=== PATIENT | female | born 1950 | race Caucasian/White ===

== ENCOUNTER 2016-09-17 07:42 | Outpatient (CLI) ==
[2016-02-28 11:35] VITALS: BMI 28.3
--- NOTE | 2016-09-17 08:07 | DI ---
EXAM: PA and lateral views of the chest HISTORY: Cough and weight loss COMPARISON: CT chest 02/13/2016 and Chest x-ray 02/11/2016 FINDINGS: The cardiomediastinal silhouette is normal. There is no pneumothorax or pleural effusion . There is no consolidation, nodule or mass. The osseous structures demonstrate mild scattered deg enerative disease of the spine. There are surgical changes in the cervical spine and the right upper quadrant. IMPRESSION: No acute cardiopulmonary process or consolidation.
--- NOTE | 2016-09-17 08:49 | CT ---
EXAM: CT ABDOMEN AND PELVIS HISTORY: Weight loss, cough TECHNIQUE: CT abdomen and pelvis with intravenous contrast. Images were reconstructed using 5 mm se ction thickness. Reformations were prepared. 100 ml of Visipaque 320 FINDINGS: Comparison may be made to 06/17/2016. No focal hepatic lesions are identified. Spleen appears normal. Gallbladder is absent. There is d ilatation of the common bile duct estimated at least 1.1 cm. There is pancreatic ductal dilatation. No well-defined portahepatis, pancreatic or ductal mass is seen. No evidence of pancreatic inflam mation. Adrenal glands appear normal. Kidneys are within normal limits. Moderately severe atheros clerotic disease with no aneurysmal caliber of the aorta. No obvious retroperitoneal or mesenteric lymphadenopathy. Gastric wall is mildly thickened, nonspecific. The appendix has been removed. No well-defined mass of the colon within limits of this exam. Bowel gas pattern is within normal limits. Uterus is abs ent. Urinary bladder is grossly unremarkable. There is no ascites. No ventral abdominal wall defe ct is identified. Degenerative changes of the spine. Lung bases are grossly clear. IMPRESSION: 1. Post cholecystectomy state. Common bile duct dilatation similar to that previously seen. Mild dilatation of the main pancreatic duct also probably similar to that previously seen (prior study wa s unenhanced). No well-defined ductal or pancreatic mass identified. No intrahepatic biliary dilat ation No pancreatic inflammation or lymphadenopathy. Correlate clinically. Consider further workup if indicated. 2. Moderately severe atherosclerotic disease with no aneurysmal caliber of the aorta. 3. Diffuse, relatively mild gastric wall thickening may be secondary to gastritis. Correlate clini fawad. Upper gastrointestinal series or endoscopy can be considered if indicated.
== END 2016-09-17 07:43 | disposition home or self-care (01) ==
LOC: RAD 07:42
PROVIDERS: ATTEND Internal Medicine
DX: R63.4 Abnormal weight loss (principal); R05 Cough

== ENCOUNTER 2016-09-24 06:27 | Outpatient (CLI) ==
[2016-02-28 11:35] VITALS: BMI 28.3
--- NOTE | 2016-09-27 07:32 | ECHO2D ---
Date of Exam: 09/24/2016 Ordering Physician: DR. WOODS Reason for Echo: CHEST PAIN M-Mode Normal Adult Results LV Dimensions Normal Adult Results AoV Opening excursions >1.6 >1.6 LVEDD-base- 3.5-5.8 4.8 Ao root dimensions 2.0-3.7 2.7 LVESD-base- 3.1-4.6 L. Atrium dimensions 1.9-3.8 3.7 Post. Wall thickness 0.8-1.1 1.0 IV septum (thickness) 0.7-1.2 1.1 Post. Wall excursion 0.72-1.3 NORMAL Septal motion NORMAL Systolic motion R. Ventricular cavity 1.5-2.0 NORMAL LVEF 60% 62% Paradoxical septal wall motion NORMAL 2-D :2-D M Mode Echocardiogram was performed using apical four chamber and left parasternal long and short axis views. Mitral, tricuspid and aortic valves appear to be normal. Contractility of the left ventricle seems to be normal, so is the cavity size. Left atrial cavity size and aortic root appear to be normal. There is no pericardial effusion. There is no thrombus noted in the left ventricular or left aortic cavity. No mitral valve prolapse noted. M-MODE: MV: NORMAL AV: NORMAL TV: NORMAL PV: CHAMBER SIZE: NORMAL WALL MOTION: NORMAL PERICARDIUM: NORMAL INTERPRETATION: 1. NORMAL 2'D' ' M' MODE ECHOCARDIOGRAM [facility]
== END 2016-09-24 06:28 | disposition home or self-care (01) ==
LOC: CAR 06:27
PROVIDERS: ATTEND Internal Medicine
DX: R07.9 Chest pain, unspecified (principal)

== ENCOUNTER 2016-09-27 06:28 | Outpatient (CLI) ==
[2016-02-28 11:35] VITALS: BMI 28.3
--- NOTE | 2016-09-27 11:56 | NM ---
Cardiac Stress Test HISTORY: Chest pain. COMPARISON: None of this type. TECHNIQUE: Resting: The patient was injected with 32.1 mCi of 99m technetium Sestamibi (Cardiolite) intravenou sly after which a "resting" SPECT study of the heart was performed. Stress: The patient was stressed using a Jaime protocol and at the appropriate time injected with 1 3.2 mCi of 99m technetium Sestamibi (Cardiolite) after which a "stress" SPECT study of the heart was performed. Gated images of the heart were also obtained to assess wall motion and calculate ejectio n fraction. For details of the stress protocol employed, reference is made to the separate report o f the performing physician. FINDINGS: The stress perfusion images demonstrate modest decreased activity in the mid to basal inf erolateral wall segment, which appears to improve at rest. The computer recesses this decrease in ac tivity is equivocal. The resting perfusion images demonstrate no evidence of significant redistribut ion/ischemia elsewhere. The left ventricular ejection fraction (LVEF) is 62 %. The left ventricular wall motion was not directly assessed. IMPRESSION: 1. Left ventricular myocardial perfusion demonstrates evidence of modest decreased activity in the mid to basal inferolateral wall segment which improves at rest as discussed in the report. Computer assessment consider this equivocal for ischemia. The examination shows no evidence of ischemia els ewhere. 2. The left ventricular ejection fraction (LVEF) is 62 %. 3. The left ventricular wall motion was not directly assessed.
--- NOTE | 2016-09-29 09:57 | STRESSECHO ---
Date of Test: 09/27/16 Reason for Exam: CHEST PAIN Ordering Physician : KAYCEE WOODS Current Medications: LEXAPRO, ULTRAM, NEURONTIN, LISINOPRIL, ZOLOFT, BUSPAR Physical Findings: S1, S2, NO S3 Resting EKG: SINUS RHYTHM/ NO ACUTE CHANGES Target Heart Rate: 130/154 STAGE MPH/GRADE HEART RATE BPM BLOOD PRESSURE mmhg RHYTHM S-T SEGMENT +/- UP DOWN SYMPTOMS,COMMENTS At Rest 70 150/100 SR X NONE 1 1.7/10% 112 206/86 SR X NONE 2 2.5/12% 3 3.4/14% 4 4.2/16% 5 5.0/18% Immediately after 132 210/96 SR X SHORT OF BREATH Durations of Exercise: 5:08 Maximum Heart Rate Reached: 132 Reason for Termination: SHORT OF BREATH 3 MIN POST EXERCISE: HR 81 BPM, BP 182/84 MMHG, SINUS RHYTHM, S-T SEGMENT+/- , SHORT OF BREATH INTERPRETATION: 94% OXYGEN SATURATION WITH EXERCISE ON ROOM AIR METS 7.0 1. TEST NEGATIVE FOR ISCHEMIA ST-T WAVE CHANGES 2. NO CHEST PAIN OR CHEST DISCOMFORT 3. NO ARRHYTHMIAS 4. BLOOD PRESSURE RESPONSE: HYPERTENSION AT REST AND WITH EXERCISE NORMAL LEFT VENTRICULAR CONTRACTILITY--RESTING AND POST EXERCISE MTDD
--- NOTE | 2016-09-29 10:02 | ECHOSTRESS ---
Date of Exam: 09/27/16 Ordering Physician: KAYCEE WOODS Reason for Echo: CHEST PAIN, STRESS TEST--NO ISCHEMIA M-Mode Normal Adult Results LV Dimensions Normal Adult Results AoV Opening excursions >1.6 LVEDD-base- 3.5-5.8 Ao root dimensions 2.0-3.7 LVESD-base- 3.1-4.6 L. Atrium dimensions 1.9-3.8 Post. Wall thickness 0.8-1.1 IV septum (thickness) 0.7-1.2 Post. Wall excursion 0.72-1.3 Septal motion Systolic motion R. Ventricular cavity 1.5-2.0 LVEF 60% Paradoxical septal wall motion 2-D: NORMAL LEFT VENTRICULAR CONTRACTILITY--RESTING AND POST EXERCISE M-MODE: MV: AV: TV: PV: CHAMBER SIZE: WALL MOTION: NORMAL LEFT VENTRICULAR CONTRACTILITY--RESTING AND POST EXERCISE PERICARDIUM: INTERPRETATION: 1. NORMAL LEFT VENTRICULAR CONTRACTILITY--RESTING AND POST EXERCISE MTDD
== END 2016-09-27 06:29 | disposition home or self-care (01) ==
LOC: CAR 06:28
PROVIDERS: ATTEND Internal Medicine
DX: R07.9 Chest pain, unspecified (principal)

== ENCOUNTER 2016-11-29 12:53 | Outpatient (CLI) | payer OTHER ==
[2016-02-28 11:35] VITALS: BMI 28.3
--- NOTE | 2016-11-29 13:53 | DI ---
EXAM: Three x-rays of the right shoulder. Comparison: X-ray of the chest performed 02/11/2016. Reason for exam: Right shoulder pain. FINDINGS: There are degenerative changes seen within the right shoulder. The humeral head articula barbara with the bony glenoid. The acromioclavicular joint space and glenohumeral joint spaces are well maintained. No acute fracture or dislocation. Operative changes are seen after anterior cervical d iscectomy and fusion. Impression: 1. No acute fracture or dislocation in the right shoulder. 2. Mild to moderate arthrosis. Image interpretation faxed to [facility] at [phone] hours on the day of examination 11/29
== END 2016-11-29 12:54 | disposition home or self-care (01) ==
LOC: RAD 12:53
PROVIDERS: ATTEND Internal Medicine
DX: M25.511 Pain in right shoulder (principal)

== ENCOUNTER 2017-03-16 17:20 | Emergency (ER) ==
[2017-03-16 17:21] VITALS: BMI 28.3
[2017-03-16 17:25] VITALS: BP 167/81; TEMP 98.2
--- NOTE | 2017-03-16 17:36 | ED.PDOC ---
General ED Provider: Dr. ARELI MORALES Chief Complaint: Extremity Pain/Injury Stated Complaint: right shoulder pain Time Seen by Physician: 17:30 Mode of Arrival: Walk-In Information Source: Patient Exam Limitations: No limitations Primary Care Provider: KAYCEE WOODS Nursing and Triage Documentation Reviewed and Agree: Yes Musculoskeletal Complaint Exam - Shoulder Pain Complaint/Exam Mechanism of Injury: Reports: No known trauma Onset/Duration: chronic Symptoms Are: Still present Timing: Constant Episodes Lasting: chronic Initial Severity: Moderate Current Severity: Moderate Location: Reports: Discrete Character: Reports: Aching Alleviating: Reports: Rest Aggravating: Reports: Movement, Lifting, Flexion, Extension, Internal rotation Associated Signs and Symptoms: Denies: Swelling, Redness, Bruising, Fever, Weakness, Numbness, Tingling Related History: Reports: Similar episode Non-Orthopedic Risk Factors: Reports: None DVT Risk Factors: Reports: None Related Surgical History: Reports: None Differential Diagnoses: Closed Fracture Review of Systems - Review Of Systems Constitutional: Reports: No symptoms Eyes: Reports: No symptoms Ears, Nose, Mouth, Throat: Reports: No symptoms Respiratory: Reports: No symptoms Cardiac: Reports: No symptoms GI: Reports: No symptoms : Reports: No symptoms Musculoskeletal: Reports: Other (shoulder pain) Skin: Reports: No symptoms Neurological: Reports: No symptoms Endocrine: Reports: No symptoms Hematologic/Lymphatic: Reports: No symptoms All Other Systems: Reviewed and Negative Past Medical History - Past Medical History Endocrine: Reports: None Cardiovascular: Reports: Hypertension Respiratory: Reports: COPD Hematological: Reports: None Gastrointestinal: Reports: GERD Genitourinary: Reports: None Neuro/Psych: Reports: Anxiety, Depression Musculoskeletal: Reports: None Cancer: Reports: None Last Menstrual Period: hysterectomy - Surgical History General Surgical History: Reports: Hysterectomy, Appendectomy - Family History Family History: Reports: Unknown - Social History Smoking Status: Current every day smoker, Heavy tobacco smoker Hx Substance Use: No Alcohol Screening: None Physical Exam - Physical Exam Appearance: Well-appearing, No pain distress, Well-nourished Eyes: JUSTINO, EOMI, Conjunctiva clear ENT: Ears normal, Nose normal, Oropharynx normal Respiratory: Airway patent, Breath sounds clear, Breath sounds equal, Respirations nonlabored Cardiovascular: RRR, Pulses normal, No rub, No murmur GI/: Soft, Nontender, No masses, Bowel sounds normal, No Organomegaly Musculoskeletal: Normal strength, No edema, No calf tenderness, Limited ROM ( right shoulder ) Skin: Warm, Dry, Normal color Neurological: Sensation intact, Motor intact, Reflexes intact, Cranial nerves intact, Alert, Oriented Psychiatric: Affect appropriate, Mood appropriate Critical Care Note - Critical Care Note Total Time (mins): 0 Course - Course Vital Signs: Temp Pulse Resp BP Pulse Ox 03/16/17 17:21 98.2 F 79 20 167/81 H 97 Departure - Departure Time of Disposition: 17:36 (may at bedside discussed mri) Disposition: HOME SELF-CARE Discharge Problem: Shoulder pain Qualifiers: Chronicity: chronic Laterality: right Qualifier Code: (M25.511) Pain in right shoulder Instructions: Rotator Cuff Injury (ED), Rotator Cuff Tendinitis (ED), Tendinitis (ED) Condition: Good Pt referred to PMD for follow-up: Yes Additional Instructions: Please call your Family Physician as soon as possible to schedule a follow-up appointment. Allergies/Adverse Reactions: Allergies Sulfa (Sulfonamide Antibiotics) Adverse Reaction (Verified 03/16/17 17:27) Home Medications: Ambulatory Orders Diazepam [Valium] 5 mg PO BEDTIME 01/07/14 Gabapentin [Neurontin] 300 mg PO BID 01/07/14 Hydrocodone Bit/Acetaminophen [[place] 7.5-325] 1 tab PO QID 01/07/14 Omeprazole [Prilosec] 20 mg PO BIDAC 01/19/14 Buspirone HCl 30 mg PO BID 10/20/14 Fluticasone/Salmeterol 250/50 [Advair 250-50 Diskus] 1 puff IH BID #1 puff 10/20 Sertraline HCl [Zoloft] 100 mg PO BEDTIME 10/20/14 Tramadol HCl [Ultram] 50 mg PO TID 10/20/14 Lisinopril [Zestril] 40 mg PO BID #60 tablet 10/23/14 Aspirin [Aspir 81] 81 mg PO DAILY 11/05/16 Colestipol HCl 1 gm PO TID 11/05/16 Zofran Odt 4 mg PO Q6HR PRN 11/05/16 Disposition Discussed With: Patient
== END 2017-03-16 17:43 | disposition home or self-care (01) ==
LOC: ED 17:20
DX: M25.511 Pain in right shoulder (principal); G89.29 Other chronic pain; F17.210 Nicotine dependence, cigarettes, uncomplicated
CPT/HCPCS: 99282

== ENCOUNTER 2017-03-21 11:07 | Outpatient (CLI) ==
--- NOTE | 2017-03-21 12:13 | CT ---
EXAM: CT right shoulder without contrast HISTORY: Right shoulder pain COMPARISON: Radiograph 11/29/2016 TECHNIQUE: Multiple axial images of the right shoulder were obtained without intravenous contrast. Images were reformatted in the sagittal and coronal planes. FINDINGS: Bone mineralization is decreased. No fracture or dislocation identified. Moderate acrom ioclavicular joint space narrowing and spurring noted. Mild joint space narrowing and moderate norm inal osteophyte formation of the glenohumeral joint present. Spurring cystic change seen in the hum eral head. No fracture or dislocation identified. No localized soft tissue abnormality identified. Emphysematous changes seen in the visualized right lung. There has been previous ACDF. IMPRESSION: 1. Moderate osteoarthritis. 2. Cystic change of the humeral head suggests rotator cuff pathology.
== END 2017-03-21 11:08 | disposition home or self-care (01) ==
LOC: RAD 11:07
PROVIDERS: ATTEND Internal Medicine
DX: M25.511 Pain in right shoulder (principal)

== ENCOUNTER 2017-07-18 15:43 | Outpatient (RCR) ==
[2017-04-06 21:05] VITALS: BMI 25.8
--- NOTE | 2017-07-19 14:49 | RS.OPPTEV2 ---
Date of Note: 07/18/17 Visit #: 1 Date of Evaluation: 07/18/17 Payer Source: MEDICARE Treatment Diagnosis: Right shoulder pain History of Condition/Mechanism of Injury:: Patient reports progressive right UE pain. States her shoulder pain started ~ seven months ago and was not due to an injury. She also has had neck issues. She had a cervical fusion with metal plating over 15 years ago. Prior Level of Function.....Patient was independent with: ADL's, Self Care, Ambulation/Mobility, Community Integration/Access Functional Limitations: Sleep, Self Care, ADL's, Reaching, Pushing, Pulling, Lifting, Carrying, Community Access/Integration Current Subjective/complaints:: Patient reports right shoulder pain at rest and with use. States she wakes up at night often, due to pain. States she has difficulty performing household activities such as folding laundry or ironing because of increased pain. Reports limited motion in the right shoulder due to tightness and pain. States she went to the Orthopaedic clinic today and received an injection (not in the shoulder) and a prescription for a steroid dose pack. Reports having pain in the bicep region of the right UE as well as the shoulder joint. Treatment Side (optional): Right Medical History Medical History: Hypertension, COPD Medical History Comments:: Mitral valve prolapse, anxiety/depression Surgical History: Cholecystectomy Surgical History Comments:: Appendectomy, Cervical fusion with metal plating 15 + years ago Smoking Status: Current every day smoker Hx Home Medications: Lortab,valium,ultram,neurontin, prilosec,lisinopril,zoloft, buspar Patient's Goals: Her goal is to get relief of right UE pain and regain functional use of the right arm. Pain Assessment - Pain Description Pain Location: right UE, shoulder specifically Current Pain Intensity: 10/10 Worst Pain Intensity: not rated Functional Outcome Measure UE Functional Index: 23 (23/80=71.25% impairment) - G Codes & Severity Modifier G Codes & Modifier: Carry current CL. Carry goal CJ Source of G Code score: UE functional scale Observation - Observation Posture: Forward Head, Rounded Shoulders, Scapula Asymmetry (right elevated), Increased Thoracic Kyphosis Handedness: Right - ROM Comments: Cervical extension is 25% of normal AROM, flexion 75%, left rotation 50% , right rotation 30%. Shoulder ROM: Left WFL's - Right Shoulder ROM Right Shoulder Flexion: 72 (degrees AROM) Right Shoulder Extension: 50 (degrees AROM) Right Shoulder Abduction: 55 (degrees AROM) Right Shoulder External Rotation: 30 (degrees AROM) Comments: Right active shoulder scaption 60 degrees. PROM into flexion 110 degrees, abduction 80-85 degrees, ER 40 degrees. Patient reports less pain with PROM, compared to AROM. - Left Shoulder Strength Left Shoulder Flexion: 4 Good Left Shoulder Extension: 4 Good Left Shoulder Abduction: 4 Good Left Shoulder Adduction: 4 Good Left Shoulder External Rotation: 4 Good Left Shoulder Internal Rotation: 4 Good - Right Shoulder Strength Right Shoulder Flexion: 3+ Fair+ Right Shoulder Extension: 4 Good Right Shoulder Abduction: 3+ Fair+ Right Shoulder Adduction: 4 Good Right Shoulder External Rotation: 4- Good- Right Shoulder Internal Rotation: 4- Good- - Special Tests Shoulder Empty Can (Supraspinatus) Test: Positive Right Shoulder Yergason's Test: Positive Right Shoulder Speed's Sign Test: Positive Right Shoulder Apley's Scratch Test: Positive Right Shoulder Lal-Connor Impingement Test: Positive Right Category Director Strength Left Hand Category Director Strength: 42 lbs. Right Hand Category Director Strength: 35 lbs. Dynamometer Testing Position: 2nd Position Palpation Comments:: Patient reports tenderness in the middle to superior aspect of the right bicep muscle belly. Reports tenderness over the long head of the bicep tendon. Also reports tenderness over the insertion site of the supraspinatus and infraspinatus. Demonstrates marked muscle guarding throughout the right upper and middle traps. Sensation - Sensation Right Upper Extremity: Intact/Normal Left Upper Extremity: Intact/Normal Interventions - Exercise/Activities/Manual Therapy Exercises/Activities: Patient instructed in pendulum, scapular retraction, and wand for AAROM into right shoulder flexion and abduction. Advised to perform these in a range that does not increase her pain. Also discussed use of cold and heat. Manual Therapy: NA HOME EXERCISE PROGRAM: pendulum, scapular retraction, and wand for AAROM into right shoulder flexion and abduction. - Charges Timed Code Treatment Minutes: 50 mins Total Treatment Time: 50 mins Procedures billed for this date of service:: PITER [facility] Assessment Assessment: Patient presents to therapy with a diagnosis of right shoulder pain , primary osteoarthritis, and tendinopathy of right rotator cuff. She reports right UE pain, more at the right shoulder. Describes pain at rest and with use. She reports limited ROM and use of the right UE due to pain. She demonstrates limited right Active and Passive ROM and general weakness. She exhibits several positive signs of rotator cuff involvement. Right upper traps demonstrates marked increase in muscle tone possibly due to mechanical dysfunction of the right shoulder and/or cervical spine involvement. She will benefit from manual therapy, modalities, stretching and strengthening exercises to regain functional use of the right UE. Patient Education: Education of diagnosis, Body/Joint mechanics, Home Exercise Program, Education of Plan of Care Rehab Potential: Good Short Term Goals Goal #1: Active shoulder flexion to 90 degrees. Goal to be met by: 08/02/17 Goal #2: PROM right shoulder WFL's. Goal to be met by: 08/02/17 Goal #3: Pt independent with HEP. Goal to be met by: 08/02/17 Goal #4: Right shoulder pain at rest <5/10. Goal to be met by: 08/02/17 Medical Scribe Goals Goal #1: Pt knows HEP and to continue ex's to maintain functional level at D/c. Goal to be met by: 08/28/17 Goal #2: Score on UE functional scale improved to less than 39% impairment. Goal to be met by: 08/28/17 Goal #3: Right UE AROM WFL's to perform self care and light ADL's w/ min. pain. Goal to be met by: 08/28/17 Goal #4: Pt able to sleep through the night w/o interruption from right shoulder. Goal to be met by: 08/28/17 Plan - Treatment to be Provided Procedures: Therapeutic Exercises, Therapeutic Activity, Manual Therapy, Patient Education Modalities: Electrical Stimulation, Ultrasound/Phonophoresis, Cryotherapy, Hot Packs - Treatment Plan Frequency: 3 X week Duration: 3 weeks ORDER # VISITS AND/OR THROUGH DATE: 08/28/17 - Treatment Code (1) Shoulder pain Code(s): M25.519 - PAIN IN UNSPECIFIED SHOULDER Qualifiers: Chronicity: chronic Laterality: right Qualified Code(s): M25.511 - Pain in right shoulder; G89.29 - Other chronic pain; G89.29 - Other chronic pain (2) Disorder of tendon of right shoulder region Code(s): M67.911 - UNSPECIFIED DISORDER OF SYNOVIUM AND TENDON, RIGHT SHOULDER Comments: M67.911 (3) Osteoarthritis Code(s): M19.90 - UNSPECIFIED OSTEOARTHRITIS, UNSPECIFIED SITE Qualifiers: Osteoarthritis location: shoulder Osteoarthritis type: primary Laterality : right Qualified Code(s): M19.011 - Primary osteoarthritis, right shoulder
--- NOTE | 2017-08-04 09:28 | RS.QUICKDC ---
Discharge from PT Date of Discharge: 08/04/17 Number of Visits: 1 Reason for Discharge: Patient attended only the initial evaluation on 07/18/17. She did not show for scheduled appointments on 07/22/17 and 07/25/17. No further contact has been made by the patient to continue her therapy. No goals met due to lack of attendance. Patient discharged at this time.
== END 2017-08-14 ==
PROVIDERS: ATTEND Orthopaedic Surgery
DX: M67.911 Unspecified disorder of synovium and tendon, right shoulder (principal); M19.011 Primary osteoarthritis, right shoulder; M25.511 Pain in right shoulder; G89.29 Other chronic pain

== ENCOUNTER 2017-08-04 20:11 | Emergency (ER) ==
[2017-08-04 20:18] VITALS: BP 129/80; TEMP 98; BMI 25.5
--- NOTE | 2017-08-04 21:11 | ED.PDOC ---
General ED Provider: Dr. VIK CORTÉS-ER Chief Complaint: Chest Wall Injury/Pain Stated Complaint: i bent over and felt pain in my left ribs Time Seen by Physician: 21:09 Mode of Arrival: Walk-In Information Source: Patient Exam Limitations: No limitations Primary Care Provider: KAYCEE TREVINO Nursing and Triage Documentation Reviewed and Agree: Yes Reviewed sepsis parameters & appropriate labs ordered?: Yes System Inflammatory Response Syndrome: Not Applicable Sepsis Protocol: For patient's 13 years and over: Temp is 96.8 and below OR 101 and greater Pulse >90 BPM Resp >20/minute Acutely Altered Mental Status Are patient's symptoms suggestive of a new infection, such as: -Pneumonia -Skin, Soft Tissue -Endocarditis -UTI -Bone, Joint Infection -Implantable Device -Acute Abdominal Infection -Wound Infection -Meningitis -Blood Stream Catheter Infection -Unknown Trauma/Injury Complaint Exam - Truncal Trauma Complaint/Exam Location of Pain: Reports: Left, Chest Onset: today Symptoms Are: Still present Onset of Pain: Reports: Immediate Initial Severity: Mild Current Severity: Mild Mechanism: Reports: Other Aggravating: Reports: Movement, Deep breathing, Cough Associated Signs and Symptoms: Denies: Short of air, Chest pain, Cough, Hematuria, Abdominal pain, Fever, Nausea, Vomiting Related History: Reports: Prior rib fracture Immobilization Removed Post Exam: No Vertebral Tenderness Present: No Vertebral Deformity Present: No Trachial Deviation Present: No JVD Present: No Crepitus Present: No Diminished Breath Sounds: Yes Reproducible Pain at: left chest wall Muffled Heart Sounds Present: No Paradoxical Chest Wall Movement Present: No Abdominal Guarding Present: No Abdominal Rigidity Present: No Referred Shoulder Pain (Kehr's Sign) Present: No Skin Findings: Present: Normal findings Differential Diagnoses: Rib Fracture Review of Systems - Review Of Systems Constitutional: Reports: No symptoms Eyes: Reports: No symptoms Ears, Nose, Mouth, Throat: Reports: No symptoms Respiratory: Reports: No symptoms Cardiac: Reports: Chest pain (left chest wall) GI: Reports: No symptoms : Reports: No symptoms Musculoskeletal: Reports: No symptoms Skin: Reports: No symptoms Neurological: Reports: No symptoms Endocrine: Reports: No symptoms Hematologic/Lymphatic: Reports: No symptoms All Other Systems: Reviewed and Negative Past Medical History - Past Medical History Previously Healthy: No Endocrine: Reports: None Cardiovascular: Reports: Hypertension Respiratory: Reports: COPD Hematological: Reports: None Gastrointestinal: Reports: GERD Genitourinary: Reports: None Neuro/Psych: Reports: Anxiety, Depression Musculoskeletal: Reports: None Cancer: Reports: None Last Menstrual Period: na - Surgical History General Surgical History: Reports: Hysterectomy, Appendectomy - Family History Family History: Reports: Unknown - Social History Smoking Status: Current every day smoker, Heavy tobacco smoker Hx Substance Use: No Alcohol Screening: None - Immunizations Tetanus Shot up to Date: Yes Physical Exam - Physical Exam Appearance: Well-appearing, No pain distress, Well-nourished Pain Distress: Moderate Eyes: JUSTINO, EOMI, Conjunctiva clear ENT: Ears normal, Nose normal, Oropharynx normal Neck: Supple Respiratory: Airway patent, Breath sounds clear, Breath sounds equal, Respirations nonlabored Cardiovascular: RRR, Pulses normal, No rub, No murmur GI/: Soft, Nontender, No masses, Bowel sounds normal, No Organomegaly Musculoskeletal: Normal strength, ROM intact, No edema, No calf tenderness Skin: Warm, Dry, Normal color Neurological: Sensation intact Psychiatric: Affect appropriate, Mood appropriate Interpretation - Radiology Interpretation Radiology Interpretation By: Radiologist Radiology Results: Positive Exam Interpreted: CT Scan Critical Care Note - Critical Care Note Total Time (mins): 0 Course - Course Orders, Labs, Meds: Orders Category Date Time Status Hydromorphone HCl/Pf [Dilaudid 2 mg/ml Syringe] MEDS 08/04/17 21:20 Discontinued 2 mg IM ONCE STA Promethazine HCl [Phenergan 25 mg/ml Vial] MEDS 08/04/17 21:20 Discontinued 25 mg IM ONCE STA CT CHEST W/O CONTRAST Stat RADS 08/04/17 20:17 Completed Medications Discontinued Medications Generic Name Dose Route Start Last Admin Trade Name Joãoq PRN Reason Stop Dose Admin Hydromorphone HCl 2 mg 08/04/17 21:20 08/04/17 21:32 Dilaudid 2 Mg/Ml Syringe IM 08/04/17 21:21 2 mg ONCE STA Administration Promethazine HCl 25 mg 08/04/17 21:20 08/04/17 21:33 Phenergan 25 Mg/Ml Vial IM 08/04/17 21:21 25 mg ONCE STA Administration Vital Signs: Temp Pulse Resp BP Pulse Ox 08/04/17 20:13 98 F 73 20 129/80 96 Departure - Departure Time of Disposition: 21:18 Disposition: HOME SELF-CARE Discharge Problem: Closed rib fracture Qualifiers: Encounter type: initial encounter Rib fracture type: single rib Laterality: left Qualified Code(s): S22.32XA - Fracture of one rib, left side, initial encounter for closed fracture Instructions: Rib Fracture (ED) Condition: Good Pt referred to PMD for follow-up: Yes Additional Instructions: percocet 10mg q 6hrs prn pain #15-you must talk to dr trevino about the aneurysm seen on ct scan Allergies/Adverse Reactions: Allergies Sulfa (Sulfonamide Antibiotics) Adverse Reaction (Verified 04/06/17 18:17) Home Medications: Ambulatory Orders Diazepam [Valium] 5 mg PO BEDTIME 01/07/14 Gabapentin [Neurontin] 300 mg PO BID 01/07/14 Hydrocodone Bit/Acetaminophen [[place] 7.5-325] 7.5 mg PO QID 01/07/14 Omeprazole [Prilosec] 20 mg PO BIDAC 01/19/14 Buspirone HCl 30 mg PO BID 10/20/14 Fluticasone/Salmeterol 250/50 [Advair 250-50 Diskus] 1 puff IH BID #1 puff 10/20 Sertraline HCl [Zoloft] 100 mg PO BEDTIME 10/20/14 Tramadol HCl [Ultram] 50 mg PO TID 10/20/14 Lisinopril [Zestril] 40 mg PO BID #60 tablet 10/23/14 Aspirin [Aspir 81] 81 mg PO DAILY 11/05/16 Colestipol HCl 1 gm PO TID 11/05/16 Zofran Odt 4 mg PO Q6HR PRN 11/05/16 Cephalexin [Keflex] 500 mg PO Q8HR #21 capsule 04/11/17 Prednisone 20 mg PO TID #11 tablet 04/11/17 Disposition Discussed With: Patient
--- NOTE | 2017-08-04 21:14 | CT ---
EXAM: CT chest without contrast HISTORY: Left chest wall trauma COMPARISON: 04/06/2017 TECHNIQUE: CT chest performed without intravenous contrast. Coronal and sagittal reformatted images obtained. 3-D reformatted images created. FINDINGS: Thoracic inlet unremarkable. Heart normal in size. No pericardial effusion. Moderate at herosclerosis. A 1.2 x 0.6 cm outpouching from the inferior aortic arch may represent small saccular aneurysm or ductus diverticulum, unchanged. Moderate atherosclerosis. Esophagus unremarkable. No ly mphadenopathy identified, noting limitations without contrast. Visualized portion upper abdomen demo nstrates no acute abnormality. Patient status post cholecystectomy. Mild dilation of the common marisol e duct appears unchanged and is likely postsurgical. Central airway patent. Mild centrilobular emph ysema. Mild scattered subsegmental atelectasis and/or scarring. No airspace consolidation. No pleu ral effusion. No pneumothorax. Granulomatous calcification. No acute abnormalities of the bones. Cervical spinal fusion hardware. Degenerative change in the spine. Mild to moderate rightward curva ture thoracolumbar thoracic spine. Probable nondisplaced fracture left lateral 11th rib, only seen o n sagittal imaging, image 11 IMPRESSION: 1. Probable nondisplaced fracture left lateral 11th rib as described. Recommend clinical correlatio n for point tenderness. 2. No acute cardiopulmonary process. 3. A 1.2 x 0.6 cm outpouching from the inferior aortic arch may represent small saccular aneurysm or ductus diverticulum, unchanged. 4. Mild emphysema. Scattered subsegmental atelectasis and/or scarring. 5. Atherosclerosis.
[2017-08-04] MEDS ORDERED: DILAUDID 2 MG/ML SYRINGE IM STA (21:20)
[2017-08-04] MEDS ORDERED: PHENERGAN 25 MG/ML VIAL IM STA (21:20)
== END 2017-08-04 21:41 | disposition home or self-care (01) ==
LOC: ED 20:11
DX: S22.32XA Fracture of one rib, left side, initial encounter for closed fracture (principal); F17.210 Nicotine dependence, cigarettes, uncomplicated
CPT/HCPCS: 96372; 99282

== ENCOUNTER 2017-08-10 14:48 | Inpatient (IN) | payer OTHER ==
[2017-08-10] MEDS ORDERED: MORPHINE 4 MG/ML VIAL IVP PRN (15:14)
[2017-08-10] MEDS ORDERED: ATROPINE SULFATE PFS IVP PRN (15:14)
[2017-08-10] MEDS ORDERED: VISTARIL INJ IM PRN (15:14)
[2017-08-10] MEDS ORDERED: NITROSTAT SL PRN (15:14)
[2017-08-10] MEDS ORDERED: TYLENOL PO PRN (15:14)
[2017-08-10] MEDS ORDERED: DECADRON 4 MG/ML SDV IM STA (15:18)
[2017-08-10] MEDS ORDERED: TORADOL IVP PRN (15:18)
--- NOTE | 2017-08-10 15:48 | DI ---
EXAM: CHEST FRONTAL AND LATERAL VIEWS HISTORY: Bronchitis. COMPARISON: 09/17/2016 FINDINGS: Heart size remains within normal limits. There is aortic atherosclerosis. Chronic-appear ing interstitial changes diffusely. No acute infiltrates are seen. No vascular congestion. There is no consolidation, visible pleural fluid or pneumothorax. There is scoliosis convex to the right. St abilization hardware over the lower cervical spine. IMPRESSION: No acute cardiopulmonary process.
[2017-08-10] MEDS ORDERED: NON-FORMULARY MEDICATION (Zofran Odt 4 MG) PO PRN (17:26)
[2017-08-10] MEDS: DEXTROSE 5%-1/2NS IV SOLUTION 1,000 ML IV SCH (17:42)
[2017-08-10] MEDS: LEVAQUIN 500 MG in PREMIX 100 ML D5W 1 BAG IV SCH (17:44)
[2017-08-10] MEDS: XOPENEX 1.25 MG NEB SCH ×2 (18:06→23:38)
[2017-08-10] MEDS: PERCOCET 10-325 PO PRN (18:25)
[2017-08-10] MEDS ORDERED: BUSPAR ONE (20:36)
[2017-08-10] MEDS ORDERED: ZOLOFT ONE (20:37)
[2017-08-10] MEDS: NEURONTIN PO SCH (20:58)
[2017-08-10] MEDS: COLESTID PO SCH (20:58)
[2017-08-10] MEDS: ZESTRIL PO SCH (20:59)
[2017-08-10] MEDS: VALIUM PO SCH (20:59)
[2017-08-10] MEDS ORDERED: BUSPIRONE HCL 30 MG PO SCH (21:00)
[2017-08-10] MEDS ORDERED: NON-FORMULARY MEDICATION (Sertraline Hcl [Zoloft] 100 MG) PO SCH (21:00)
[2017-08-11] MEDS: XOPENEX 1.25 MG NEB SCH ×4 (04:20→23:16)
[2017-08-11] MEDS: PERCOCET 10-325 PO PRN ×3 (04:49→19:16)
[2017-08-11] MEDS: PRILOSEC PO SCH ×2 (05:45→17:56)
[2017-08-11] MEDS: DEXTROSE 5%-1/2NS IV SOLUTION 1,000 ML IV SCH ×2 (07:27→20:23)
[2017-08-11] MEDS ORDERED: ZOFRAN TAB PO PRN (07:38)
[2017-08-11] MEDS ORDERED: ASPIRIN EC PO SCH (09:00)
[2017-08-11] MEDS ORDERED: DECADRON 4 MG/ML SDV IM ONE (09:00)
[2017-08-11] MEDS: ASPIRIN EC PO SCH (10:40)
[2017-08-11] MEDS: NEURONTIN PO SCH ×2 (10:41→20:16)
[2017-08-11] MEDS: BUSPAR PO SCH ×2 (10:41→20:17)
[2017-08-11] MEDS: ZESTRIL PO SCH ×2 (10:42→20:17)
[2017-08-11] MEDS: COLESTID PO SCH ×3 (10:43→20:17)
[2017-08-11] MEDS: LEVAQUIN 500 MG in PREMIX 100 ML D5W 1 BAG IV SCH (10:43)
[2017-08-11] MEDS: VALIUM PO SCH (20:17)
[2017-08-11] MEDS: ZOLOFT PO SCH (20:18)
[2017-08-12] MEDS: XOPENEX 1.25 MG NEB SCH ×4 (05:44→23:12)
[2017-08-12] MEDS: PRILOSEC PO SCH ×2 (05:46→16:56)
[2017-08-12] MEDS: PERCOCET 10-325 PO PRN ×4 (05:49→20:21)
[2017-08-12] MEDS: BUSPAR PO SCH ×2 (08:53→20:21)
[2017-08-12] MEDS: LEVAQUIN 500 MG in PREMIX 100 ML D5W 1 BAG IV SCH (08:54)
[2017-08-12] MEDS: ZESTRIL PO SCH ×2 (08:54→20:22)
[2017-08-12] MEDS: NEURONTIN PO SCH ×2 (08:54→20:21)
[2017-08-12] MEDS: ASPIRIN EC PO SCH (08:54)
[2017-08-12] MEDS: COLESTID PO SCH ×3 (08:54→20:22)
[2017-08-12] MEDS: DEXTROSE 5%-1/2NS IV SOLUTION 1,000 ML IV SCH ×2 (09:00→20:24)
--- NOTE | 2017-08-12 11:25 | HP ---
DATE OF SERVICE: 08/10/17 REASON FOR HOSPITALIZATION/HISTORY OF PRESENT ILLNESS: Went to [facility] 08/04 after falling fractured 11th rib on left. Lortab not helping, can't take deep breath. Percocet helped. Coughing more /yellowish sputum. PAST MEDICAL HISTORY: Hypertension COPD GERD Anxiety Depression Mitral valve prolapse PAST SURGICAL HISTORY: Hysterectomy Appendectomy Gallbladder Neck surgery Rectal fistula REVIEW OF SYSTEMS: CONSTITUTIONAL: No fever, Fatigue. HEENT: Sinus drainage, no sore throat. RESPIRATORY: Cough, no congestion. CARDIOVASCULAR: Atypical chest pain for coronary artery disease Pleuritic type , mild left sided. No angina, CHF symptoms, palpitations. Shortness of breath. GASTROINTESTINAL: No melena or abdominal pain. No GERD. GENITOURINARY: No hematuria, no prostatism, no polyuria. HOSPICE SUPERINTENDENT: No blackout, no dizziness, no headache, no double vision. MUSCULOSKELETAL: Osteoarthritis pain, no joint swelling. ENDOCRINE: No weight loss, no weight gain. SKIN: Not dry, no rash. PSYCHIATRIC: Not anxious, no depression, no suicidal thoughts, no homicidal thoughts. SOCIAL HISTORY: Marital Status: . Alcohol Usage:Yes. Tobacco Usage: Yes. FAMILY HISTORY: Heart problems MEDICATIONS: Zofran 4mg PO 8 hours PRN Colestid 1 gram three times day Norvasc 5mg PO adelina Omeprazole 30mg two capules PO before meals two times per day Zestril 40mg one tablet PO two times per day Valium 5mg one tablet PO one time per day at night Hydrocodone/Acetaminophen 7.5-325mg one tablet PO four times per day as needed for pain Buspirone 15mg two tablet by PO two times per day Ultram 50mg one tablet PO three times per day Zoloft 100mg take one and one half tablet daily by oral route one time per day Neurontin 300mg one tablet by oral route two times per day Ipratropium-Albuterol 0.5mg -3mg /3ml solution for nebulization inhale 3 milliliters by nebulization route four times per day. ALLERGIES: Augmentin Chantix Nubain Sulfa Vytorin PHYSICAL EXAMINATION: V/S: Pulse 106, blood pressure 90/48, temperature 98.6, pulse ox 100, weight 149, BMI 25.6 and height 5'4. GENERAL APPEARANCE: Oriented times three. HEENT: Normal. NECK: No JVP, no bruits. RESPIRATORY: Lungs decreased breath sounds. CARDIOVASCULAR: S1, S2, no S3, no murmurs. No cyanosis, clubbing. No ascites. GI/ABDOMEN: No tenderness. Bowel sounds are active. EXTREMITIES: Edema, pulses +1, equal. HOSPICE SUPERINTENDENT: Deep tendon reflexes, sensory, motor and gait all normal. RECTAL: 03/30 Dr. Rivera. PELVIC: Hysterectomy, Papsmear-Ridott, Refused Mammogram. LABS: ABG on room air pH 7.3, pCO2 40, pO2 69, base excess negative 6, Bicarb 20, TCO2 21, O2 92, WBC 5.98, hgb 13.1, hct 39.3, plt count 175, sodium 138, potassium 4.6, BUN 25, creatinine 1.33, GFR 40, AST 22, ALT 27, total protein 6.6, TSH 1.248, Alkaline phosphatase 91, Rapid Flu A&B both negative. Chest x- ray shows no acute cardiopulmonary processes. ASSESSMENT: 1. Acute bronchitis 2. 11th rib fracture 3. Pleuritic left lower sided pain. 4. Outpouching inferior aortic arch saccular aneurysm per CT 07/31 1.2. X 0.6. 5. COPD 6. Chronic bronchitis 7. BETO 8. Hypertension 9. Dyslipidemia 10.Depression 11.Chronic kidney disease stage 2 12.Muscle spasm 13.ASHD 14.Neuropathy 15.Radiculopathy PLAN: 1. Admit 2. Routine telemetry orders 3. 2cc Decadron IM today 4. 1cc Decadron IM tomorrow 5. 1,000cc 55 1/2 normal 12 hourly 6. ABG today 7. Rapid Flu A&B 8. Sputum for culture and sensitivity 9. Levaquin 500mg IV daily AM 10.Xopenex Q 6 hours 11.Toradol 30mg IV Q 8 hourly for pain 12.TSH 13.Continue all home medications. TIME SPENT: More than 70 minutes. MTDD
[2017-08-12] MEDS: VALIUM PO SCH (20:21)
[2017-08-12] MEDS: ZOLOFT PO SCH (20:21)
[2017-08-13] MEDS: XOPENEX 1.25 MG NEB SCH ×2 (04:00→11:42)
[2017-08-13] MEDS: PERCOCET 10-325 PO PRN ×2 (05:30→10:49)
[2017-08-13] MEDS: PRILOSEC PO SCH (05:30)
[2017-08-13] MEDS: ASPIRIN EC PO SCH (08:40)
[2017-08-13] MEDS: DEXTROSE 5%-1/2NS IV SOLUTION 1,000 ML IV SCH (08:40)
[2017-08-13] MEDS: COLESTID PO SCH (08:40)
[2017-08-13] MEDS: BUSPAR PO SCH (08:40)
[2017-08-13] MEDS: LEVAQUIN 500 MG in PREMIX 100 ML D5W 1 BAG IV SCH (08:40)
[2017-08-13] MEDS: ZESTRIL PO SCH (08:40)
[2017-08-13] MEDS: NEURONTIN PO SCH (08:40)
[2017-08-13 11:22] VITALS: BP 107/61; TEMP 97.6
--- NOTE | 2017-09-05 10:33 | PN ---
DATE OF SERVICE: 08/11/17 SUBJECTIVE: This 66-year-old white female is hospitalized with acute bronchitis/pneumonitis , left-sided rib fracture. The patient's condition has improved. She is feeling a lot better. Her hydration status seems to have improved with good skin turgor. REVIEW OF SYSTEMS: CONSTITUTIONAL: No night sweats. No fatigue, malaise, lethargy. No fever or chills. HEENT: Eyes: No visual changes. No eye pain. No eye discharge. ENT: No runny nose. No epistaxis. No sinus pain. No sore throat. No odynophagia. No congestion. RESPIRATORY: Cough with yellowish sputum production. No hemoptysis. No shortness of breath. No PND. CARDIOVASCULAR: No angina symptoms. No CHF symptoms. No atypical chest pain for CAD. No palpitations. No orthopnea. Pleuritic pain is a lot better. GASTROINTESTINAL: No abdominal pain. No nausea or vomiting. No diarrhea or constipation. No hematemesis. No hematochezia. GENITOURINARY: No urgency. No frequency. No dysuria. No hematuria. No obstructive symptoms. No discharge. No pain. No significant abnormal bleeding. MUSCULOSKELETAL: No musculoskeletal pain; no joint swelling. NEUROLOGICAL: No headache. No neck pain. No syncope. No seizures. No dizziness. PSYCHIATRIC: Not anxious. No depression. No suicidal thoughts. No homicidal thoughts. SKIN: No rash. No lesions. No wounds. ENDOCRINE: No unexplained weight loss. No weight gain. HEMATOLOGIC/LYMPHATIC: No anemia. No purpura. No petechiae. No prolonged or excessive bleeding. No palpable lymph nodes. PHYSICAL EXAMINATION: HEENT: Head normocephalic, atraumatic. Eyes: Extraocular muscles are intact. Pupils are equal, round and reactive to light and accommodation. Ears: No lesions. Nose appeared normal. Throat: No exudate or erythema. NECK: Supple. No JVD, no carotid bruit. No lymphadenopathy or thyromegaly. LUNGS: Decreased breath sounds with good air entry. Still mild expiratory wheeze. Percussion note normal. Chest symmetrical. No PND. No orthopnea. HEART: S1, S2, no S3. No murmurs. No cyanosis or clubbing. No ascites. Pulses: Dorsalis pedis and posterior tibial pulses +1 to +2 both sides. ABDOMEN: Soft. Nontender. Bowel sounds active. No CVA tenderness. No mass felt. EXTREMITIES: No edema. Full range of motion of all extremities, equal. NEUROLOGIC: No focal deficit. Cranial nerves II through XII are grossly intact. No headache, no double vision or headache. SKIN: Not dry. Intact. Turgor - normal. LYMPHATIC: No palpable lymph nodes/no lymphedema. MUSCULOSKELETAL: Normal joints with no swelling. Muscle tone is normal. LABS: WBC 5,900, hemoglobin 13, hematocrit 39. Creatinine 1.3, BUN 25, potassium 4.6. ASSESSMENT: 1. ACUTE BRONCHITIS/PNEUMONITIS IMPROVING 2. SEVERE CHRONIC LUNG DISEASE 3. FALL WITH LEFT-SIDED RIB FRACTURE PLAN: 1. Continue IV antibiotics, IV steroids 2. IV fluids 3. Nebs treatment 4. Counseling for smoking done The patient was seen and examined with the nurse practitioner. TIME SPENT: More than 30 minutes. Plan and coordination of the patient's care discussed in the presence of nurse. TIMMY
--- NOTE | 2017-09-05 13:50 | PN ---
DATE OF SERVICE: 08/13/17 SUBJECTIVE: 66-year-old white female hospitalized with acute pneumonitis, bronchitis with flu type of symptoms. The patient had bilateral wheezing. Her problems started when she fell and fractured the left side of T11 rib. Since then she has had symptoms of bronchitis and almost pneumonitis. REVIEW OF SYSTEMS: CONSTITUTIONAL: No night sweats. No fatigue, malaise, lethargy. No fever or chills. HEENT: Eyes: No visual changes. No eye pain. No eye discharge. ENT: No runny nose. No epistaxis. No sinus pain. No sore throat. No odynophagia. No congestion. RESPIRATORY: Mild cough and still has mild pain, left-sided posteriorly. No hemoptysis. No shortness of breath. CARDIOVASCULAR: No angina symptoms. No CHF symptoms. No atypical chest pain for CAD. No palpitations. No orthopnea. GASTROINTESTINAL: No abdominal pain. No nausea or vomiting. No diarrhea or constipation. No hematemesis. No hematochezia. GENITOURINARY: No urgency. No frequency. No dysuria. No hematuria. No obstructive symptoms. No discharge. No pain. No significant abnormal bleeding. MUSCULOSKELETAL: No musculoskeletal pain; no joint swelling. NEUROLOGICAL: No headache. No neck pain. No syncope. No seizures. No dizziness. PSYCHIATRIC: Not anxious. No depression. No suicidal thoughts. No homicidal thoughts. SKIN: No rash. No lesions. No wounds. ENDOCRINE: No unexplained weight loss. No weight gain. HEMATOLOGIC/LYMPHATIC: No anemia. No purpura. No petechiae. No prolonged or excessive bleeding. No palpable lymph nodes. PHYSICAL EXAMINATION: GENERAL: The patient is oriented to time, place and person. VITAL SIGNS: Temperature 99.4, pulse 87, respiratory rate 20, BP 108/58, pulse ox 96%. HEENT: Head normocephalic, atraumatic. Eyes: Extraocular muscles are intact. Pupils are equal, round and reactive to light and accommodation. Ears: No lesions. Nose appeared normal. Throat: No exudate or erythema. NECK: Supple. No JVD, no carotid bruit. No lymphadenopathy or thyromegaly. LUNGS: Decreased breath sounds but good air entry. Percussion note normal. Chest symmetrical. HEART: S1, S2, no S3. No murmurs. No cyanosis or clubbing. No ascites. Pulses: Dorsalis pedis and posterior tibial pulses +1 to +2 both sides. ABDOMEN: Soft. Nontender. Bowel sounds active. No CVA tenderness. No mass felt. EXTREMITIES: No edema. Full range of motion of all extremities, equal. NEUROLOGIC: No focal deficit. Cranial nerves II through XII are grossly intact. No headache, no double vision or headache. SKIN: Not dry. Intact. Turgor - a lot better. LYMPHATIC: No palpable lymph nodes/no lymphedema. MUSCULOSKELETAL: Normal joints with no swelling. Muscle tone is normal. LABS: Hemoglobin 11.3, hematocrit 34, WBC 6,100, normal differential. Creatinine 1, BUN 19, potassium 4.1. ASSESSMENT: 1. PNEUMONITIS/BRONCHITIS SEEMS TO BE RESOLVING 2. SEVERE CHRONIC LUNG DISEASE 3. CHRONIC BRONCHITIS 4. HYPERTENSION 5. DYSLIPIDEMIA PLAN: 1. Counseling for smoking done. 2. 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 3. Continue steroids, p.o. 4. The patient will be discharged home. She is stable enough to be discharged. 5. The patient will be discharged on Levofloxacin 250 mg p.o. daily for five days and Prednisone 10 mg daily for five days. TIME SPENT: More than 30 minutes. Plan and coordination of the patient's care discussed in the presence of nurse. TIMMY
--- NOTE | 2017-09-05 14:27 | PN ---
DATE OF SERVICE: 08/12/17 SUBJECTIVE: 66-year-old white female hospitalized with acute bronchitis/pneumonitis. The patient's condition seems to be improving. She is still coughing and wheezing but much less than before. Her appetite has improved. REVIEW OF SYSTEMS: CONSTITUTIONAL: Mild fatigue and weakness. No night sweats. No malaise, lethargy. No fever or chills. HEENT: Eyes: No visual changes. No eye pain. No eye discharge. ENT: No runny nose. No epistaxis. No sinus pain. No sore throat. No odynophagia. No congestion. RESPIRATORY: Cough and congestion but much less than before. No hemoptysis. No shortness of breath. No PND. CARDIOVASCULAR: No angina symptoms. No CHF symptoms. No atypical chest pain for CAD. No palpitations. No orthopnea. GASTROINTESTINAL: Improved appetite. No abdominal pain. No nausea or vomiting. No diarrhea or constipation. No hematemesis. No hematochezia. GENITOURINARY: No urgency. No frequency. No dysuria. No hematuria. No obstructive symptoms. No discharge. No pain. No significant abnormal bleeding. MUSCULOSKELETAL: No musculoskeletal pain; no joint swelling. NEUROLOGICAL: No headache. No neck pain. No syncope. No seizures. No dizziness. PSYCHIATRIC: Not anxious. No depression. No suicidal thoughts. No homicidal thoughts. SKIN: No rash. No lesions. No wounds. ENDOCRINE: No unexplained weight loss. No weight gain. HEMATOLOGIC/LYMPHATIC: No anemia. No purpura. No petechiae. No prolonged or excessive bleeding. No palpable lymph nodes. PHYSICAL EXAMINATION: GENERAL: The patient is oriented to time, place and person. HEENT: Head normocephalic, atraumatic. Eyes: Extraocular muscles are intact. Pupils are equal, round and reactive to light and accommodation. Ears: No lesions. Nose appeared normal. Throat: No exudate or erythema. NECK: Supple. No JVD, no carotid bruit. No lymphadenopathy or thyromegaly. LUNGS: Decreased breath sounds with mild wheeze. Percussion note normal. Chest symmetrical. HEART: S1, S2, no S3. No murmurs. No cyanosis or clubbing. No ascites. Pulses: Dorsalis pedis and posterior tibial pulses +1 to +2 both sides. ABDOMEN: Soft. Nontender. Bowel sounds active. No CVA tenderness. No mass felt. EXTREMITIES: No edema. Full range of motion of all extremities, equal. NEUROLOGIC: No focal deficit. Cranial nerves II through XII are grossly intact. No headache, no double vision or headache. SKIN: Not dry. Intact. Turgor - normal. LYMPHATIC: No palpable lymph nodes/no lymphedema. MUSCULOSKELETAL: Normal joints with no swelling. Muscle tone is normal. ASSESSMENT: 1. The patient has improved alot. Pneumonitis seems to be resolving. Cardiovascular status stable with no evidence of CHF or coronary insufficiency. PLAN: 1. Continue Levafloxacin, steroids. 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 2. Advised to walk. 3. Pulmonary rehab - advised to join. 4. Pulmonary rehab discussed in detail, she declined. Counseling for smoking done. TIME SPENT: More than 30 minutes. Plan and coordination of the patient's care discussed in the presence of nurse. TIMMY
--- NOTE | 2017-09-05 14:51 | DS ---
DATE OF SERVICE: 08/13/17 FINAL DIAGNOSIS: 1. ACUTE BRONCHITIS 2. ACUTE PNEUMONITIS 3. CHRONIC LUNG DISEASE 4. SMOKING 5. GENERALIZED OSTEOARTHRITIS, SEVERE ESPECIALLY DJD SPINE 6. HYPERTENSION 7. DYSLIPIDEMIA 8. FALL WITH 10TH RIB FRACTURE DISCHARGE INSTRUCTIONS: Followup appointment - instructed to come back on Tuesday in the morning for followup. Advised to take it easy. MEDICATIONS AT DISCHARGE: Valium 5 mg p.o. bedtime [place] 7.5 mg p.o. q.i.d. Neurontn 300 mg p.o. b.i.d. Prilosec 20 mg p.o. b.i.d. a.c. Buspirone 30 mg p.o. b.i.d. Ultram 50 mg p.o. t.i.d. Zoloft 100 mg p.o. bedtime Zestril 40 mg p.o. b.i.d. Aspirin 81 mg p.o. daily Colestipol 1 gm p.o. t.i.d. Zofran 4 mg p.o. q.8h p.r.n. Percocet one tab p.o. q.4hr p.r.n. NEW PRESCRIPTIONS: Levofloxacin 250 mg p.o. daily 5 days Prednisone 10 mg p.o. daily for 5 days DIET INSTRUCTIONS: As tolerated ACTIVITY: As tolerated SMOKING: Advised to quit DISEASE SPECIFIC EDUCATION: Rest Counseling for smoking done HOSPITAL COURSE: 66-year-old white female hospitalized with acute bronchitis/pneumonitis. The patient had T12 fracture which probably was the culprit for her bronchitis/ pneumonitis type of symptoms. The patient was treated with Levofloxacin and steroids. Her condition has improved remarkably. She is up and about. Appetite has become normal. She has no chills or vomiting. Her pain for the rib fracture is much less than before. Condition at time of discharge stable. TIME SPENT: More than 60 minutes. [facility]
--- NOTE | 2017-09-05 14:54 | PN ---
CODING FOR BILLING 08/10/17 LEVEL 5 08/11/17 INTERMEDIATE 08/12/17 INTERMEDIATE 08/13/17 DISCHARGE MTDD
== END 2017-08-13 12:30 | disposition home or self-care (01) | DRG 190 ==
LOC: MEDSURG A 14:48
PROVIDERS: ADMIT Internal Medicine; ATTEND Internal Medicine
DX: J44.0 Chronic obstructive pulmonary disease with (acute) lower respiratory infection (principal); J18.9 Pneumonia, unspecified organism; J20.9 Acute bronchitis, unspecified; F17.210 Nicotine dependence, cigarettes, uncomplicated; M19.90 Unspecified osteoarthritis, unspecified site; M47.9 Spondylosis, unspecified; I10 Essential (primary) hypertension; E78.5 Hyperlipidemia, unspecified; S22.32XD Fracture of one rib, left side, subsequent encounter for fracture with routine healing; W19.XXXD Unspecified fall, subsequent encounter; Z79.899 Other long term (current) drug therapy
CPT/HCPCS: 36415; 80053; 81001; 82550; 82803; 84443; 84484; 85025; 87070; 87502; 93005; 93010; 94640; 99223; 99232; 99239

== ENCOUNTER 2017-09-20 13:19 | Inpatient (IN) ==
--- NOTE | 2017-09-20 15:03 | ED.PDOC ---
General ED Provider: Dr. VIK JEROME Chief Complaint: Respiratory Complaint Stated Complaint: Chest congestion -onset cough/congestion with shortness of breath. Had been sick for 2days. Has has had chills at times and her sister discovered she was ill today.Has hx of COPD and has oygent to use at home but does not use consistently. Has bilateral wheezes and a loose cough which is non- productive--fever at times. Sister concerned that she at times becomes confused sees individuals that are not truly present. Time Seen by Physician: 14:50 Mode of Arrival: Walk-In Information Source: Patient Exam Limitations: Clinical condition Primary Care Provider: KAYCEE WOODS Nursing and Triage Documentation Reviewed and Agree: Yes Reviewed sepsis parameters & appropriate labs ordered?: Yes System Inflammatory Response Syndrome: Not Applicable Sepsis Protocol: For patient's 13 years and over: Temp is 96.8 and below OR 101 and greater Pulse >90 BPM Resp >20/minute Acutely Altered Mental Status Are patient's symptoms suggestive of a new infection, such as: -Pneumonia -Skin, Soft Tissue -Endocarditis -UTI -Bone, Joint Infection -Implantable Device -Acute Abdominal Infection -Wound Infection -Meningitis -Blood Stream Catheter Infection -Unknown System Inflammatory Response Syndrome: Not Applicable Respiratory Complaint Exam - Respiratory Complaint/Exam Symptoms Are: Still present Timing: Intermittent Initial Severity: Moderate Current Severity: Moderate Location: Chest Character: Reports: Productive cough Aggravating: Reports: Exertion Alleviating: Reports: Bronchodilators Associated Signs and Symptoms: Reports: Dyspnea, Fever, Chills, Chest pain, Pleuritic chest pain, Wheezing, Dizziness, Nasal congestion, Hoarseness Related History: Reports: Similar episode Related Surgical History: Reports: None Pulmonary Embolism Risk Factors: None Cardiac Risk Factors: Reports: None Pseudomonas Risk Factors: Reports: None Tuberculosis Risk Factors: Reports: None Status Asthmaticus Risk Factors: Reports: None Home Oxygen Use: Yes Recent Stress Test: No Recent Echo/LV Function: No Current Antibiotic Use: No Current Asthma Medication Use: Yes Respiratory Distress: None Review of Systems - Review Of Systems Constitutional: Reports: Chills, Fever, Malaise, Weakness, Loss of appetite Eyes: Reports: No symptoms Ears, Nose, Mouth, Throat: Reports: Nose discharge Respiratory: Reports: Cough, Short of air, Wheezing Cardiac: Reports: No symptoms GI: Reports: No symptoms : Reports: No symptoms Musculoskeletal: Reports: No symptoms Skin: Reports: No symptoms Neurological: Reports: No symptoms, Anxiety, Cognitive dysfunction Endocrine: Reports: No symptoms Hematologic/Lymphatic: Reports: No symptoms All Other Systems: Reviewed and Negative Past Medical History - Past Medical History Previously Healthy: No Endocrine: Reports: None Cardiovascular: Reports: Hypertension Respiratory: Reports: COPD Hematological: Reports: None Gastrointestinal: Reports: GERD Genitourinary: Reports: None Neuro/Psych: Reports: Anxiety, Depression Musculoskeletal: Reports: None Cancer: Reports: None Last Menstrual Period: hysterectomy - Surgical History General Surgical History: Reports: Hysterectomy, Appendectomy - Family History Family History: Reports: Unknown - Social History Smoking Status: Current every day smoker, Heavy tobacco smoker Hx Substance Use: No Alcohol Screening: None Physical Exam - Physical Exam Appearance: Ill-appearing Ill-appearing: Moderate Pain Distress: None Eyes: JUSTINO, EOMI, Conjunctiva clear ENT: Ears normal, Nose normal, Oropharynx normal Neck: Nonsupple Respiratory: Airway patent, Breath sounds equal (Throughout ), Breath sounds diminished, Respirations nonlabored, Wheezes Cardiovascular: RRR, Pulses normal, No rub GI/: No masses Musculoskeletal: Normal strength, ROM intact, No edema, No calf tenderness Skin: Warm, Dry, Pale Neurological: Sensation intact, Motor intact Psychiatric: Affect appropriate, Mood appropriate Critical Care Note - Critical Care Note Total Time (mins): 0 Course - Course Hematology/Chemistry: 09/20/17 15:05 09/20/17 15:05 Orders, Labs, Meds: Lab Review 09/20/17 09/20/17 09/20/17 15:03 15:05 15:05 WBC 9.76 RBC 4.05 L Hgb 12.4 Hct 36.1 L MCV 89.1 MCH 30.6 MCHC 34.3 RDW Coeff of Tanner 12.8 Plt Count 191 Immature Gran % (Auto) 0.3 Neut % (Auto) 72.0 Lymph % (Auto) 19.7 [place] % (Auto) 7.1 Eos % (Auto) 0.4 Baso % (Auto) 0.5 Immature Gran # (Auto) 0.0 Neut # 7.0 H Lymph # 1.9 [place] # 0.7 Eos # 0.0 Baso # 0.1 Puncture Site O2 Saturation ABG pH ABG pCO2 ABG pO2 ABG HCO3 ABG Total CO2 ABG Base Excess Jeovanny Test FiO2 % Sodium 139 Potassium 3.7 Chloride 105 Carbon Dioxide 26 Anion Gap 11.7 BUN 12 Creatinine 0.83 Estimated GFR (MDRD) 69.00 BUN/Creatinine Ratio 14.45 Glucose 107 Lactic Acid Calcium 9.7 Total Bilirubin 0.9 AST 55 H ALT 109 H Alkaline Phosphatase 133 Total Protein 6.8 Albumin 3.1 L Globulin 3.7 Albumin/Globulin Ratio 0.84 Procalcitonin Influenza A (Rapid) Negative by naat Influenza B (Rapid) Negative by naat 09/20/17 09/20/17 09/20/17 16:56 17:25 17:25 WBC RBC Hgb Hct MCV MCH MCHC RDW Coeff of Tanner Plt Count Immature Gran % (Auto) Neut % (Auto) Lymph % (Auto) [place] % (Auto) Eos % (Auto) Baso % (Auto) Immature Gran # (Auto) Neut # Lymph # [place] # Eos # Baso # Puncture Site Rr O2 Saturation 92.0 L ABG pH 7.483 H ABG pCO2 31.7 L ABG pO2 59.0 L* ABG HCO3 23.8 ABG Total CO2 25 ABG Base Excess 0 Jeovanny Test + FiO2 % 21.0 Sodium Potassium Chloride Carbon Dioxide Anion Gap BUN Creatinine Estimated GFR (MDRD) BUN/Creatinine Ratio Glucose Lactic Acid 8.9 Calcium Total Bilirubin AST ALT Alkaline Phosphatase Total Protein Albumin Globulin Albumin/Globulin Ratio Procalcitonin < 0.05 Influenza A (Rapid) Influenza B (Rapid) Orders Category Date Time Status ADMIT PATIENT INPATIENT .TO [facility] (MONITORED BED) ADMISSION 09/20/17 18: 26 Active ABG DRAW REQUEST Stat CARDIO 09/20/17 16:56 Completed EKG-(ED ONLY) Stat CARDIO 09/20/17 14:55 Completed NEBULIZER TREATMENT Stat CARDIO 09/20/17 15:21 Completed TELEMETRY MONITORING TELE CARE 09/20/17 18:27 Active ED APPLY O2 .ONCE EMERGENCY 09/20/17 18:23 Ordered ABG Stat LAB 09/20/17 16:56 Completed BLOOD CULTURE (ED ONLY) Stat LAB 09/20/17 17:25 Received CBC W/ AUTO DIFF Stat LAB 09/20/17 15:05 Completed CMP [COMPREHENSIVE METABOLIC PANEL] Stat LAB 09/20/17 15:05 Completed FLU A/B MOLECULAR Stat LAB 09/20/17 15:03 Completed LACTIC ACID Stat LAB 09/20/17 17:25 Completed MOLECULAR GROUP A STREP Stat LAB 09/20/17 15:03 Completed PROCALCITONIN Stat LAB 09/20/17 17:25 Completed SPUTUM CULTURE Stat LAB 09/20/17 15:58 Received Azithromycin Inj [Zithromax] 500 mg MEDS 09/20/17 18:28 Ordered 0.9 % Sodium Chloride [Sodium Chloride] 250 ml IV ONCE Ceftriaxone Sodium [Rocephin] MEDS 09/20/17 17:49 Discontinued 1 gm .ROUTE .STK-MED ONE Ceftriaxone Sodium [Rocephin] 1 gm MEDS 09/20/17 17:15 Discontinued 0.9 % Sodium Chloride [Sodium Chloride] 50 ml IV ONCE Ceftriaxone Sodium [Rocephin] 1 gm MEDS 09/20/17 17:50 Active 0.9 % Sodium Chloride [Sodium Chloride] 50 ml IV ONCE Hydrocortisone Sod Succ/Pf [Solu-Cortef 100 mg] MEDS 09/20/17 18:27 Stat 125 mg IVP ONCE STA Levalbuterol HCl [Xopenex 1.25 mg] MEDS 09/20/17 15:21 Discontinued 1 vial NEB ONCE STA CHEST, 2 VIEWS PA & LAT Stat RADS 09/20/17 14:55 Completed Medications Generic Name Dose Route Start Last Admin Trade Name Freq PRN Reason Stop Dose Admin Azithromycin 500 mg/ Sodium 250 mls @ 125 mls/hr 09/20/17 18:28 Chloride IV 09/20/17 20:27 ONCE STA Discontinued Medications Generic Name Dose Route Start Last Admin Trade Name Freq PRN Reason Stop Dose Admin Hydrocortisone Sodium Succinate 125 mg 09/20/17 18:27 Solu-Cortef 100 Mg IVP 09/20/17 18:28 ONCE STA Ceftriaxone Sodium 1 gm/ 50 mls @ 75 mls/hr 09/20/17 17:15 09/20/17 17:55 Sodium Chloride IV 09/20/17 17:54 75 mls/hr ONCE STA Administration Ceftriaxone Sodium 1 gm/ 50 mls @ 75 mls/hr 09/20/17 17:50 Sodium Chloride IV 09/20/17 18:29 ONCE STA Levalbuterol HCl 1 vial 09/20/17 15:21 09/20/17 15:43 Xopenex 1.25 Mg NEB 09/20/17 15:22 1 vial ONCE STA Administration Vital Signs: Temp Pulse Resp BP Pulse Ox 09/20/17 13:19 100.3 F H 99 H 20 183/84 H 93 L Departure - Departure Time of Disposition: 18:30 Disposition: ADMITTED INPATIENT Discharge Problem: Left lower lobe pneumonia Qualifiers: Pneumonia type: due to unspecified organism Qualified Code(s): J18.1 - Lobar pneumonia, unspecified organism Condition: Good Pt referred to PMD for follow-up: Yes (Dr Woods) IPMP verified?: No Allergies/Adverse Reactions: Allergies Sulfa (Sulfonamide Antibiotics) Adverse Reaction (Verified 09/20/17 13:28) Home Medications: Ambulatory Orders Diazepam [Valium] 5 mg PO BEDTIME 01/07/14 Gabapentin [Neurontin] 300 mg PO BID 01/07/14 Hydrocodone Bit/Acetaminophen [[place] 7.5-325] 7.5 mg PO QID 01/07/14 Omeprazole [Prilosec] 20 mg PO BIDAC 01/19/14 Buspirone HCl 30 mg PO BID 10/20/14 Sertraline HCl [Zoloft] 100 mg PO BEDTIME 10/20/14 Tramadol HCl [Ultram] 50 mg PO TID 10/20/14 Lisinopril [Zestril] 40 mg PO BID #60 tablet 10/23/14 Aspirin [Aspir 81] 81 mg PO DAILY 11/05/16 Colestipol HCl 1 gm PO TID 11/05/16 Zofran Odt 4 mg PO Q8H PRN 11/05/16 Albuterol Sulfate [Proair Hfa] 2 puff IH Q6H 09/20/17 Amlodipine Besylate [Norvasc] 5 mg PO DAILY 09/20/17 Carvedilol 3.125 mg PO DAILY 09/20/17 Furosemide 20 mg PO DAILY 09/20/17 Levalbuterol HCl [Xopenex] 1.25 mg IH Q6HR PRN 09/20/17 Potassium Chloride [Micro-K Cap] 10 meq PO DAILY 09/20/17 Sucralfate [Carafate] 1 gm PO QID 09/20/17 Transfer Form Completed: Yes Disposition Discussed With: Patient, Family
[2017-09-20] MEDS ORDERED: XOPENEX 1.25 MG NEB STA (15:21)
--- NOTE | 2017-09-20 16:33 | DI ---
EXAM: CHEST FRONTAL AND LATERAL VIEWS HISTORY: Chest congestion. COMPARISON: 08/10/2017 FINDINGS: Heart size remains within normal limits. There is at least mild aortic atherosclerosis. Chronic-appearing interstitial changes. There are scattered calcifications suggesting old granulomato us disease. Questionable subtle density in the left base. No clearly defined left hemidiaphragm. L ungs are otherwise unremarkable. No vascular congestion or pleural fluid. No pneumothorax. Scoliosi s is noted. Stabilization hardware over the lower cervical spine. IMPRESSION: Mild left base density could represent early pneumonia or atelectasis. Correlate clinically.
[2017-09-20] MEDS ORDERED: ROCEPHIN 1 GM in SODIUM CHLORIDE 50 ML IV STA ×2 (17:15→17:50)
[2017-09-20] MEDS ORDERED: ROCEPHIN ONE (17:49)
[2017-09-20] MEDS ORDERED: SOLU-CORTEF 100 MG IVP STA (18:27)
[2017-09-20] MEDS ORDERED: ZITHROMAX 500 MG in SODIUM CHLORIDE 250 ML IV STA (18:28)
[2017-09-20] MEDS ORDERED: SOLU-MEDROL 125 MG ONE (18:44)
[2017-09-20] MEDS ORDERED: SOLU-MEDROL 125 MG IVP STA (18:46)
[2017-09-20] MEDS ORDERED: ZITHROMAX PO STA (19:30)
[2017-09-20] MEDS ORDERED: ZITHROMAX ONE (19:32)
[2017-09-20] MEDS ORDERED: MICRO-K CAP PO PRN (20:14)
[2017-09-20] MEDS ORDERED: LASIX TAB PO PRN (20:14)
[2017-09-20] MEDS: SODIUM CHLORIDE 1,000 ML IV SCH (20:15)
[2017-09-20] MEDS ORDERED: ZITHROMAX 500 MG in SODIUM CHLORIDE 250 ML IV SCH (21:00)
[2017-09-20] MEDS ORDERED: NORCO 7.5-325 PO SCH ×3 (21:00→21:45)
[2017-09-20] MEDS ORDERED: NON-FORMULARY MEDICATION (Buspirone Hcl [Buspirone Hcl] 15 MG) PO SCH (21:00)
[2017-09-20] MEDS ORDERED: BUSPAR ONE (21:17)
[2017-09-20] MEDS: ZESTRIL PO SCH (21:22)
[2017-09-20] MEDS: CARAFATE PO SCH (21:22)
[2017-09-20] MEDS: NORVASC PO SCH (21:23)
[2017-09-20] MEDS: COLESTID PO SCH (21:23)
[2017-09-20] MEDS: VALIUM PO SCH (21:23)
[2017-09-20] MEDS: NEURONTIN PO SCH (21:23)
[2017-09-20] MEDS ORDERED: NORCO 7.5-325 ONE (21:48)
[2017-09-20 22:20] VITALS: BMI 25.9
[2017-09-20] MEDS: SOLU-CORTEF 250 MG IVP SCH (23:26)
[2017-09-20] MEDS: XOPENEX 1.25 MG NEB SCH (23:28)
[2017-09-21] MEDS: SODIUM CHLORIDE 1,000 ML IV SCH ×4 (03:17→19:25)
[2017-09-21] MEDS: XOPENEX 1.25 MG NEB SCH ×4 (05:14→23:50)
[2017-09-21] MEDS: SOLU-CORTEF 250 MG IVP SCH ×3 (05:34→17:11)
[2017-09-21] MEDS: PRILOSEC PO SCH ×2 (05:35→16:35)
[2017-09-21] MEDS: CARAFATE PO SCH ×4 (05:35→20:27)
[2017-09-21] MEDS: ASPIRIN EC PO SCH (08:53)
[2017-09-21] MEDS: BUSPAR PO SCH ×2 (08:53→20:28)
[2017-09-21] MEDS: COLESTID PO SCH ×3 (08:54→20:28)
[2017-09-21] MEDS: NEURONTIN PO SCH ×2 (08:55→20:28)
[2017-09-21] MEDS: NORCO 7.5-325 PO SCH ×3 (08:55→20:28)
[2017-09-21] MEDS: COREG PO SCH ×2 (08:55→16:34)
[2017-09-21] MEDS: NORVASC PO SCH ×2 (08:56→20:27)
[2017-09-21] MEDS: ZESTRIL PO SCH ×2 (08:57→20:28)
[2017-09-21] MEDS: ZOLOFT PO SCH (08:57)
[2017-09-21] MEDS: ROCEPHIN 1 GM in SODIUM CHLORIDE 50 ML IV SCH (08:58)
[2017-09-21] MEDS ORDERED: NON-FORMULARY MEDICATION (Sertraline Hcl [Zoloft] 150 MG) PO SCH (09:00)
[2017-09-21] MEDS ORDERED: ZITHROMAX PO SCH (09:00)
[2017-09-21] MEDS ORDERED: ZITHROMAX 500 MG in SODIUM CHLORIDE 250 ML IV SCH ×2 (09:00→21:00)
[2017-09-21] MEDS ORDERED: NORVASC PO SCH (09:00)
--- NOTE | 2017-09-21 09:05 | PCM.PROG ---
Attending Provider: ATTENDING PROVIDER: Dr. KAYCEE WOODS DATE OF SERVICE: 09/21/17 SUBJECTIVE: This 66 year old WHITE/ F was hospitalized 09/20/17 with acute bronchitis, pneumonitis. Influenza A and B negative at this time. REVIEW OF SYSTEMS: CONSTITUTIONAL: No night sweats. No fatigue, malaise, lethargy. No fever or chills. HEENT: Eyes: No visual changes. No eye pain. No eye discharge. ENT: No runny nose. No epistaxis. No sinus pain. No odynophagia. No congestion. RESPIRATORY: Cough and congestion. No hemoptysis. No shortness of breath. No PND. CARDIOVASCULAR: No angina symptoms. No CHF symptoms. No atypical chest pain for CAD. No palpitations. No orthopnea.. GASTROINTESTINAL: No abdominal pain. No nausea or vomiting. No diarrhea or constipation. No hematemesis. No hematochezia. GENITOURINARY: No urgency. No frequency. No dysuria. No hematuria. No obstructive symptoms. No discharge. No pain. No significant abnormal bleeding. MUSCULOSKELETAL: No musculoskeletal pain; no joint swelling. NEUROLOGICAL: Awake, alert, oriented to time, place and person. No headache. No neck pain. No syncope. No seizures. No dizziness. PSYCHIATRIC: Not anxious. No depression. No suicidal thoughts. No homicidal thoughts. SKIN: No rash. No lesions. No wounds. ENDOCRINE: No unexplained weight loss. No weight gain. HEMATOLOGIC/LYMPHATIC: No anemia. No purpura. No petechiae. No prolonged or excessive bleeding. No palpable lymph nodes. PHYSICAL EXAMINATION: GENERAL: The patient is awake, alert and oriented, lying in bed in no distress. VITAL SIGNS: Temperature 97.6 F, Pulse 85, Respiratory Rate 16, BP 159/93, Pulse Ox 99% HEENT: Head normocephalic, atraumatic. Eyes: Extraocular muscles are intact. Pupils are equal, round and reactive to light and accommodation. Ears: No lesions. Nose appeared normal. Throat: No exudate or erythema. NECK: Supple. No JVD, no carotid bruit. No lymphadenopathy or thyromegaly. LUNGS: Mild expiratory wheeze. Percussion note normal. Chest symmetrical. HEART: S1, S2, no S3. No murmurs. No cyanosis or clubbing. No ascites. Pulses: Dorsalis pedis and posterior tibial pulses +2 both sides. ABDOMEN: Soft. Non-tender. Bowel sounds active. No CVA tenderness. No mass felt. EXTREMITIES: No edema. Full range of motion of all extremities, equal. NEUROLOGIC: No focal deficit. Cranial nerves II through XII are grossly intact. No headache, no double vision or headache. SKIN: Warm and dry. Intact. Turgor-normal. LYMPHATIC: No palpable lymph nodes/no lymphedema. MUSCULOSKELETAL: Normal joints with no swelling. Muscle tone is normal. LAB REVIEW: 09/21/17 04:00 09/21/17 04:00 09/21/17 04:00: Sodium 140, Potassium 3.6, Chloride 109 H, Carbon Dioxide 22 L, Anion Gap 12.6, BUN 15, Creatinine 0.82, Estimated GFR (MDRD) 70.00, BUN/ Creatinine Ratio 18.29, Glucose 169 H D, Calcium 9.5 09/21/17 04:00: WBC 6.97, RBC 3.93 L, Hgb 12.0, Hct 34.9 L, MCV 88.8, MCH 30.5, MCHC 34.4, RDW Coeff of Tanner 12.7, Plt Count 183, Immature Gran % (Auto) 0.4, Neut % (Auto) 86.5, Lymph % (Auto) 11.3, [place] % (Auto) 1.7, Eos % (Auto) 0.0, Baso % (Auto) 0.1, Immature Gran # (Auto) 0.0, Neut # 6.0, Lymph # 0.8, [place] # 0.1 L, Eos # 0.0, Baso # 0.0 ASSESSMENT: 1. Acute pneumonitis, bronchitis 2. Chronic lung disease 3. Smoker 4. DJD spine PLAN: 1. Continue steroids, antibiotics and nebs 2. Counseling for smoking done 3. Regular diet 4. D/C neuro checks Plan and coordination of the patient's care discussed in the presence of Coping Machine Assembler and nurse. CONDITION: Stable SCRIBED BY: GUTIERREZ BRANTLEY Gas Desulfurizer scribed while in presence of service performed by Dr. KAYCEE WOODS on 09/21/17 ([id number])
[2017-09-21] MEDS: TORADOL IVP PRN (17:12)
[2017-09-21] MEDS: ZITHROMAX PO SCH (20:28)
[2017-09-21] MEDS: VALIUM PO SCH (20:29)
[2017-09-22] MEDS: SOLU-CORTEF 250 MG IVP SCH ×5 (00:08→23:04)
[2017-09-22] MEDS: SODIUM CHLORIDE 1,000 ML IV SCH ×2 (03:27→18:44)
[2017-09-22] MEDS: PRILOSEC PO SCH ×2 (05:43→16:41)
[2017-09-22] MEDS: CARAFATE PO SCH ×4 (05:43→20:26)
[2017-09-22] MEDS: XOPENEX 1.25 MG NEB SCH ×4 (05:50→21:14)
[2017-09-22] MEDS: BUSPAR PO SCH ×2 (08:36→20:25)
[2017-09-22] MEDS: ASPIRIN EC PO SCH (08:36)
[2017-09-22] MEDS: COLESTID PO SCH ×3 (08:37→20:25)
[2017-09-22] MEDS: COREG PO SCH ×2 (08:37→16:41)
[2017-09-22] MEDS: NEURONTIN PO SCH ×2 (08:38→20:25)
[2017-09-22] MEDS: NORCO 7.5-325 PO SCH ×3 (08:38→20:25)
[2017-09-22] MEDS: NORVASC PO SCH ×2 (08:38→20:25)
[2017-09-22] MEDS: ZESTRIL PO SCH ×2 (08:39→20:27)
[2017-09-22] MEDS: ZOLOFT PO SCH (08:39)
--- NOTE | 2017-09-22 09:18 | PCM.PROG ---
Attending Provider: ATTENDING PROVIDER: Dr. KAYCEE WOODS This patient is seen with Di Jaffe, Nurse Practitioner. DATE OF SERVICE: 09/22/17 SUBJECTIVE: This 67 year old WHITE/ F was hospitalized 09/20/17. The patient is lying in bed, alert. She is still coughing and is still wheezing. REVIEW OF SYSTEMS: CONSTITUTIONAL: No night sweats. No fatigue, malaise, lethargy. No fever or chills. HEENT: Eyes: No visual changes. No eye pain. No eye discharge. ENT: No runny nose. No epistaxis. No sinus pain. No odynophagia. No congestion. RESPIRATORY: Cough, wheeze and shortness of breath. no congestion. No hemoptysis. CARDIOVASCULAR: No angina symptoms. No CHF symptoms. No atypical chest pain for CAD. No palpitations. No orthopnea.. GASTROINTESTINAL: No abdominal pain. No nausea or vomiting. No diarrhea or constipation. No hematemesis. No hematochezia. GENITOURINARY: No urgency. No frequency. No dysuria. No hematuria. No obstructive symptoms. No discharge. No pain. No significant abnormal bleeding. MUSCULOSKELETAL: No musculoskeletal pain; no joint swelling. NEUROLOGICAL: Awake, alert, oriented to time, place and person. No headache. No neck pain. No syncope. No seizures. No dizziness. PSYCHIATRIC: Not anxious. No depression. No suicidal thoughts. No homicidal thoughts. SKIN: No rash. No lesions. No wounds. ENDOCRINE: No unexplained weight loss. No weight gain. HEMATOLOGIC/LYMPHATIC: No anemia. No purpura. No petechiae. No prolonged or excessive bleeding. No palpable lymph nodes. PHYSICAL EXAMINATION: GENERAL: The patient is awake, alert and oriented, lying in bed in no distress. VITAL SIGNS: Temperature 98.1 F, Pulse 84, Respiratory Rate 20, BP 138/70, Pulse Ox 92% HEENT: Head normocephalic, atraumatic. Eyes: Extraocular muscles are intact. Pupils are equal, round and reactive to light and accommodation. Ears: No lesions. Nose appeared normal. Throat: No exudate or erythema. NECK: Supple. No JVD, no carotid bruit. No lymphadenopathy or thyromegaly. LUNGS: Diminished breath sounds bilaterally with bilateral wheeze. Percussion note normal. Chest symmetrical. HEART: S1, S2, no S3. No murmurs. No cyanosis or clubbing. No ascites. Pulses: Dorsalis pedis and posterior tibial pulses +1 to +2 both sides. ABDOMEN: Soft. Non-tender. Bowel sounds active. No CVA tenderness. No mass felt. EXTREMITIES: No edema. Full range of motion of all extremities, equal. NEUROLOGIC: No focal deficit. Cranial nerves II through XII are grossly intact. No headache, no double vision or headache. SKIN: Not dry. Intact. Turgor-normal. LYMPHATIC: No palpable lymph nodes/no lymphedema. MUSCULOSKELETAL: Normal joints with no swelling. Muscle tone is normal. LAB REVIEW: 09/22/17 04:30 09/22/17 04:30 09/22/17 04:30: Sodium 141, Potassium 3.6, Chloride 114 H, Carbon Dioxide 21 L, Anion Gap 9.6, BUN 20 H, Creatinine 0.80, Estimated GFR (MDRD) 72.00, BUN/ Creatinine Ratio 25.00, Glucose 129 H, Calcium 9.1 09/22/17 04:30: WBC 13.68 H D, RBC 3.43 L, Hgb 10.4 L, Hct 30.9 L, MCV 90.1, MCH 30.3, MCHC 33.7, RDW Coeff of Tanner 13.1, Plt Count 192, Immature Gran % (Auto ) 0.5, Neut % (Auto) 89.9, Lymph % (Auto) 7.2 L, [place] % (Auto) 2.3, Eos % (Auto ) 0.0, Baso % (Auto) 0.1, Immature Gran # (Auto) 0.1, Neut # 12.3 H, Lymph # 1.0 , [place] # 0.3 L, Eos # 0.0, Baso # 0.0 ASSESSMENT: 1. Acute pneumonitis, bronchitis 2. Chronic lung disease 3. Smoker 4. DJD spine PLAN: 1. D/C IV fluids 2. Add Pulmicort neb b.i.d. Plan and coordination of the patient's care discussed in the presence of Underwriting Support Manager and nurse. CONDITION: Stable SCRIBED BY: GUTIERREZ BRANTLEY Astrochemist scribed while in presence of service performed by Dr. Woods/Di Jaffe APRN on 09/22/17 ([id number])
[2017-09-22] MEDS: ROCEPHIN 1 GM in SODIUM CHLORIDE 50 ML IV SCH (10:22)
[2017-09-22] MEDS: TORADOL IVP PRN (11:39)
[2017-09-22] MEDS: PULMICORT 0.5 MG/2 ML NEB SCH (16:35)
[2017-09-22] MEDS: VALIUM PO SCH (20:25)
[2017-09-22] MEDS: ZITHROMAX PO SCH (20:25)
[2017-09-23] MEDS: XOPENEX 1.25 MG NEB SCH ×4 (04:50→23:40)
[2017-09-23] MEDS: PULMICORT 0.5 MG/2 ML NEB SCH ×2 (04:50→16:50)
[2017-09-23] MEDS: CARAFATE PO SCH ×4 (05:34→20:40)
[2017-09-23] MEDS: PRILOSEC PO SCH ×2 (05:34→17:25)
[2017-09-23] MEDS: SOLU-CORTEF 250 MG IVP SCH ×3 (05:34→20:39)
[2017-09-23] MEDS: ROCEPHIN 1 GM in SODIUM CHLORIDE 50 ML IV SCH (08:45)
[2017-09-23] MEDS: ZOLOFT PO SCH (08:47)
[2017-09-23] MEDS: COREG PO SCH ×2 (08:48→17:26)
[2017-09-23] MEDS: NEURONTIN PO SCH ×2 (08:48→20:41)
[2017-09-23] MEDS: ZESTRIL PO SCH ×2 (08:48→20:41)
[2017-09-23] MEDS: ASPIRIN EC PO SCH (08:48)
[2017-09-23] MEDS: NORCO 7.5-325 PO SCH ×3 (08:48→20:41)
[2017-09-23] MEDS: NORVASC PO SCH ×2 (08:48→20:40)
[2017-09-23] MEDS: BUSPAR PO SCH ×2 (08:48→20:40)
[2017-09-23] MEDS: COLESTID PO SCH ×3 (08:49→20:41)
[2017-09-23] MEDS: NICODERM 21 MG TD SCH (08:51)
--- NOTE | 2017-09-23 10:59 | PCM.PROG ---
Attending Provider: ATTENDING PROVIDER: Dr. KAYCEE WOODS This patient is seen with Di Jaffe, Nurse Practitioner. DATE OF SERVICE: 09/23/17 SUBJECTIVE: This 67 year old WHITE/ F was hospitalized 09/20/17. The patient is sitting in bed, alert, still coughing. Shortness of breath somewhat improved. The patient is still wheezing. REVIEW OF SYSTEMS: CONSTITUTIONAL: No night sweats. No fatigue, malaise, lethargy. No fever or chills. HEENT: Eyes: No visual changes. No eye pain. No eye discharge. ENT: No runny nose. No epistaxis. No sinus pain. No odynophagia. No congestion. RESPIRATORY: Cough and wheeze. No hemoptysis. No shortness of breath. CARDIOVASCULAR: No angina symptoms. No CHF symptoms. No atypical chest pain for CAD. No palpitations. No orthopnea.. GASTROINTESTINAL: No abdominal pain. No nausea or vomiting. No diarrhea or constipation. No hematemesis. No hematochezia. GENITOURINARY: No urgency. No frequency. No dysuria. No hematuria. No obstructive symptoms. No discharge. No pain. No significant abnormal bleeding. MUSCULOSKELETAL: No musculoskeletal pain; no joint swelling. NEUROLOGICAL: Awake, alert, oriented to time, place and person. No headache. No neck pain. No syncope. No seizures. No dizziness. PSYCHIATRIC: Not anxious. No depression. No suicidal thoughts. No homicidal thoughts. SKIN: No rash. No lesions. No wounds. ENDOCRINE: No unexplained weight loss. No weight gain. HEMATOLOGIC/LYMPHATIC: No anemia. No purpura. No petechiae. No prolonged or excessive bleeding. No palpable lymph nodes. PHYSICAL EXAMINATION: GENERAL: The patient is awake, alert and oriented, lying in bed in no distress. VITAL SIGNS: Temperature 97.5 F, Pulse 80, Respiratory Rate 16, BP 127/75, Pulse Ox 97% HEENT: Head normocephalic, atraumatic. Eyes: Extraocular muscles are intact. Pupils are equal, round and reactive to light and accommodation. Ears: No lesions. Nose appeared normal. Throat: No exudate or erythema. NECK: Supple. No JVD, no carotid bruit. No lymphadenopathy or thyromegaly. LUNGS: Diminished breath sounds bilaterally with bilateral inspiratory and expiratory wheeze. Percussion note normal. Chest symmetrical. HEART: S1, S2, no S3. No murmurs. No cyanosis or clubbing. No ascites. Pulses: Dorsalis pedis and posterior tibial pulses +1 to +2 both sides. ABDOMEN: Soft. Non-tender. Bowel sounds active. No CVA tenderness. No mass felt. EXTREMITIES: No edema. Full range of motion of all extremities, equal. NEUROLOGIC: No focal deficit. Cranial nerves II through XII are grossly intact. No headache, no double vision or headache. SKIN: Not dry. Intact. Turgor-normal. LYMPHATIC: No palpable lymph nodes/no lymphedema. MUSCULOSKELETAL: Normal joints with no swelling. Muscle tone is normal. LAB REVIEW: 09/23/17 04:45 09/23/17 04:45 09/23/17 04:45: Sodium 143, Potassium 3.7, Chloride 113 H, Carbon Dioxide 21 L, Anion Gap 12.7, BUN 24 H, Creatinine 0.85, Estimated GFR (MDRD) 67.00, BUN/ Creatinine Ratio 28.23, Glucose 109, Calcium 9.1 09/23/17 04:45: WBC 9.97, RBC 3.45 L, Hgb 10.4 L, Hct 31.1 L, MCV 90.1, MCH 30.1 , MCHC 33.4, RDW Coeff of Tanner 12.9, Plt Count 212, Immature Gran % (Auto) 0.6, Neut % (Auto) 85.2, Lymph % (Auto) 11.9, [place] % (Auto) 2.2, Eos % (Auto) 0.0, Baso % (Auto) 0.1, Immature Gran # (Auto) 0.1, Neut # 8.5 H, Lymph # 1.2, [place] # 0.2 L, Eos # 0.0, Baso # 0.0 ASSESSMENT: 1. Acute pneumonitis, bronchitis 2. Chronic lung disease 3. Smoker 4. DJD spine PLAN: 1. Decrease steroids q.8hr 2. Nicoderm patch Plan and coordination of the patient's care discussed in the presence of Ski Patrol Officer and nurse. CONDITION: Stable SCRIBED BY: GUTIERREZ BRANTLEY Nuclear Physicist scribed while in presence of service performed by Dr. Woods/Di Jaffe APRN on 09/23/17 ([id number])
[2017-09-23] MEDS: VALIUM PO SCH (20:41)
[2017-09-24] MEDS: XOPENEX 1.25 MG NEB SCH ×4 (05:10→23:10)
[2017-09-24] MEDS: PULMICORT 0.5 MG/2 ML NEB SCH ×2 (05:10→18:01)
[2017-09-24] MEDS: CARAFATE PO SCH ×4 (05:38→21:27)
[2017-09-24] MEDS: SOLU-CORTEF 250 MG IVP SCH ×3 (05:38→19:59)
[2017-09-24] MEDS: PRILOSEC PO SCH ×2 (05:38→16:43)
[2017-09-24] MEDS: TORADOL IVP PRN (07:07)
[2017-09-24] MEDS: ROCEPHIN 1 GM in SODIUM CHLORIDE 50 ML IV SCH (08:53)
[2017-09-24] MEDS: ASPIRIN EC PO SCH (08:57)
[2017-09-24] MEDS: BUSPAR PO SCH ×2 (08:57→21:27)
[2017-09-24] MEDS: COLESTID PO SCH ×3 (08:58→21:28)
[2017-09-24] MEDS: COREG PO SCH ×2 (08:59→16:43)
[2017-09-24] MEDS: NEURONTIN PO SCH ×2 (08:59→21:27)
[2017-09-24] MEDS: NICODERM 21 MG TD SCH (09:00)
[2017-09-24] MEDS: NORCO 7.5-325 PO SCH ×3 (09:01→21:28)
[2017-09-24] MEDS: ZESTRIL PO SCH ×2 (09:02→21:28)
[2017-09-24] MEDS: NORVASC PO SCH ×2 (09:02→21:27)
[2017-09-24] MEDS: ZOLOFT PO SCH (09:02)
[2017-09-24] MEDS: VALIUM PO SCH (21:27)
[2017-09-25] MEDS: XOPENEX 1.25 MG NEB SCH ×4 (05:06→23:02)
[2017-09-25] MEDS: PULMICORT 0.5 MG/2 ML NEB SCH ×2 (05:06→16:52)
[2017-09-25] MEDS: SOLU-CORTEF 250 MG IVP SCH (05:47)
[2017-09-25] MEDS: PRILOSEC PO SCH ×2 (05:48→17:20)
[2017-09-25] MEDS: CARAFATE PO SCH ×4 (05:48→21:10)
[2017-09-25] MEDS: ROCEPHIN 1 GM in SODIUM CHLORIDE 50 ML IV SCH (08:33)
[2017-09-25] MEDS: NICODERM 21 MG TD SCH (08:34)
[2017-09-25] MEDS: ZESTRIL PO SCH ×2 (08:34→21:10)
[2017-09-25] MEDS: ZOLOFT PO SCH (08:34)
[2017-09-25] MEDS: BUSPAR PO SCH ×2 (08:34→21:11)
[2017-09-25] MEDS: COREG PO SCH ×2 (08:35→17:20)
[2017-09-25] MEDS: ASPIRIN EC PO SCH (08:35)
[2017-09-25] MEDS: NEURONTIN PO SCH ×2 (08:35→21:10)
[2017-09-25] MEDS: COLESTID PO SCH ×3 (08:35→21:10)
[2017-09-25] MEDS: NORVASC PO SCH ×2 (08:35→21:10)
[2017-09-25] MEDS: NORCO 7.5-325 PO SCH ×3 (08:36→21:10)
[2017-09-25] MEDS ORDERED: K-DUR PO SCH (11:00)
[2017-09-25] MEDS: K-DUR PO SCH (17:20)
[2017-09-25] MEDS: VALIUM PO SCH (21:11)
[2017-09-26] MEDS: PULMICORT 0.5 MG/2 ML NEB SCH (05:15)
[2017-09-26] MEDS: XOPENEX 1.25 MG NEB SCH (05:15)
[2017-09-26] MEDS: CARAFATE PO SCH ×2 (05:31→10:34)
[2017-09-26] MEDS: PRILOSEC PO SCH (05:31)
[2017-09-26 05:50] VITALS: BP 136/80; TEMP 98
[2017-09-26] MEDS: NICODERM 21 MG TD SCH (08:02)
[2017-09-26] MEDS: ASPIRIN EC PO SCH (08:05)
[2017-09-26] MEDS: COLESTID PO SCH (08:06)
[2017-09-26] MEDS: BUSPAR PO SCH (08:06)
[2017-09-26] MEDS: K-DUR PO SCH (08:07)
[2017-09-26] MEDS: COREG PO SCH (08:07)
[2017-09-26] MEDS: NORVASC PO SCH (08:08)
[2017-09-26] MEDS: ZESTRIL PO SCH (08:08)
[2017-09-26] MEDS: NORCO 7.5-325 PO SCH (08:08)
[2017-09-26] MEDS: NEURONTIN PO SCH (08:08)
[2017-09-26] MEDS: ZOLOFT PO SCH (08:09)
--- NOTE | 2017-09-26 10:19 | PCM.PROG ---
Attending Provider: ATTENDING PROVIDER: Dr. KAYCEE WOODS This patient is seen with Di Jaffe, Nurse Practitioner. DATE OF SERVICE: 09/26/17 SUBJECTIVE: This 67 year old WHITE/ F was hospitalized 09/20/17. The patient is sitting in bed, alert. Breathing better and wheezing improved. The patient is ready to go home today. REVIEW OF SYSTEMS: CONSTITUTIONAL: No night sweats. No fatigue, malaise, lethargy. No fever or chills. HEENT: Eyes: No visual changes. No eye pain. No eye discharge. ENT: No runny nose. No epistaxis. No sinus pain. No odynophagia. No congestion. RESPIRATORY: Cough. No congestion. No hemoptysis. No shortness of breath. CARDIOVASCULAR: No angina symptoms. No CHF symptoms. No atypical chest pain for CAD. No palpitations. No orthopnea.. GASTROINTESTINAL: No abdominal pain. No nausea or vomiting. No diarrhea or constipation. No hematemesis. No hematochezia. GENITOURINARY: No urgency. No frequency. No dysuria. No hematuria. No obstructive symptoms. No discharge. No pain. No significant abnormal bleeding. MUSCULOSKELETAL: No musculoskeletal pain; no joint swelling. NEUROLOGICAL: Awake, alert, oriented to time, place and person. No headache. No neck pain. No syncope. No seizures. No dizziness. PSYCHIATRIC: Not anxious. No depression. No suicidal thoughts. No homicidal thoughts. SKIN: No rash. No lesions. No wounds. ENDOCRINE: No unexplained weight loss. No weight gain. HEMATOLOGIC/LYMPHATIC: No anemia. No purpura. No petechiae. No prolonged or excessive bleeding. No palpable lymph nodes. PHYSICAL EXAMINATION: GENERAL: The patient is awake, alert and oriented, sitting in bed in no distress. VITAL SIGNS: Temperature 98.0 F, Pulse 64, Respiratory Rate 16, BP 136/80, Pulse Ox 97% HEENT: Head normocephalic, atraumatic. Eyes: Extraocular muscles are intact. Pupils are equal, round and reactive to light and accommodation. Ears: No lesions. Nose appeared normal. Throat: No exudate or erythema. NECK: Supple. No JVD, no carotid bruit. No lymphadenopathy or thyromegaly. LUNGS: Mild rhonchi bilaterally. Clear to auscultation. Percussion note normal. Chest symmetrical. HEART: S1, S2, no S3. No murmurs. No cyanosis or clubbing. No ascites. Pulses: Dorsalis pedis and posterior tibial pulses +1 to +2 both sides. ABDOMEN: Soft. Non-tender. Bowel sounds active. No CVA tenderness. No mass felt. EXTREMITIES: No edema. Full range of motion of all extremities, equal. NEUROLOGIC: No focal deficit. Cranial nerves II through XII are grossly intact. No headache, no double vision or headache. SKIN: Not dry. Intact. Turgor-normal. LYMPHATIC: No palpable lymph nodes/no lymphedema. MUSCULOSKELETAL: Normal joints with no swelling. Muscle tone is normal. LAB REVIEW: 09/26/17 05:00 09/26/17 05:00 09/26/17 05:00: Sodium 143, Potassium 3.2 L, Chloride 106, Carbon Dioxide 29, Anion Gap 11.2, BUN 18, Creatinine 0.78, Estimated GFR (MDRD) 74.00, BUN/ Creatinine Ratio 23.07, Glucose 79 L, Calcium 8.8, Total Bilirubin 0.3, AST 9 L , ALT 19, Alkaline Phosphatase 80, Total Protein 5.6 L, Albumin 2.7 L, Globulin 2.9, Albumin/Globulin Ratio 0.93 09/26/17 05:00: WBC 7.75, RBC 3.93 L, Hgb 12.1, Hct 34.4 L, MCV 87.5, MCH 30.8, MCHC 35.2, RDW Coeff of [place]anner 12.8, Plt Count 264, Immature Gran % (Auto) 1.2, Neut % (Auto) 52.9, Lymph % (Auto) 37.5, [place] % (Auto) 6.8, Eos % (Auto) 1.3, Baso % (Auto) 0.3, Immature Gran # (Auto) 0.1, Neut # 4.1, Lymph # 2.9, [place] # 0.5, Eos # 0.1, Baso # 0.0 09/25/17 08:54: Puncture Site Rr, O2 Saturation 96.0, ABG pH 7.462 H, ABG pCO2 34.9 L, ABG pO2 79.0 L, ABG HCO3 24.9, ABG Total CO2 26, ABG Base Excess 1, Jeovanny Test +, FiO2 % 21.0 ASSESSMENT: 1. Acute pneumonitis, bronchitis 2. Chronic lung disease 3. Smoker 4. DJD spine PLAN: 1. Xopenex p.r.n. 2. Potassium 40 mg p.o. b.i.d. times 5 days 3. Omnicef 300 mg b.i.d. times 5 days 4. Prednisone 10 b.i.d. times 5 da6s 5. Followup next week Plan and coordination of the patient's care discussed in the presence of Cattle Broker and nurse. CONDITION: Stable EDUCATION: Educated carried out on smoking cessation. Discussed with the patient the use of Nicoderm patches. SCRIBED BY: GUTIERREZ BRANTLEY Gear Tooth Lapping Machine Operator scribed while in presence of service performed by Dr. Woods/Di Jaffe APRN on 09/26/17 ([id number])
--- NOTE | 2017-09-26 10:36 | CM.DICTOOL ---
ADMISSION: 09/20/17 18:34 DISCHARGE: 2017 DATE OF SERVICE: 09/26/17 FINAL DIAGNOSIS PNEUMONIA, LEFT LOWER LOBE COPD HYPERTENSION CHRONIC KIDNEY DISEASE ASHD NEUROPATHY GERD ANXIETY/DEPRESSION HEPATITIS B HYSTERECTOMY APPENDECTOMY CHOLECYSTECTOMY RECTAL FISTULA CERVICAL SPINE SURGERY HEART CATH, 2016 LAST VITALS Temp Pulse Resp BP Pulse Ox 98.0 F 64 16 136/80 97 09/26/17 05:49 09/26/17 05:49 09/26/17 05:49 09/26/17 05:49 09/26/17 05:49 ACTIVE HOME MEDICATIONS Acetaminophen/Hydrocodone Bitart ([place] 7.5-325) 1 tab PO TID [facility] Last Admin: 09/26/17 08:08 Dose: 1 tab Amlodipine Besylate (Norvasc) 5 mg PO BID [facility] Last Admin: 09/26/17 08:08 Dose: 5 mg (Medication increased to BID) Aspirin (Aspirin Ec) 81 mg PO DAILYWM [facility] Last Admin: 09/26/17 08:05 Dose: 81 mg Buspirone HCl (Buspar) 30 mg PO BID [facility] Last Admin: 09/26/17 08:06 Dose: 15 mg Carvedilol (Coreg) 3.125 mg PO BIDWM [facility] Last Admin: 09/26/17 08:07 Dose: 3.125 mg Colestipol HCl (Colestid) 1 gm PO TID [facility] Last Admin: 09/26/17 08:06 Dose: 1 gm Diazepam (Valium) 5 mg PO BEDTIME [facility] Last Admin: 09/25/17 21:11 Dose: 5 mg Gabapentin (Neurontin) 300 mg PO BID [facility] Last Admin: 09/26/17 08:08 Dose: 300 mg Levalbuterol HCl (Xopenex 1.25 Mg) 1 vial NEB RTQ6H [facility] Last Admin: 09/26/17 05:15 Dose: 1 vial Lisinopril (Zestril) 40 mg PO BID [facility] Last Admin: 09/26/17 08:08 Dose: 40 mg Furosemide (Lasix) 20 mg PO PRN 2 times a week for leg swelling Last Admin: Potassium Chloride (Micro K) 10 meq PO 2 times a week with lasix Last Admin: Omeprazole (Prilosec) 40 mg PO BIDAC [facility] Last Admin: 09/26/17 05:31 Dose: 40 mg Sertraline HCl (Zoloft) 100 mg PO DAILY [facility] Last Admin: 09/26/17 08:09 Dose: 150 mg Sucralfate (Carafate) 1 gm PO ACHS [facility] Last Admin: 09/26/17 05:31 Dose: 1 gm ALLERGIES Sulfa (Sulfonamide Antibiotics) Adverse Reaction (Verified 09/20/17 13:28) NEW PRESCRIPTIONS: OMNICEF 300 MG BID FOR 5 DAYS PREDNISONE 10 MG BID FOR 5 DAYS K-DUR 40 MEQ BID FOR 5 DAYS SMOKING: STOP SMOKING DISEASE SPECIFIC EDUCATION: SMOKING CESSATION STEROID ADMINISTRATION AND RISK OF GI IRRITATION, BONE DEMINERALIZATION TEMPORARY POTASSIUM INCREASED DOSE NEBULIZER TREATMENTS APPOINTMENT LAB REVIEW: 09/26/17 05:00 09/26/17 05:00 09/26/17 05:00: Sodium 143, Potassium 3.2 L, Chloride 106, Carbon Dioxide 29, Anion Gap 11.2, BUN 18, Creatinine 0.78, Estimated GFR (MDRD) 74.00, BUN/ Creatinine Ratio 23.07, Glucose 79 L, Calcium 8.8, Total Bilirubin 0.3, AST 9 L , ALT 19, Alkaline Phosphatase 80, Total Protein 5.6 L, Albumin 2.7 L, Globulin 2.9, Albumin/Globulin Ratio 0.93 09/26/17 05:00: WBC 7.75, RBC 3.93 L, Hgb 12.1, Hct 34.4 L, MCV 87.5, MCH 30.8, MCHC 35.2, RDW Coeff of Tanner 12.8, Plt Count 264, Immature Gran % (Auto) 1.2, Neut % (Auto) 52.9, Lymph % (Auto) 37.5, [place] % (Auto) 6.8, Eos % (Auto) 1.3, Baso % (Auto) 0.3, Immature Gran # (Auto) 0.1, Neut # 4.1, Lymph # 2.9, [place] # 0.5, Eos # 0.1, Baso # 0.0 PLAN: DISCHARGE HOME DIET: HEART HEALTHY DIET ACTIVITY: GRADUALLY RESUME TOLERATED MEDICATION CHANGE: INCREASE AMLODIPINE (NORVASC) TO 5 MG BID TEMPORARY INCREASE IN POTASSIUM DOSE TO 40 MEQ BID FOR 5 DAYS, THEN RESUME POTASSIUM 10 MEQ TWO TIMES WEEKLY PRN WITH LASIX DOSE FOR LEG SWELLING CONTINUE MEDICATIONS LISTED ON NURSING DISCHARGE INFORMATION SHEET CONTINUE TO USE OXYGEN AT 2 LITERS BY NASAL CANNULA AT BEDTIME CONTINUE USE OF XOPENEX NEBULIZER TREATMENTS AT LEAST 3 TIMES DAILY AN APPOINTMENT IS SCHEDULED WITH DR. WOODS/MADDIE FERREIRA APRN ON AT 10:15 AM PLEASE BRING ALL MEDICATIONS WITH YOU TO YOUR APPOINTMENT MS. ELENA IS ALERT AND ORIENTED X 3. SHE IS INDEPENDENT WITH ACTIVITIES OF DAILY LIVING. SHE IS AMBULATORY WITHOUT USE OF OXYGEN OR ASSISTIVE DEVICE. SHE IS ENCOURAGED TO STOP SMOKING AND HAS REFRAINED FROM SMOKING DURING HER HOSPITALIZATION. MS ELENA REPORTS SHE HAS ORDERED NICOTINE PATCHES TO BE DELIVERED TO HER HOME AND WILL START USING THEM TO AID IN NOT SMOKING. HOME DME AVAILABLE CONSISTS OF OXYGEN FOR NIGHTTIME USE AND A NEBULIZER. NO NAUSEA OR ABDOMINAL PAIN REPORTED BY THE PATIENT. MEAL INTAKES ARE 100%. SHE DENIES SHORTNESS OF AIR AT REST OR WITH EXERTION. OXYGEN SATURATION WAS 97% ON ROOM AIR. SKIN IS INTACT AND FREE OF DECUBITUS ULCERS, RASHES OR IRRITATION. AN AREA OF ECCHYMOSIS IS NOTED TO THE RIGHT ANTECUBITAL. KAYCEE WOODS MD MADDIE FERREIRA APRN
--- NOTE | 2017-09-27 07:00 | HP ---
DATE OF SERVICE: 09/20/17 HISTORY OF PRESENT ILLNESS: Coughing times two days at home with low grade fever. She became more short of breath and was brought to the ER by family. PAST MEDICAL HISTORY: COPD Hypertension GERD Anxiety Depression Mitral valve prolapse PAST SURGICAL HISTORY: Hysterectomy Appendectomy Gallbladder Neck surgery Rectal fistula REVIEW OF SYSTEMS: CONSTITUTIONAL: No night sweats. No fatigue, malaise, lethargy. No chills. HEENT: Eyes: No visual changes. No eye pain. No eye discharge. ENT: No runny nose. No epistaxis. No sinus pain. No sore throat. No odynophagia. No ear pain. No congestion. RESPIRATORY: Cough and congestion. No hemoptysis. No shortness of breath. CARDIOVASCULAR: No angina symptoms. No CHF symptoms. No atypical chest pain for CAD. No palpitations. No orthopnea. GASTROINTESTINAL: No abdominal pain. No nausea or vomiting. No diarrhea or constipation. No hematemesis. No hematochezia. GENITOURINARY: No urgency. No frequency. No dysuria. No hematuria. No obstructive symptoms. No discharge. No pain. No significant abnormal bleeding. MUSCULOSKELETAL: No musculoskeletal pain. No joint swelling. No arthritis. NEUROLOGICAL: No headache. No neck pain. No syncope. No seizures. No dizziness. PSYCHIATRIC: Not anxious. No depression. No suicidal thoughts. No homicidal thoughts. SKIN: No rash. No lesions. No wounds. ENDOCRINE: No unexplained weight loss. No weight gain. HEMATOLOGIC/LYMPHATIC: No anemia. No purpura. No petechiae. No prolonged or excessive bleeding. No palpable lymph nodes. PERSONAL/FAMILY/SOCIAL HISTORY: . Alcohol use - yes. Tobacco use: yes. Family History: Heart problems. MEDICATIONS: (HOME) Valium 5 mg p.o. bedtime [place] 7.5 mg p.o. q.i.d. Neurontin 300 mg p.o. b.i.d. Prilosec 20 mg p.o. b.i.d. a.c. Buspirone 30 mg p.o. b.i.d. Zoloft 100 mg p.o. bedtime Zestril 40 mg p.o. b.i.d. Aspirin 81 mg p.o. daily Colestipol 1 gm p.o. t.i.d. Carafate 1 gm p.o. q.i.d. ProAir HFA two puff IH q.6hr Carvedilol 3.125 mg p.o. daily Norvasc 5 mg p.o. daily Xopenex 1.25 mg IH q.6hr p.r.n. Micro-K 10 mEq p.o. daily p.r.n. Lasix 20 mg p.o. daily p.r.n. ALLERGIES: SULFA PHYSICAL EXAMINATION: GENERAL: The patient is lying in bed in no distress. VITAL SIGNS: Temperature 100.3, pulse 99, respiratory rate 20, 02 saturation 93 %/2L 02. Height 5'4". Weight 165 lbs. HEENT: Head normocephalic, atraumatic. Eyes: Extraocular muscles are intact. Pupils are equal, round and reactive to light and accommodation. Ears: No lesions. Nose appeared normal. Throat: No exudate or erythema. NECK: Supple. No JVD, no carotid bruit. No lymphadenopathy or thyromegaly. LUNGS: Diminished breath sounds. Clear to auscultation. Percussion note normal. Chest symmetrical. HEART: S1, S2, no S3. No murmurs. No cyanosis or clubbing. No ascites. Pulses: Dorsalis pedis and posterior tibial pulses +1 to +2 both sides. ABDOMEN: Soft. Nontender. Bowel sounds active. No CVA tenderness. No mass felt. EXTREMITIES: No edema. Full range of motion of all extremities, equal. NEUROLOGIC: No focal deficit. Cranial nerves II through XII are grossly intact. No headache, no double vision or headache. SKIN: Not dry. Intact. Turgor - normal. LYMPHATIC: No palpable lymph nodes/no lymphedema. MUSCULOSKELETAL: Normal joints with no swelling. Muscle tone is normal. LABS: On 09/20/17, the patient's chest x-ray showed possibility of early pneumonia, atelectasis. ABG showed p02 of 59, pc02 31, pH 7.48 with 92% saturation on room air.Hgb 12, hct 34, WBC 6,900 normal differential. Lactic acid 8.9 normal, procalcitonin normal. ASSESSMENT: 1. PNEUMONIA 2. SHORT OF BREATH 3. FEVER PLAN: 1. Admit 2. Rocephin 1 gm daily 3. Telemetry 4. Solu-Cortef 125 q.8hr 5. Xopenex TIME SPENT: More than 70 minutes. MTDD
--- NOTE | 2017-09-27 10:01 | PN ---
DATE OF SERVICE: 09/22/17 SUBJECTIVE: 67-year-old white female hospitalized with acute bronchitis/pneumonitis. The patient was somewhat confused initially. Her hypoxemia has resolved. Lungs decreased breath sounds with less wheezing. She is a heavy smoker. Counseling for smoking done. Vitals are stable with temperature 98.1, pulse 80, respiratory rate 20, BP 138/70, pulse ox 92%. The patient is stable. The patient was seen and examined with nurse practitioner. TIME SPENT: More than 30 minutes. Plan and coordination of the patient's care discussed in the presence of nurse. TIMMY
--- NOTE | 2017-09-27 10:22 | PN ---
DATE OF SERVICE: 09/23/17 SUBJECTIVE: This patient was hospitalized with confusion, acute bronchitis/pneumonitis. The patient's condition is slowly improving. On physical exam the patient has bilateral wheeze, mostly expiratory. The patient needs to be on antibiotics, steroids and nebs treatment. Condition improving. The patient is seen and examined with nurse practitioner. TIME SPENT: More than 30 minutes. Plan and coordination of the patient's care discussed in the presence of nurse. TIMMY
--- NOTE | 2017-09-27 10:27 | PN ---
DATE OF SERVICE: 09/24/17 SUBJECTIVE: 67-year-old white female hospitalized with acute bronchitis/pneumonitis and change in mental status. The patient's condition has improved. REVIEW OF SYSTEMS: CONSTITUTIONAL: No night sweats. No fatigue, malaise, lethargy. No fever or chills. HEENT: Eyes: No visual changes. No eye pain. No eye discharge. ENT: No runny nose. No epistaxis. No sinus pain. No sore throat. No odynophagia. No congestion. RESPIRATORY: Cough and congestion, mild. No hemoptysis. No shortness of breath. CARDIOVASCULAR: No angina symptoms. No CHF symptoms. No atypical chest pain for CAD. No palpitations. No orthopnea. GASTROINTESTINAL: Appetite is improving. No abdominal pain. No nausea or vomiting. No diarrhea or constipation. No hematemesis. No hematochezia. GENITOURINARY: No urgency. No frequency. No dysuria. No hematuria. No obstructive symptoms. No discharge. No pain. No significant abnormal bleeding. MUSCULOSKELETAL: No musculoskeletal pain; no joint swelling. NEUROLOGICAL: No confusion. No headache. No neck pain. No syncope. No seizures. No dizziness. PSYCHIATRIC: Not anxious. No depression. No suicidal thoughts. No homicidal thoughts. SKIN: No rash. No lesions. No wounds. ENDOCRINE: No unexplained weight loss. No weight gain. HEMATOLOGIC/LYMPHATIC: No anemia. No purpura. No petechiae. No prolonged or excessive bleeding. No palpable lymph nodes. PHYSICAL EXAMINATION: GENERAL: The patient is oriented to time, place and person. VITAL SIGNS: Temperature 98, pulse 80, respiratory rate 14, BP 148/60, pulse ox 98%. HEENT: Head normocephalic, atraumatic. Eyes: Extraocular muscles are intact. Pupils are equal, round and reactive to light and accommodation. Ears: No lesions. Nose appeared normal. Throat: No exudate or erythema. NECK: Supple. No JVD, no carotid bruit. No lymphadenopathy or thyromegaly. LUNGS: Decreased breath sounds but clear to auscultation. Percussion note normal. Chest symmetrical. HEART: S1, S2, no S3. No murmurs. No cyanosis or clubbing. No ascites. Pulses: Dorsalis pedis and posterior tibial pulses +1 to +2 both sides. ABDOMEN: Soft. Nontender. Bowel sounds active. No CVA tenderness. No mass felt. EXTREMITIES: No edema. Full range of motion of all extremities, equal. NEUROLOGIC: No focal deficit. Cranial nerves II through XII are grossly intact. No headache, no double vision or headache. SKIN: Not dry. Intact. Turgor - normal. LYMPHATIC: No palpable lymph nodes/no lymphedema. MUSCULOSKELETAL: Normal joints with no swelling. Muscle tone is normal. ASSESSMENT: 1. PNEUMONITIS, RESOLVING. 2. MENTAL STATUS NORMAL NOW. 3. CHRONIC LUNG DISEASE. PLAN: 1. Continue steroids, antibiotics and nebs treatment. EDUCATION CARRIED OUT ABOUT: Counseling for smoking done. TIME SPENT: More than 30 minutes. Plan and coordination of the patient's care discussed in the presence of nurse. TIMMY
--- NOTE | 2017-09-27 11:01 | PN ---
09/20/17: Level 5 09/21/17: Intermediate 09/22/17: Intermediate 09/23/17: Intermediate 09/24/17: Intermediate 09/25/17: Intermediate 09/26/17: D as in discharge MTDD
--- NOTE | 2017-09-27 11:14 | PN ---
DATE OF SERVICE: 09/26/17 SUBJECTIVE: The patient was admitted with acute pneumonitis, bronchitis. The patient's condition has improved. She is feeling better. PHYSICAL EXAMINATION: HEENT: Head normocephalic, atraumatic. Eyes: Extraocular muscles are intact. Pupils are equal, round and reactive to light and accommodation. Ears: No lesions. Nose appeared normal. Throat: No exudate or erythema. NECK: Supple. No JVD, no carotid bruit. No lymphadenopathy or thyromegaly. LUNGS: Decreased breath sounds but clear to auscultation. Percussion note normal. Chest symmetrical. HEART: S1, S2, no S3. No murmurs. No cyanosis or clubbing. No ascites. Pulses: Dorsalis pedis and posterior tibial pulses +1 to +2 both sides. ABDOMEN: Soft. Nontender. Bowel sounds active. No CVA tenderness. No mass felt. EXTREMITIES: No edema. Full range of motion of all extremities, equal. NEUROLOGIC: No focal deficit. Cranial nerves II through XII are grossly intact. No headache, no double vision or headache. SKIN: Not dry. Intact. Turgor - normal. LYMPHATIC: No palpable lymph nodes/no lymphedema. MUSCULOSKELETAL: Normal joints with no swelling. Muscle tone is normal. PLAN: 1. Counseling for smoking done 2. The patient will be discharged on steroids and antibiotics. CONDITION: Stable The patient was seen and examined with the Nurse Practitioner. TIME SPENT: More than 30 minutes. Plan and coordination of the patient's care discussed in the presence of nurse. TIMMY
--- NOTE | 2017-09-29 13:23 | PN ---
DATE OF SERVICE: 09/25/17 SUBJECTIVE: 67 year old white female hospitalized pneumonia and COPD. The patient's condition has improved remarkably. REVIEW OF SYSTEMS: CONSTITUTIONAL: No night sweats. No fatigue, malaise, lethargy. No fever or chills. HEENT: Eyes: No visual changes. No eye pain. No eye discharge. ENT: No runny nose. No epistaxis. No sinus pain. No sore throat. No odynophagia. No congestion. RESPIRATORY: No cough, no congestion. No hemoptysis. No shortness of breath. CARDIOVASCULAR: No angina symptoms. No CHF symptoms. No atypical chest pain for CAD. No palpitations. No orthopnea. GASTROINTESTINAL: No abdominal pain. No nausea or vomiting. No diarrhea or constipation. No hematemesis. No hematochezia. GENITOURINARY: No urgency. No frequency. No dysuria. No hematuria. No obstructive symptoms. No discharge. No pain. No significant abnormal bleeding. MUSCULOSKELETAL: No musculoskeletal pain; no joint swelling. NEUROLOGICAL: No headache. No neck pain. No syncope. No seizures. No dizziness. PSYCHIATRIC: Not anxious. No depression. No suicidal thoughts. No homicidal thoughts. SKIN: No rash. No lesions. No wounds. ENDOCRINE: No unexplained weight loss. No weight gain. HEMATOLOGIC/LYMPHATIC: No anemia. No purpura. No petechiae. No prolonged or excessive bleeding. No palpable lymph nodes. PHYSICAL EXAMINATION: VITAL SIGNS: Temperature 97.7, pulse 69, respiratory rate 20, blood pressure 156/86 and pulse ox 98%. HEENT: Head normocephalic, atraumatic. Eyes: Extraocular muscles are intact. Pupils are equal, round and reactive to light and accommodation. Ears: No lesions. Nose appeared normal. Throat: No exudate or erythema. NECK: Supple. No JVD, no carotid bruit. No lymphadenopathy or thyromegaly. LUNGS: Decreased breath sounds but no wheeze. Clear to auscultation. Percussion note normal. Chest symmetrical. HEART: S1, S2, no S3. No murmurs. No cyanosis or clubbing. No ascites. Pulses: Dorsalis pedis and posterior tibial pulses +1 to +2 both sides. ABDOMEN: Soft. Nontender. Bowel sounds active. No CVA tenderness. No mass felt. EXTREMITIES: No edema. Full range of motion of all extremities, equal. NEUROLOGIC: No focal deficit. Cranial nerves II through XII are grossly intact. No headache, no double vision or headache. SKIN: Not dry. Intact. Turgor - normal. LYMPHATIC: No palpable lymph nodes/no lymphedema. MUSCULOSKELETAL: Normal joints with no swelling. Muscle tone is normal. LABS: WBC 7,600, potassium 3. Atrial blood gasses pO2 is more than 81 and on admission it was 59 remarkably improvement in her blood gasses. ASSESSMENT: 1. Acute pneumonitis/bronchitis resolving 2. Mental status normal 3. Hypokalemia 4. Chronic lung disease 5. Smoking 6. Hypertension 7. DJD spine PLAN: 1. K-Dur 20 meq PO three times a day 2. Continue NEBS, steroids and antibiotics 3. Counseling for smoking done CONDITION: Stable. TIME SPENT: More than 30 minutes. Plan and coordination of the patient's care discussed in the presence of nurse. TIMMY
--- NOTE | 2017-10-21 13:24 | DS ---
DATE OF SERVICE: 09/26/17 FINAL DIAGNOSIS: 1. PNEUMONIA, LEFT LOWER LOBE 2. COPD 3. HYPERTENSION 4. CHRONIC KIDNEY DISEASE 5. ASHD 6. NEUROPATHY 7. GERD 8. ANXIETY/DEPRESSION 9. HEPATITIS B 10. HYSTERECTOMY 11. APPENDECTOMY 12. CHOLECYSTECTOMY 13. RECTAL FISTULA 14. CERVICAL SPINE SURGERY 15. HEART CATH, 2016 DISCHARGE INSTRUCTIONS: 1. Followup appointment is scheduled with Dr. Lepe/Di Jaffe APRN on at 10:15 a.m. 2. Continue to use oxygen at 2L/NC at bedtime 3. Continue use of Xopenex nebulizer treatments at least 3 times daily 4. Please bring all your medications to your appointment MEDICATIONS AT DISCHARGE: [place] 7.5-325 one tab p.o. t.i.d. JOSR Norvasc 5 mg p.o. b.i.d. JOSR Aspirin 81 mg p.o. daily with meal JOSR Buspar 30 mg p.o. b.i.d. JOSR Coreg 3.125 mg p.o. b.i.d. with meal JOSR Colestid 1 gm p.o. t.i.d. JOSR Valium 5 mg p.o. bedtime JOSR Neurontin 300 mg p.o. b.i.d. JOSR Xopenex 1.25 mg one vial neb RT q.6h JOSR Zestril 40 mg p.o. b.i.d. JOSR Lasix 20 mg p.o. p.r.n. two times a week for leg swelling Micro K 10 mEq p.o. two times a week with Lasix Prilosec 40 mg p.o. b.i.d. a.c. JOSR Zoloft 100 mg p.o. daily JOSR Carafate 1 gm p.o. a.c. h.s. JOSR MEDICATION CHANGES: Increase Norvasc to 5 mg b.i.d. Temporary increase in potassium dose to 40 mEq b.i.d. for 5 days, then resume Potassium 10 mEq two times weekly p.r.n. with Lasix dose for leg swelling NEW PRESCRIPTIONS: Omnicef 300 mg b.i.d. for 5 days Prednisone 10 mg b.i.d. for 5 days K-Dur 40 mEq b.i.d. for 5 days DIET INSTRUCTIONS: Heart Healthy Diet ACTIVITY: Gradually resume as tolerated SMOKING: Stop smoking DISEASE SPECIFIC EDUCATION: Smoking cessation Steroid administration and risk of GI irrigation, bone demineralization Temporary potassium increased dose Nebulizer treatments Appointment HOSPITAL COURSE: This is a 67-year-old white female who is a heavy smoker. She has a history of severe COPD. She is not oxygen dependent. She presented to the emergency room with shortness of breath. Chest x-ray revealed possible pneumonia. ABGs were abnormal with decreased p02. Upon arrival in the emergency room with 02 sat down to 88. She was admitted, placed on IV Rocephin 1 gm daily, Solu-Cortef 125 mg q.6hr, started on Xopenex 0.125 mg q.6hr along with Pulmicort b.i.d. nebulizer. All of her home medications were continued. Due to her severe COPD it has taken several days in order for her wheezing to improve and her to be able to be up and about without oxygen. Today on day of discharge, she is satting 97% on room air. She did develop hypokalemia every weekend with a potassium of 3.0 yesterday. She was started on Potassium 40 mEq b.i.d., today is 3.2 and we will send her home with Potassium 40 mEq b.i.d. for the next 5 days. She has been afebrile since admission. Her vital signs have been stable today, temperature 98, heart rate 64, respirations 16, BP 136/80, pulse ox 97%. For the past two days she has been up and about, walking around, eating 95 to 100% of her meals. She has not required any oxygen. Prior to her admission to the hospital she had stated that she had ordered NicoDerm patches to start as she would like to quit smoking. We placed a NicoDerm patch on her during hospitalization. She has not smoked any during her hospital stay. She is going to go home with the patches and has agreed to try and quit smoking. She does have oxygen available that she uses p.r.n. and at night at home along with a nebulizer machine. Will send her home with Omnicef 300 mg b.i.d. for the next 5 days along with Prednisone 10 mg b.i.d. for the next 5 days. She is to use her nebulizer with Albuterol 2 to 3 times a day and slowly wean herself as tolerated. She is going to be discharged in stable condition and we will followup with her next week with a repeat CMP to check on her potassium. TIME SPENT: More than 60 minutes. TIMMY
--- NOTE | 2017-10-21 14:42 | HP ---
DATE OF SERVICE: 09/20/17 HISTORY OF PRESENT ILLNESS: This is a 66-year-old white female who has had chest congestion and cough for the past 2 to 3 days. Today, she developed increasing shortness of breath. She has a long history of COPD, has oxygen at home. She has had a low grade fever. She comes in with her sister. PAST MEDICAL HISTORY: Chronic lung disease COPD Smoker Generalized osteoarthritis Degenerative joint disease of the spine Hypertension Dyslipidemia History of fall with 10th rib fracture Anxiety Depression PAST SURGICAL HISTORY: Status post hysterectomy Appendectomy REVIEW OF SYSTEMS: CONSTITUTIONAL: Fever, chills, malaise. No night sweats. No fatigue, lethargy. HEENT: Eyes: No visual changes. No eye pain. No eye discharge. ENT: No runny nose. No epistaxis. No sinus pain. No sore throat. No odynophagia. No ear pain. No congestion. RESPIRATORY: Positive for cough and wheezing. No hemoptysis. No shortness of breath. CARDIOVASCULAR: No angina symptoms. No CHF symptoms. No atypical chest pain for CAD. No palpitations. No orthopnea. GASTROINTESTINAL: Positive for loss of appetite. No abdominal pain. No nausea or vomiting. No diarrhea or constipation. No hematemesis. No hematochezia. GENITOURINARY: No urgency. No frequency. No dysuria. No hematuria. No obstructive symptoms. No discharge. No pain. No significant abnormal bleeding. MUSCULOSKELETAL: No musculoskeletal pain. No joint swelling. No arthritis. NEUROLOGICAL: No headache. No neck pain. No syncope. No seizures. No dizziness. PSYCHIATRIC: Not anxious. No depression. No suicidal thoughts. No homicidal thoughts. SKIN: No rash. No lesions. No wounds. ENDOCRINE: No unexplained weight loss. No weight gain. HEMATOLOGIC/LYMPHATIC: No anemia. No purpura. No petechiae. No prolonged or excessive bleeding. No palpable lymph nodes. PERSONAL/FAMILY/SOCIAL HISTORY: The patient is a current every day heavy smoker. She currently resides by herself. No alcohol or ilicit drug use. MEDICATIONS: Valium 5 mg at bedtime Neurontin 300 mg b.i.d. [place] 7.5 q.i.d. Prilosec 20 mg b.i.d. Buspar 30 mg b.i.d. Zoloft 100 mg at bedtime Ultram 50 mg t.i.d. p.r.n. Zestril 40 mg b.i.d. Aspirin 81 mg daily Colestipol 1 gm p.o. t.i.d. ProAir inhaler q.4 to 6hr p.r.n. Norvasc 5 mg daily Coreg 3.125 mg daily Lasix 20 mg daily Xopenex as needed Potassium 10 mEq daily Carafate 1 gm p.o. q.i.d. ALLERGIES: SULFA PHYSICAL EXAMINATION: VITAL SIGNS: Temperature 100.3, pulse 99, respiratory rate 20, BP 180/84, pulse ox 93% on room air. HEENT: Head normocephalic, atraumatic. Eyes: Extraocular muscles are intact. Pupils are equal, round and reactive to light and accommodation. Ears: No lesions. Nose appeared normal. Throat: No exudate or erythema. NECK: Supple. No JVD, no carotid bruit. No lymphadenopathy or thyromegaly. LUNGS: Severely diminished breath sounds with bilateral inspiratory and expiratory wheezing otherwise normal. Percussion note normal. Chest symmetrical. HEART: S1, S2, no S3. No murmurs. No cyanosis or clubbing. No ascites. Pulses: Dorsalis pedis and posterior tibial pulses +1 to +2 both sides. ABDOMEN: Soft. Nontender. Bowel sounds active. No CVA tenderness. No mass felt. EXTREMITIES: No edema. Full range of motion of all extremities, equal. NEUROLOGIC: No focal deficit. Cranial nerves II through XII are grossly intact. No headache, no double vision or headache. SKIN: Not dry. Intact. Turgor - normal. LYMPHATIC: No palpable lymph nodes/no lymphedema. MUSCULOSKELETAL: Normal joints with no swelling. Muscle tone is normal. LAB VALUES: Hemoglobin 12.4, hematocrit 36.1, white count 9.76, platelets 191, sodium 39, potassium 3.7, BUN 12, creatinine 0.83, platelets 107. AST 55, ALT 109, alkaline phosphatase 133, total protein 6.8. ABGs on room air 02 sat 92, pH 7.483, pc02 31.7, p02 59, bicarb 23.8, total c02 25. Chest x-ray reveals bilateral pneumonia ASSESSMENT: 1. Lower lobe pneumonia 2. Acute COPD exacerbation 3. Heavy smoker 4. Fever 5. Hypertension 6 Shortness of breath PLAN: 1. Will admit 2. Place on Solu-Cortef 125 mg q.6hr IV 3. Rocephin 1 gm IV daily 4. Zithromax 500 mg p.o. daily times three days 5. Start Xopenex neb treatments q.6hr as scheduled 6. Regular diet 7. IV fluids at 83 cc/hr NS 8. Sputum for culture and sensitivity 9. 02 as needed 10. Routine telemetry orders 11. Chest x-ray 12. We will monitor closely TIME SPENT: More than 70 minutes. MTDD
== END 2017-09-26 11:12 | disposition home or self-care (01) | DRG 194 ==
LOC: ED 13:19 → MEDSURG A 18:34
PROVIDERS: ADMIT Internal Medicine; ATTEND Internal Medicine
DX: J18.8 Other pneumonia, unspecified organism (principal); B19.10 Unspecified viral hepatitis B without hepatic coma; J44.9 Chronic obstructive pulmonary disease, unspecified; I10 Essential (primary) hypertension; I12.9 Hypertensive chronic kidney disease with stage 1 through stage 4 chronic kidney disease, or unspecified chronic kidney disease; N18.9 Chronic kidney disease, unspecified; I25.10 Atherosclerotic heart disease of native coronary artery without angina pectoris; G62.9 Polyneuropathy, unspecified; K21.9 Gastro-esophageal reflux disease without esophagitis; F41.8 Other specified anxiety disorders; K60.4 Rectal fistula; I34.1 Nonrheumatic mitral (valve) prolapse
CPT/HCPCS: 36415; 80048; 80053; 82803; 83605; 84145; 85025; 87040; 87070; 87502; 87651; 93005; 93010; 94640; 96365; 96366; 96375; 99223; 99232; 99239; 99284

== ENCOUNTER 2017-10-06 09:21 | Outpatient (CLI) | END 2017-10-06 09:22 | disposition home or self-care (01) | LOC: LAB 09:21 | PROVIDERS: ATTEND Internal Medicine | DX: R74.8 Abnormal levels of other serum enzymes (principal) | CPT/HCPCS: 36415; 80053 ==

== ENCOUNTER 2017-10-13 09:31 | Outpatient (CLI) ==
--- NOTE | 2017-10-13 10:14 | US ---
EXAM: Ultrasound abdomen limited. HISTORY: Abnormal liver function tests. COMPARISON: CT 04/06/2017. TECHNIQUE: Abdominal, real time with image documentation: limited (eg, single organ, quadrant, foll ow-up) FINDINGS: The liver demonstrates mildly heterogeneous parenchymal echogenicity. There is no intrahe patic biliary dilatation. Portal venous flow is normal in direction. The gallbladder is absent. Co mmon duct measures approximately 0.5 cm. Visualized portions of the pancreas are unremarkable. IMPRESSION: Heterogeneous hepatic parenchyma which is nonspecific.
== END 2017-10-13 09:32 | disposition home or self-care (01) ==
LOC: RAD 09:31
PROVIDERS: ATTEND Internal Medicine
DX: B18.8 Other chronic viral hepatitis (principal); R94.5 Abnormal results of liver function studies
CPT/HCPCS: 36415; 80074

== ENCOUNTER 2018-06-21 10:41 | Outpatient (CLI) | payer OTHER ==
--- NOTE | 2018-06-21 14:50 | CT ---
EXAM: CT of the abdomen pelvis without contrast History: Weight loss and cough. Comparison: Chest CT 06/21/2018, abdominal ultrasound 10/13/2017, CT abdomen pelvis 04/06/2017 Technique: Multiplanar CT images through the abdomen pelvis were obtained without the administration of IV contrast Findings: Lung bases are free of consolidation. Calcified granuloma within the right lower lobe. No acute osseous abnormalities. Moderate to severe degenerative disc disease at L5-S1. Status post cholecystectomy. Atherosclerotic vascular calcifications. Common bile duct measures 1.6 cm in caliber. No focal liver or splenic lesions identified within limitations of a noncontrast rob dy. No peripancreatic inflammation. Adrenal glands are unremarkable. No renal stones and no hydron ephrosis. No bladder wall thickening. Uterus is not seen. Prominent submucosal fat deposition with in [place] of the colon suggesting prior episodes of inflammatory bowel disease. There is no acute col onic inflammation. No free air and no ascites. No pathologically enlarged lymph nodes. Impression: 1. Common bile duct is more dilated than expected for a patient status post cholecystectomy. Recomm end further evaluation with ERCP or MRCP to evaluate for common bile duct stones or stricture or ampu llary tumor. 2. Atherosclerotic vascular disease. 3. Moderate to severe degenerative disc disease at L5-S1.
--- NOTE | 2018-06-21 14:58 | CT ---
EXAM: CT of the chest without contrast History: Weight loss and cough. Comparison: CT abdomen pelvis 06/21/2018, chest CT 08/04/2017. Technique: Multiplanar CT images through the thorax were obtained without the administration of IV c ontrast Findings: Mild to moderate emphysema. Heart size is upper limits of normal. No pericardial effusio n. Stable small diverticulum of the aortic arch. No aortic aneurysm. No axillary lymphadenopathy. No pathologically enlarged mediastinal or hilar lymph nodes. No consolidation. No pleural fluid an d no pneumothorax. No suspicious lung masses or lung nodules. Scattered areas of subsegmental atele ctasis. For details in the upper abdomen, please see dedicated CT abdomen pelvis done on the same day. No ac kaibab osseous abnormalities. Impression: 1. No acute intrathoracic process. 2. Mild to moderate emphysema
== END 2018-06-21 10:42 | disposition home or self-care (01) ==
LOC: RAD 10:41
PROVIDERS: ATTEND Internal Medicine
DX: R10.9 Unspecified abdominal pain (principal); R05 Cough; R63.4 Abnormal weight loss; F17.210 Nicotine dependence, cigarettes, uncomplicated

== ENCOUNTER 2018-06-26 07:05 | Outpatient (CLI) | payer OTHER ==
--- NOTE | 2018-06-26 13:50 | MRI ---
EXAM: MRI abdomen without and with contrast/MRCP HISTORY: Abnormal CT of abdomen TECHNIQUE: Multiplanar, multisequence without and following the administration of intravenous Dotare m, 13 mL using a dynamic contrast enhanced protocol. MRCP is acquired with 3-D volume rendered image s of the biliary tree. COMPARISON: CT abdomen/pelvis from 06/21/2018 FINDINGS: The heart size is normal. No pericardial or pleural effusions are appreciated. There is no evidence of hepatic steatosis. No hepatic masses are detected. The portal hepatic veins are patent. There is mild intrahepatic dilatation. The gallbladder is surgically absent. The commo n bile duct is free intraluminal filling defects and dilated up to 14.1 mm. There is tapering toward s the ampulla. The pancreatic duct is dilated to 4 mm. There is incomplete pancreatic divisum. The pancreatic signal slightly diminished. The pancreatic enhancement is diminished. The adrenal gland s have normal signal morphology. The spleen has normal size and signal intensity. The kidneys are slightly small but maintain normal signal. No suspicious renal lesions are evident. Ureters are normal caliber their visualized portions. The visible intestines have normal signal enmanuel iber. The abdominal aorta is ectatic to 21.9 mm distally and 21.9 mm proximally. The aorta is ather osclerotic. No lymphadenopathy or ascites are appreciated. The bone marrow signal intensity is normal. IMPRESSION: 1. Findings suggestive of chronic pancreatitis. 2. Incomplete pancreatic divisum and pancreatic duct dilatation. The three mild intrahepatic and se symone extra panic dilatation. A stricture of the distal common bile duct is a possibility. Consider correlation with ERCP if clinically indicated. 3. Mild atrophy of the kidneys suggest a component of underlying chronic renal parenchymal disease. 4. ASCVD and ectasia of the abdominal aorta up to 21.9 mm.
== END 2018-06-26 07:06 | disposition home or self-care (01) ==
LOC: RAD 07:05
PROVIDERS: ATTEND Internal Medicine
DX: R93.5 Abnormal findings on diagnostic imaging of other abdominal regions, including retroperitoneum (principal)

== ENCOUNTER 2018-10-19 11:27 | Outpatient (CLI) ==
--- NOTE | 2018-10-20 09:49 | MAMMO ---
EXAM: Digital screening mammogram with 3-D tomosynthesis and CAD HISTORY: Screening mammogram COMPARISON: mammogram 11/01/2012 and 03/23/2011. FINDINGS: Bilateral CC and MLO views of the breasts were performed digitally and demonstrate scatter ed fibroglandular breast density. Benign calcifications are present. There is no abnormal nodule or calcification. There is no significant interval change. IMPRESSION: No new or suspicious nodule or calcification RECOMMENDATION: Annual screening mammogram BIRADS category II: Benign findings
== END 2018-10-19 11:28 | disposition home or self-care (01) ==
LOC: RAD 11:27
PROVIDERS: ATTEND Internal Medicine
DX: Z12.31 Encounter for screening mammogram for malignant neoplasm of breast (principal)

== ENCOUNTER 2018-11-20 12:14 | Inpatient (IN) ==
--- NOTE | 2018-11-20 13:47 | CT ---
EXAM: CT of the abdomen pelvis without contrast History: Abdominal pain with vomiting and nausea. Comparison: Chest CT 11/20/2018, MRI of the upper 06/26/2018 Technique: Multiplanar CT images through the abdomen pelvis were obtained without the administration of IV contrast Findings: Calcified granuloma within the right lower lobe. No acute osseous abnormalities. Status post cholecystectomy. No focal liver or splenic lesions. Persistent dilatation of the common bile duct relatively unchanged compared to the prior study. Adrenal glands are unremarkable. No pe ripancreatic inflammation. No renal stones and no hydronephrosis. The appendix is not seen. Athero sclerotic vascular calcifications. No bowel obstruction. No free air and no ascites. No bladder wa ll thickening. No perirectal inflammation. Uterus is not seen and likely has been surgically remove d. Impression: No acute intra-abdominal or pelvic process
--- NOTE | 2018-11-20 13:50 | CT ---
EXAM: CT THORAX HISTORY: Cough. TECHNIQUE: CT thorax without intravenous contrast. Multiplanar images presented. COMPARISON: 06/21/2018 FINDINGS: Normal heart size. No pericardial effusion. There is mild to moderate atherosclerotic disease inclu ding coronary artery level. Limited evaluation of the mediastinum and hilar structures without the a dministration of intravenous contrast agent. No gross mediastinal lymphadenopathy or hilar mass is s een. Lungs reveal a nodular opacity of the posteriolateral lower aspect of the left upper lobe measuring a bout 7.2 mm on axial dimension, noncalcified and new since previous exam. There is mild biapical pul monary emphysema. Lungs are otherwise unremarkable. No pleural fluid or vascular congestion. The bones reveal scoliosis and degenerative changes of the spine. See also same day CT abdomen and p frida report. IMPRESSION: 1. Interval development of a small nodular opacity in the lower left upper lobe which could represen t focal atelectasis or conceivably focal pneumonia. A developing benign and malignant nodule is not excluded and follow-up CT should be considered with attention to this region. 2. Pulmonary emphysema. 3. Atherosclerosis.
--- NOTE | 2018-11-20 14:03 | ED.PDOC ---
General ED Provider: Dr. ARELI MORALES Chief Complaint: Nausea/Vomiting Stated Complaint: flu like symptom plus N/V/ ABDOMINAL PAIN Time Seen by Physician: 12:30 (RN PRESENT AT ALL TIMES ) Mode of Arrival: Walk-In Information Source: Patient Exam Limitations: No limitations Primary Care Provider: KAYCEE WOODS Nursing and Triage Documentation Reviewed and Agree: Yes Does patient meet sepsis criteria?: No System Inflammatory Response Syndrome: Not Applicable Sepsis Protocol: For patient's 13 years and over: Temp is 96.8 and below OR 101 and greater Pulse >90 BPM Resp >20/minute Acutely Altered Mental Status Are patient's symptoms suggestive of a new infection, such as: -Pneumonia -Skin, Soft Tissue -Endocarditis -UTI -Bone, Joint Infection -Implantable Device -Acute Abdominal Infection -Wound Infection -Meningitis -Blood Stream Catheter Infection -Unknown Respiratory Complaint Exam - Respiratory Complaint/Exam Onset/Duration: 3 DAYS Symptoms Are: Still present Timing: Constant Initial Severity: Mild Current Severity: Mild Location: Nose, Throat, Chest Character: Reports: Dry cough Aggravating: Reports: URI Associated Signs and Symptoms: Reports: URI, Nasal congestion, Vomiting. Denies : Rapid breathing, Dyspnea, Fever, Chills, Chest pain, Pleuritic chest pain, Wheezing, Hemoptysis, Dizziness, Calf pain, Calf swelling, Edema, Hoarseness, Sinus discomfort, Sore throat, Weight loss, Decreased oral intake, Increased thirst, Increased appetite, Increased urination Related History: Reports: Similar episode History of Healthcare-Acquired Pneumonia: No Related Surgical History: Reports: None Pulmonary Embolism Risk Factors: None Cardiac Risk Factors: Reports: None Pseudomonas Risk Factors: Reports: None Tuberculosis Risk Factors: Reports: None Status Asthmaticus Risk Factors: Reports: None Home Oxygen Use: No Recent Stress Test: No Recent Echo/LV Function: No Current Antibiotic Use: No Current Asthma Medication Use: No Respiratory Distress: None Inadequate Respiratory Effort: No Dysphagia Present: No Stridor Present: No JVD Present: No Accessory Muscle Use: No Retractions: Not Present Diminished Breath Sounds: No Sinus Tenderness: None Differential Diagnoses: Pneumonia, Bronchitis Review of Systems - Review Of Systems Constitutional: Reports: Malaise, Loss of appetite Eyes: Reports: No symptoms Ears, Nose, Mouth, Throat: Reports: No symptoms Respiratory: Reports: Cough Cardiac: Reports: No symptoms GI: Reports: No symptoms : Reports: No symptoms Musculoskeletal: Reports: No symptoms Skin: Reports: No symptoms Neurological: Reports: No symptoms Endocrine: Reports: No symptoms Hematologic/Lymphatic: Reports: No symptoms All Other Systems: Reviewed and Negative Past Medical History - Past Medical History Previously Healthy: No Endocrine: Reports: None Cardiovascular: Reports: Hypertension Respiratory: Reports: COPD Hematological: Reports: None Gastrointestinal: Reports: GERD Genitourinary: Reports: None Neuro/Psych: Reports: Anxiety, Depression Musculoskeletal: Reports: None Cancer: Reports: None Last Menstrual Period: Unknown - Surgical History General Surgical History: Reports: Hysterectomy, Appendectomy - Family History Family History: Reports: Unknown - Social History Smoking Status: Current every day smoker Hx Substance Use: No Alcohol Screening: None - Immunizations Tetanus Shot up to Date: Yes Physical Exam - Physical Exam Appearance: Well-appearing, No pain distress, Well-nourished Eyes: JUSTINO, EOMI, Conjunctiva clear ENT: Ears normal, Nose normal, Oropharynx normal Respiratory: Airway patent, Breath sounds clear, Breath sounds equal, Respirations nonlabored Cardiovascular: RRR, Pulses normal, No rub, No murmur GI/: Soft, Nontender, No masses, Bowel sounds normal, No Organomegaly Musculoskeletal: Normal strength, ROM intact, No edema, No calf tenderness Skin: Warm, Dry, Normal color Neurological: Sensation intact, Motor intact, Reflexes intact, Cranial nerves intact, Alert, Oriented Psychiatric: Affect appropriate, Mood appropriate Interpretation - Radiology Interpretation Radiology Interpretation By: Radiologist Radiology Results: Positive (PNEUMONIA) Critical Care Note - Critical Care Note Total Time (mins): 0 Course - Course Hematology/Chemistry: 11/20/18 13:09 11/20/18 13:09 Orders, Labs, Meds: Lab Review 11/20/18 11/20/18 11/20/18 13:02 13:02 13:09 WBC 12.04 H RBC 4.67 Hgb 13.9 Hct 40.3 MCV 86.3 MCH 29.8 MCHC 34.5 RDW Coeff of Tanner 13.0 Plt Count 183 Immature Gran % (Auto) 0.6 Neut % (Auto) 77.1 Lymph % (Auto) 16.3 [place] % (Auto) 5.3 Eos % (Auto) 0.1 Baso % (Auto) 0.6 Immature Gran # (Auto) 0.1 Neut # (Auto) 9.3 H Lymph # (Auto) 2.0 [place] # (Auto) 0.6 Eos # (Auto) 0.0 Baso # (Auto) 0.1 Sodium Potassium Chloride Carbon Dioxide Anion Gap BUN Creatinine Estimated GFR (MDRD) BUN/Creatinine Ratio Glucose Calcium Total Bilirubin AST ALT Alkaline Phosphatase Total Protein Albumin Globulin Albumin/Globulin Ratio Urine Color Yellow Urine Clarity Clear Urine pH 6.0 Ur Specific [place] 1.020 Urine Protein Trace Urine Glucose (UA) Negative Urine Ketones Negative Urine Blood 1+ Urine Nitrite Negative Urine Bilirubin 1+ Urine Urobilinogen 0.2 Ur Leukocyte Esterase Negative Urine Microscopic RBC 5-10 Ur Squamous Epith Cells 0-2 Influ A Molecular Assay Negative by naat Influ B Molecular Assay Negative by naat 11/20/18 13:09 WBC RBC Hgb Hct MCV MCH MCHC RDW Coeff of Tanner Plt Count Immature Gran % (Auto) Neut % (Auto) Lymph % (Auto) [place] % (Auto) Eos % (Auto) Baso % (Auto) Immature Gran # (Auto) Neut # (Auto) Lymph # (Auto) [place] # (Auto) Eos # (Auto) Baso # (Auto) Sodium 140.0 Potassium 3.60 Chloride 106.0 Carbon Dioxide 24.0 Anion Gap 13.60 BUN 10.0 Creatinine 0.90 Estimated GFR (MDRD) 62.00 BUN/Creatinine Ratio 11.11 Glucose 119.0 H Calcium 9.40 Total Bilirubin 1.20 AST 62.0 H ALT 65.0 H Alkaline Phosphatase 161.0 H Total Protein 7.70 Albumin 4.30 Globulin 3.40 Albumin/Globulin Ratio 1.26 Urine Color Urine Clarity Urine pH Ur Specific [place] Urine Protein Urine Glucose (UA) Urine Ketones Urine Blood Urine Nitrite Urine Bilirubin Urine Urobilinogen Ur Leukocyte Esterase Urine Microscopic RBC Ur Squamous Epith Cells Influ A Molecular Assay Influ B Molecular Assay Orders Category Date Time Status ABG DRAW REQUEST Stat CARDIO 11/20/18 14:08 Ordered EKG-(ED ONLY) Stat CARDIO 11/20/18 14:06 Ordered ABG Stat LAB 11/20/18 14:08 Ordered BLOOD CULTURE Stat LAB 11/20/18 14:07 Ordered CBC W/ AUTO DIFF Stat LAB 11/20/18 13:09 Completed COMPREHENSIVE METABOLIC PANEL Stat LAB 11/20/18 13:09 Completed FLU A/B MOLECULAR Stat LAB 11/20/18 13:02 Completed LACTIC ACID Stat LAB 11/20/18 14:07 Ordered MOLECULAR GROUP A STREP Stat LAB 11/20/18 13:02 Completed PROCALCITONIN Stat LAB 11/20/18 14:07 Ordered URINALYSIS C & S IF INDICATED Stat LAB 11/20/18 13:[address] ABDOMEN/PELVIS WO CONTRAST Stat RADS 11/20/18 12:[address] CHEST W/O CONTRAST Stat RADS 11/20/18 12:59 Completed Vital Signs: Temp Pulse Resp BP Pulse Ox 11/20/18 12:14 99.0 F 93 H 16 164/83 H 65 L Departure - Departure Time of Disposition: 14:03 Disposition: ADMITTED INPATIENT Discharge Problem: Nausea, Vomiting Pneumonia Qualifiers: Pneumonia type: due to unspecified organism Laterality: unspecified laterality Lung location: unspecified part of lung Qualified Code(s): J18.9 - Pneumonia, unspecified organism Abdominal pain Qualifiers: Abdominal location: unspecified location Qualified Code(s): R10.9 - Unspecified abdominal pain Instructions: Bacterial Pneumonia (ED) Condition: Good Pt referred to PMD for follow-up: Yes IPMP verified?: No Prescriptions: Azithromycin [Zithromax] 500 mg PO DIRECTED #6 tablet Allergies/Adverse Reactions: Allergies Sulfa (Sulfonamide Antibiotics) Adverse Reaction (Verified 11/20/18 12:57) Home Medications: Ambulatory Orders Diazepam [Valium] 5 mg PO BEDTIME 01/07/14 Gabapentin [Neurontin] 300 mg PO BID 01/07/14 Omeprazole [Prilosec] 20 mg PO BIDAC 01/19/14 Buspirone HCl 30 mg PO BID 10/20/14 Sertraline HCl [Zoloft] 100 mg PO BEDTIME 10/20/14 Lisinopril [Zestril] 40 mg PO BID #60 tablet 10/23/14 Aspirin [Aspir 81] 81 mg PO DAILY 11/05/16 Colestipol HCl 1 gm PO TID 11/05/16 Albuterol Sulfate [Proair Hfa] 2 puff IH Q6H 09/20/17 Carvedilol 3.125 mg PO DAILY 09/20/17 Levalbuterol HCl [Xopenex] 1.25 mg IH Q6HR PRN 09/20/17 Sucralfate [Carafate] 1 gm PO QID 09/20/17 Amlodipine Besylate [Norvasc] 5 mg PO BID tablet 09/26/17 Furosemide [Lasix] 20 mg PO DAILY PRN 09/26/17 Hydrocodone Bit/Acetaminophen [[place] 7.5-325] 1 tab PO TID tab 09/26/17 Potassium Chloride [K-Dur] 40 meq PO BID #10 tab 09/26/17 Potassium Chloride [Micro-K Cap] 10 meq PO DAILY PRN 09/26/17 Azithromycin [Zithromax] 500 mg PO DIRECTED #6 tablet 11/20/18 Disposition Discussed With: Patient
[2018-11-20] MEDS ORDERED: ROCEPHIN ONE (14:36)
[2018-11-20] MEDS: SOLU-MEDROL 40 MG IVP SCH ×2 (14:42→20:26)
[2018-11-20] MEDS: ROCEPHIN 1 GM in SODIUM CHLORIDE 50 ML IV SCH (14:44)
[2018-11-20] MEDS ORDERED: ZOFRAN 4 MG/2 ML IVP STA (14:48)
[2018-11-20 15:39] VITALS: BMI 24.4
[2018-11-20] MEDS: NORCO 7.5-325 PO SCH ×2 (15:55→20:27)
[2018-11-20] MEDS: COLESTID PO SCH ×2 (15:55→20:27)
[2018-11-20] MEDS: ZITHROMAX 500 MG in SODIUM CHLORIDE 250 ML IV SCH (15:55)
[2018-11-20] MEDS: SODIUM CHLORIDE 1,000 ML IV SCH (15:56)
[2018-11-20] MEDS: K-DUR PO SCH (17:26)
[2018-11-20] MEDS: PRILOSEC PO SCH (17:26)
[2018-11-20] MEDS: CARAFATE PO SCH ×2 (17:26→20:27)
[2018-11-20] MEDS: DUONEB NEB SCH ×2 (18:03→23:20)
[2018-11-20] MEDS: BUSPAR PO SCH (20:26)
[2018-11-20] MEDS: ZESTRIL PO SCH (20:27)
[2018-11-20] MEDS: VALIUM PO SCH (20:27)
[2018-11-20] MEDS: NORVASC PO SCH (20:27)
[2018-11-20] MEDS: ZOLOFT PO SCH (20:27)
[2018-11-20] MEDS: NEURONTIN PO SCH (20:27)
[2018-11-20] MEDS ORDERED: BUSPIRONE HCL 30 MG PO SCH (21:00)
[2018-11-20] MEDS ORDERED: NON-FORMULARY MEDICATION (Sertraline Hcl [Zoloft] 100 MG) PO SCH (21:00)
[2018-11-21] MEDS: DUONEB NEB SCH ×3 (04:35→16:56)
[2018-11-21] MEDS: PRILOSEC PO SCH ×2 (05:35→16:31)
[2018-11-21] MEDS: CARAFATE PO SCH ×4 (05:35→20:26)
[2018-11-21] MEDS: SODIUM CHLORIDE 1,000 ML IV SCH ×2 (05:36→18:04)
[2018-11-21] MEDS ORDERED: TYLENOL PO STA ×2 (05:44→16:35)
[2018-11-21] MEDS ORDERED: ZOFRAN 4 MG/2 ML IVP PRN (08:10)
[2018-11-21] MEDS: SOLU-MEDROL 40 MG IVP SCH ×2 (08:38→20:27)
[2018-11-21] MEDS: ASPIRIN EC PO SCH (08:39)
[2018-11-21] MEDS: COLESTID PO SCH ×3 (08:39→20:26)
[2018-11-21] MEDS: BUSPAR PO SCH ×2 (08:39→20:26)
[2018-11-21] MEDS: K-DUR PO SCH ×2 (08:39→16:31)
[2018-11-21] MEDS: ROCEPHIN 1 GM in SODIUM CHLORIDE 50 ML IV SCH (08:39)
[2018-11-21] MEDS: NORCO 7.5-325 PO SCH ×3 (08:40→20:26)
[2018-11-21] MEDS: ZESTRIL PO SCH ×2 (08:40→20:27)
[2018-11-21] MEDS: COREG PO SCH (08:40)
[2018-11-21] MEDS: NEURONTIN PO SCH ×2 (08:40→20:26)
[2018-11-21] MEDS: NORVASC PO SCH ×2 (08:40→20:26)
--- NOTE | 2018-11-21 08:50 | PCM.PROG ---
Attending Provider: ATTENDING PROVIDER: Dr. KAYCEE WOODS DATE OF SERVICE: 11/21/18 SUBJECTIVE: This 68 year old WHITE/ F was hospitalized 11/20/18 with nausea and abdominal pain. CT scan of the abdomen was unchanged, dilated biliary duct. CT chest showed possible focal nodular pneumonia. She is a smoker and has chronic cough. This morning she is not coughing but still has abdominal discomfort with nausea. REVIEW OF SYSTEMS: CONSTITUTIONAL: No night sweats. No fatigue, malaise, lethargy. No fever or chills. HEENT: Eyes: No visual changes. No eye pain. No eye discharge. ENT: No runny nose. No epistaxis. No sinus pain. No odynophagia. No congestion. RESPIRATORY: No cough, no congestion. No hemoptysis. No shortness of breath. CARDIOVASCULAR: No angina symptoms. No CHF symptoms. No atypical chest pain for CAD. No palpitations. No orthopnea.. GASTROINTESTINAL: No abdominal pain. No nausea or vomiting. No diarrhea or constipation. No hematemesis. No hematochezia. GENITOURINARY: No urgency. No frequency. No dysuria. No hematuria. No obstructive symptoms. No discharge. No pain. No significant abnormal bleeding. MUSCULOSKELETAL: No musculoskeletal pain; no joint swelling. NEUROLOGICAL: Awake, alert, oriented to time, place and person. No headache. No neck pain. No syncope. No seizures. No dizziness. PSYCHIATRIC: Not anxious. No depression. No suicidal thoughts. No homicidal thoughts. SKIN: No rash. No lesions. No wounds. ENDOCRINE: No unexplained weight loss. No weight gain. HEMATOLOGIC/LYMPHATIC: No anemia. No purpura. No petechiae. No prolonged or excessive bleeding. No palpable lymph nodes. PHYSICAL EXAMINATION: GENERAL: The patient is awake, alert and oriented, lying in bed in no distress. VITAL SIGNS: Temperature 97.9 F, Pulse 92, Respiratory Rate 19, BP 172/80, Pulse Ox 92% HEENT: Head normocephalic, atraumatic. Eyes: Extraocular muscles are intact. Pupils are equal, round and reactive to light and accommodation. Ears: No lesions. Nose appeared normal. Throat: No exudate or erythema. NECK: Supple. No JVD, no carotid bruit. No lymphadenopathy or thyromegaly. LUNGS: Decreased breath sounds. Clear to auscultation. Percussion note normal. Chest symmetrical. HEART: S1, S2, no S3. No murmurs. No cyanosis or clubbing. No ascites. Pulses: Dorsalis pedis and posterior tibial pulses +1 to +2 both sides. ABDOMEN: Soft. Non-tender. Bowel sounds active. No CVA tenderness. No mass felt. EXTREMITIES: No edema. Full range of motion of all extremities, equal. NEUROLOGIC: No focal deficit. Cranial nerves II through XII are grossly intact. No headache, no double vision or headache. SKIN: Warm and dry. Intact. Turgor-normal. LYMPHATIC: No palpable lymph nodes/no lymphedema. MUSCULOSKELETAL: Normal joints with no swelling. Muscle tone is normal. LAB REVIEW: 11/21/18 04:11 11/21/18 04:11 11/21/18 04:11: WBC 10.50 H, RBC 4.87, Hgb 14.3, Hct 42.9, MCV 88.1, MCH 29.4, MCHC 33.3, RDW Coeff of Tanner 13.6, Plt Count 174, Neutrophils % (Manual) 93.0 H, Lymphocytes % (Manual) 7.0 L, Anisocytosis Not present 11/21/18 04:11: Sodium 139.6, Potassium 4.36, Chloride 109.0 H, Carbon Dioxide 21.4 L, Anion Gap 13.56, BUN 16.2, Creatinine 0.80, Estimated GFR (MDRD) 71.00, BUN/Creatinine Ratio 20.25, Glucose 145.5 H, Calcium 9.71, Total Bilirubin 0.52 , AST 36.0 D, ALT 49.5 H, Alkaline Phosphatase 127.3 D, Total Creatine Kinase 39.6, Troponin I < 0.012, Total Protein 7.04, Albumin 4.30, Globulin 2.74, Albumin/Globulin Ratio 1.56 11/20/18 20:48: Total Creatine Kinase 43.0, Troponin I < 0.012 11/20/18 14:20: Lactic Acid 0.80 11/20/18 14:20: Procalcitonin < 0.05 11/20/18 14:08: Puncture Site Lbrach, O2 Saturation 94.0 L, ABG pH 7.433, ABG pCO2 33.1 L, ABG pO2 69.0 L, ABG HCO3 22.1, ABG Total CO2 23, ABG Base Excess -2 , FiO2 % 21.0 11/20/18 13:09: Sodium 140.0, Potassium 3.60, Chloride 106.0, Carbon Dioxide 24.0, Anion Gap 13.60, BUN 10.0, Creatinine 0.90, Estimated GFR (MDRD) 62.00, BUN/Creatinine Ratio 11.11, Glucose 119.0 H, Calcium 9.40, Total Bilirubin 1.20 , AST 62.0 H, ALT 65.0 H, Alkaline Phosphatase 161.0 H, Total Protein 7.70, Albumin 4.30, Globulin 3.40, Albumin/Globulin Ratio 1.26 11/20/18 13:09: WBC 12.04 H, RBC 4.67, Hgb 13.9, Hct 40.3, MCV 86.3, MCH 29.8, MCHC 34.5, RDW Coeff of Tanner 13.0, Plt Count 183, Immature Gran % (Auto) 0.6, Neut % (Auto) 77.1, Lymph % (Auto) 16.3, [place] % (Auto) 5.3, Eos % (Auto) 0.1, Baso % (Auto) 0.6, Immature Gran # (Auto) 0.1, Neut # (Auto) 9.3 H, Lymph # ( Auto) 2.0, [place] # (Auto) 0.6, Eos # (Auto) 0.0, Baso # (Auto) 0.1 11/20/18 13:02: Urine Color Yellow, Urine Clarity Clear, Urine pH 6.0, Ur Specific [place] 1.020, Urine Protein Trace, Urine Glucose (UA) Negative, Urine Ketones Negative, Urine Blood 1+, Urine Nitrite Negative, Urine Bilirubin 1+, Urine Urobilinogen 0.2, Ur Leukocyte Esterase Negative, Urine Microscopic RBC 5- 10, Ur Squamous Epith Cells 0-2 11/20/18 13:02: Influ A Molecular Assay Negative by naat, Influ B Molecular Assay Negative by naat ASSESSMENT: Please see below. 1. Pneumonia by CT scan with bronchitis 2. Chronic lung disease with history of smoker. 3. Abdominal pain with nausea 4. Abnormal liver enzymes, amylase and lipase pending. PLAN: 1. Continue NEBS, antibiotics and steroids. 2. Start on soft diet 3. Continue Prilosec and Carafate Plan and coordination of the patient's care discussed in the presence of Cash Applications Clerk and nurse. CONDITION: Stable. SCRIBED BY: Glynn VILCHIS scribed while in presence of service performed by Dr. KAYCEE WOODS on 11/21/18 ([id number])
[2018-11-21] MEDS: ZITHROMAX 500 MG in SODIUM CHLORIDE 250 ML IV SCH (09:49)
--- NOTE | 2018-11-21 10:50 | HP ---
DATE OF SERVICE: 11/20/18 HISTORY OF PRESENT ILLNESS: This is a 68=year-old white female who presented to the emergency room with nausea, vomiting and abdominal pain with flu-like symptoms. PAST MEDICAL HISTORY: COPD Heavy smoker Generalized osteoarthritis Degenerative joint disease of the spine Hypertension Dyslipidemia History of fall Anxiety Depression Weight loss Recurrent pneumonia PAST SURGICAL HISTORY: Hysterectomy Appendectomy REVIEW OF SYSTEMS: CONSTITUTIONAL: Fever. No night sweats. No fatigue, malaise, lethargy. No chills. HEENT: Eyes: No visual changes. No eye pain. No eye discharge. ENT: No runny nose. No epistaxis. No sinus pain. No sore throat. No odynophagia. No ear pain. No congestion. RESPIRATORY: Cough. No congestion. No hemoptysis. No shortness of breath. CARDIOVASCULAR: No angina symptoms. No CHF symptoms. No atypical chest pain for CAD. No palpitations. No PND. No orthopnea. GASTROINTESTINAL: Loss of appetite. Nausea and vomiting. No abdominal pain. No diarrhea or constipation. No hematemesis. No hematochezia. GENITOURINARY: No urgency. No frequency. No dysuria. No hematuria. No obstructive symptoms. No discharge. No pain. No significant abnormal bleeding. MUSCULOSKELETAL: No musculoskeletal pain. No joint swelling. No arthritis. NEUROLOGICAL: No headache. No neck pain. No syncope. No seizures. No dizziness. PSYCHIATRIC: Not anxious. No depression. No suicidal thoughts. No homicidal thoughts. SKIN: No rash. No lesions. No wounds. ENDOCRINE: No unexplained weight loss. No weight gain. HEMATOLOGIC/LYMPHATIC: No anemia. No purpura. No petechiae. No prolonged or excessive bleeding. No palpable lymph nodes. PERSONAL/FAMILY/SOCIAL HISTORY: She is ; a heavy smoker; no alcohol or illicit drug use. She resides alone. MEDICATIONS: (HOME) Valium 5 mg p.o. bedtime Neurontin 300 mg p.o. b.i.d. Prilosec 20 mg p.o. b.i.d. a.c. Buspirone 30 mg p.o. b.i.d. Zoloft 100 mg p.o. bedtime Zestril 40 mg p.o. b.i.d. Aspirin 81 mg p.o. daily Carafate 1 gm p.o. q.i.d. ProAir HFA two puff IH q.6h Xopenex 1.25 mg IH q.6hr p.r.n. Lasix 20 mg p.o. daily p.r.n. Hydrocodone/Acetaminophen one tab p.o. t.i.d. Norvasc 5 mg p.o. b.i.d. ALLERGIES: SULFA (SULFANAMIDE ANTIBIOTICS) PHYSICAL EXAMINATION: VITAL SIGNS: Temperature 99, heart rate 93, respirations 16, BP 164/83, pulse ox 75. HEENT: Head normocephalic, atraumatic. Eyes: Extraocular muscles are intact. Pupils are equal, round and reactive to light and accommodation. Ears: No lesions. Nose appeared normal. Throat: No exudate or erythema. NECK: Supple. No JVD, no carotid bruit. No lymphadenopathy or thyromegaly. LUNGS: Diminished breath sounds with expiratory wheezing. Percussion note normal. Chest symmetrical. HEART: S1, S2, no S3. No murmurs. No cyanosis or clubbing. No ascites. Pulses: Dorsalis pedis and posterior tibial pulses +1 to +2 bilaterally. ABDOMEN: Soft. Nontender. Bowel sounds active. No CVA tenderness. No mass felt. EXTREMITIES: No edema. Full range of motion of all extremities, equal. NEUROLOGIC: No focal deficit. Cranial nerves II through XII are grossly intact. No headache, no double vision or headache. SKIN: Not dry. Intact. Turgor - normal. LYMPHATIC: No palpable lymph nodes/no lymphedema. MUSCULOSKELETAL: Normal joints with no swelling. Muscle tone is normal. LABS: White count 12.04, hemoglobin 13.9, hematocrit 40.3, platelets 183. Sodium 140, potassium 3.6, BUN 10, creatinine 0.9, glucose 119. Urine +1 blood, +1 bilirubin , negative for leuks, negative nitrites. Influenza A and B both negative. AST 62 , ALT 65. CT of the chest shows possible focal pneumonia. ABG 02 sat 94, pc02 33, p02 69, bicarb 22.1. ASSESSMENT: 1. ACUTE BACTERIAL PNEUMONIA 2. ABDOMINAL PAIN 3. SHORTNESS OF BREATH PLAN: 1. We will admit. 2. Routine telemetry orders. 3. CBC, CMP daily. 4. Rocephin 1 gm IV daily. 5. Zithromax 500 mg p.o. daily times three days. 6. Xopenex neb treatments t.i.d. JOSR. 7. Solu-Cortef 125 mg IV q.8hr. 8. CBC, CMP daily. 9. Oxygen 1 to 2L as needed. 10. Low sodium diet. 11. Continue all home medications. TIME SPENT: More than 70 minutes. MTDD
[2018-11-21] MEDS: VALIUM PO SCH (20:26)
[2018-11-21] MEDS: ZOLOFT PO SCH (20:26)
[2018-11-22] MEDS: DUONEB NEB SCH ×4 (00:10→19:50)
[2018-11-22] MEDS: SODIUM CHLORIDE 1,000 ML IV SCH (03:44)
[2018-11-22] MEDS: PRILOSEC PO SCH ×2 (05:41→16:50)
[2018-11-22] MEDS: CARAFATE PO SCH ×4 (05:41→20:45)
[2018-11-22] MEDS: ROCEPHIN 1 GM in SODIUM CHLORIDE 50 ML IV SCH (08:45)
[2018-11-22] MEDS: SOLU-MEDROL 40 MG IVP SCH ×2 (08:45→20:45)
[2018-11-22] MEDS: COLESTID PO SCH ×3 (08:46→20:45)
[2018-11-22] MEDS: BUSPAR PO SCH ×2 (08:46→20:44)
[2018-11-22] MEDS: NORVASC PO SCH ×2 (08:47→20:45)
[2018-11-22] MEDS: NORCO 7.5-325 PO SCH ×3 (08:47→20:44)
[2018-11-22] MEDS: COZAAR PO SCH (08:47)
[2018-11-22] MEDS: COREG PO SCH (08:47)
[2018-11-22] MEDS: ASPIRIN EC PO SCH (08:47)
--- NOTE | 2018-11-22 08:47 | PCM.PROG ---
Attending Provider: ATTENDING PROVIDER: Dr. KAYCEE WOODS This patient is seen with Di Jaffe, Nurse Practitioner. DATE OF SERVICE: 11/22/18 SUBJECTIVE: This 68 year old WHITE/ F was hospitalized 11/20/18. The patient is resting comfortably. No abdominal pain or diarrhea. She ate well yesterday. Nt requiring oxygen this morning. Coughing is slowly improving. REVIEW OF SYSTEMS: CONSTITUTIONAL: No night sweats. No fatigue, malaise, lethargy. No fever or chills. Weakness. HEENT: Eyes: No visual changes. No eye pain. No eye discharge. ENT: No runny nose. No epistaxis. No sinus pain. No odynophagia. No congestion. RESPIRATORY: Cough, no congestion. No hemoptysis. No shortness of breath. CARDIOVASCULAR: No angina symptoms. No CHF symptoms. No atypical chest pain for CAD. No palpitations. No orthopnea.. GASTROINTESTINAL: No abdominal pain. No nausea or vomiting. No diarrhea or constipation. No hematemesis. No hematochezia. GENITOURINARY: No urgency. No frequency. No dysuria. No hematuria. No obstructive symptoms. No discharge. No pain. No significant abnormal bleeding. MUSCULOSKELETAL: No musculoskeletal pain; no joint swelling. NEUROLOGICAL: Awake, alert, oriented to time, place and person. No headache. No neck pain. No syncope. No seizures. No dizziness. PSYCHIATRIC: Not anxious. No depression. No suicidal thoughts. No homicidal thoughts. SKIN: No rash. No lesions. No wounds. ENDOCRINE: No unexplained weight loss. No weight gain. HEMATOLOGIC/LYMPHATIC: No anemia. No purpura. No petechiae. No prolonged or excessive bleeding. No palpable lymph nodes. PHYSICAL EXAMINATION: GENERAL: The patient is awake, alert and oriented, lying in bed in no distress. VITAL SIGNS: Temperature 98 F, Pulse 76, Respiratory Rate 18, BP 158/94, Pulse Ox 96% HEENT: Head normocephalic, atraumatic. Eyes: Extraocular muscles are intact. Pupils are equal, round and reactive to light and accommodation. Ears: No lesions. Nose appeared normal. Throat: No exudate or erythema. NECK: Supple. No JVD, no carotid bruit. No lymphadenopathy or thyromegaly. LUNGS: Diminished breath sounds with expiratory rub. Clear to auscultation. Percussion note normal. Chest symmetrical. HEART: S1, S2, no S3. No murmurs. No cyanosis or clubbing. No ascites. Pulses: Dorsalis pedis and posterior tibial pulses +1 to +2 both sides. ABDOMEN: Soft. Non-tender. Bowel sounds active. No CVA tenderness. No mass felt. EXTREMITIES: No edema. Full range of motion of all extremities, equal. NEUROLOGIC: No focal deficit. Cranial nerves II through XII are grossly intact. No headache, no double vision or headache. SKIN: Not dry. Intact. Turgor-normal. LYMPHATIC: No palpable lymph nodes/no lymphedema. MUSCULOSKELETAL: Normal joints with no swelling. Muscle tone is normal. LAB REVIEW: 11/22/18 05:45 11/22/18 05:45 11/22/18 05:45: Sodium 139.3, Potassium 4.43, Chloride 108.5 H, Carbon Dioxide 23.2, Anion Gap 12.03, BUN 17.1 H, Creatinine 0.85, Estimated GFR (MDRD) 67.00, BUN/Creatinine Ratio 20.11, Glucose 122.2 H, Calcium 9.83, Total Bilirubin 0.33 , AST 19.7, ALT 31.0, Alkaline Phosphatase 113.7, Total Protein 6.51, Albumin 4.04, Globulin 2.47, Albumin/Globulin Ratio 1.63 11/22/18 05:45: WBC 13.29 H, RBC 4.48, Hgb 13.0, Hct 39.7, MCV 88.6, MCH 29.0, MCHC 32.7, RDW Coeff of [place]anner 13.1, Plt Count 190, Immature Gran % (Auto) 0.6, Neut % (Auto) 85.4, Lymph % (Auto) 10.9, [place] % (Auto) 3.0, Eos % (Auto) 0.0, Baso % (Auto) 0.1, Immature Gran # (Auto) 0.1, Neut # (Auto) 11.4 H, Lymph # ( Auto) 1.5, [place] # (Auto) 0.4, Eos # (Auto) 0.0, Baso # (Auto) 0.0 11/21/18 04:20: Amylase 51.8, Lipase 56.1 11/20/18 04:20: Amylase 58.3, Lipase 102.3 ASSESSMENT: Please see below. 1. Pneumonia by CT scan with bronchitis 2. Chronic lung disease with history of smoker. 3. Abdominal pain with nausea 4. Abnormal liver enzymes PLAN: 1. Stop IV fluids 2. Stop Lisinopril 3. Start Losartan 100mg daily Plan and coordination of the patient's care discussed in the presence of Display Trimmer and nurse. SCRIBED BY: JUDAH SCHMITT Insurance Plan Specialist scribed while in presence of service performed by Dr. Woods/Di Jaffe APRN on 11/22/18 ([id number])
[2018-11-22] MEDS: K-DUR PO SCH ×2 (08:48→16:49)
[2018-11-22] MEDS: ZITHROMAX 500 MG in SODIUM CHLORIDE 250 ML IV SCH (08:48)
[2018-11-22] MEDS: NEURONTIN PO SCH ×2 (08:48→20:45)
--- NOTE | 2018-11-22 16:56 | CT ---
EXAM: CT of the chest with and without contrast History: Cough, left lung nodule. Comparison: Chest CT 11/20/2018 Technique: Multiplanar CT images through the thorax were obtained with and without the administratio n of IV contrast Findings: Heart size is normal. No pericardial effusion. No thoracic aortic aneurysm. No patholog ically enlarged thoracic lymph nodes. Mild emphysema. No consolidation. Mild diffuse bronchial wall thickening. No pleural fluid and no pneumothorax. No change in the 7 mm left lower lobe pleural-based nodule. No developing lung nodule s. Within the visualized upper abdomen, status post cholecystectomy. No acute osseous abnormalities. P ostsurgical changes of the cervical spine Impression: 1. Diffuse bronchial wall thickening but no evidence for pneumonia. 2. Mild emphysema. 3. No change in the 7 mm left lower lobe pleural-based nodule is indeterminate. Recommend follow-up chest CT in 3-6 months.
[2018-11-22] MEDS ORDERED: TYLENOL PO PRN (18:02)
[2018-11-22] MEDS: ZOLOFT PO SCH (20:45)
[2018-11-22] MEDS: VALIUM PO SCH (20:45)
[2018-11-23 04:39] VITALS: BP 147/76; TEMP 98
[2018-11-23] MEDS: DUONEB NEB SCH (04:42)
[2018-11-23] MEDS: PRILOSEC PO SCH (05:46)
[2018-11-23] MEDS: CARAFATE PO SCH ×2 (05:46→10:51)
[2018-11-23] MEDS: SODIUM CHLORIDE 1,000 ML IV SCH (07:16)
--- NOTE | 2018-11-23 08:52 | PCM.PROG ---
Attending Provider: ATTENDING PROVIDER: Dr. KAYCEE WOODS This patient is seen with Di Jaffe, Nurse Practitioner. DATE OF SERVICE: 11/23/18 SUBJECTIVE: This 68 year old WHITE/ F was hospitalized 11/20/18. The patient is resting comfortably and doing well. Her shortness of breath has improved. Repeat chest CT shows no pneumonia. She doesn't have any abdominal pain or diarrhea. Patient has a good appetite. Discharge home today. REVIEW OF SYSTEMS: CONSTITUTIONAL: No night sweats. No fatigue, malaise, lethargy. No fever or chills. HEENT: Eyes: No visual changes. No eye pain. No eye discharge. ENT: No runny nose. No epistaxis. No sinus pain. No odynophagia. No congestion. RESPIRATORY: Cough, no congestion. No hemoptysis. No shortness of breath. CARDIOVASCULAR: No angina symptoms. No CHF symptoms. No atypical chest pain for CAD. No palpitations. No orthopnea.. GASTROINTESTINAL: No abdominal pain. No nausea or vomiting. No diarrhea or constipation. No hematemesis. No hematochezia. GENITOURINARY: No urgency. No frequency. No dysuria. No hematuria. No obstructive symptoms. No discharge. No pain. No significant abnormal bleeding. MUSCULOSKELETAL: No musculoskeletal pain; no joint swelling. NEUROLOGICAL: Awake, alert, oriented to time, place and person. No headache. No neck pain. No syncope. No seizures. No dizziness. PSYCHIATRIC: Not anxious. No depression. No suicidal thoughts. No homicidal thoughts. SKIN: No rash. No lesions. No wounds. ENDOCRINE: No unexplained weight loss. No weight gain. HEMATOLOGIC/LYMPHATIC: No anemia. No purpura. No petechiae. No prolonged or excessive bleeding. No palpable lymph nodes. PHYSICAL EXAMINATION: GENERAL: The patient is awake, alert and oriented, lying in bed in no distress. VITAL SIGNS: Temperature 98 F, Pulse 80, Respiratory Rate 20, BP 147/76, Pulse Ox 94% HEENT: Head normocephalic, atraumatic. Eyes: Extraocular muscles are intact. Pupils are equal, round and reactive to light and accommodation. Ears: No lesions. Nose appeared normal. Throat: No exudate or erythema. NECK: Supple. No JVD, no carotid bruit. No lymphadenopathy or thyromegaly. LUNGS: Diminished breath sounds. Clear to auscultation. Percussion note normal. Chest symmetrical. HEART: S1, S2, no S3. No murmurs. No cyanosis or clubbing. No ascites. Pulses: Dorsalis pedis and posterior tibial pulses +1 to +2 both sides. ABDOMEN: Soft. Non-tender. Bowel sounds active. No CVA tenderness. No mass felt. EXTREMITIES: No edema. Full range of motion of all extremities, equal. NEUROLOGIC: No focal deficit. Cranial nerves II through XII are grossly intact. No headache, no double vision or headache. SKIN: Not dry. Intact. Turgor-normal. LYMPHATIC: No palpable lymph nodes/no lymphedema. MUSCULOSKELETAL: Normal joints with no swelling. Muscle tone is normal. LAB REVIEW: 11/23/18 04:30 11/23/18 04:30 11/23/18 04:30: Sodium 138.0, Potassium 4.94, Chloride 105.8, Carbon Dioxide 22.3, Anion Gap 14.84, BUN 20.0 H, Creatinine 0.99, Estimated GFR (MDRD) 56.00, BUN/Creatinine Ratio 20.20, Glucose 128.2 H, Calcium 10.11, Total Bilirubin 0.39 , AST 20.0, ALT 26.6, Alkaline Phosphatase 110.4, Total Protein 7.08, Albumin 4.33, Globulin 2.75, Albumin/Globulin Ratio 1.57 11/23/18 04:30: WBC 10.63 H, RBC 4.76, Hgb 13.8, Hct 41.6, MCV 87.4, MCH 29.0, MCHC 33.2, RDW Coeff of Tanner 13.1, Plt Count 258 D, Immature Gran % (Auto) 0.8, Neut % (Auto) 83.0, Lymph % (Auto) 13.3, Charles % (Auto) 2.7, Eos % (Auto) 0.0, Baso % (Auto) 0.2, Immature Gran # (Auto) 0.1, Neut # (Auto) 8.8 H, Lymph # ( Auto) 1.4, Charles # (Auto) 0.3 L, Eos # (Auto) 0.0, Baso # (Auto) 0.0 ASSESSMENT: Please see below. 1. Abdominal pain, resolved 2. Pneumonia, improved 3. COPD 4. Smoker PLAN: 1. Discharge home. 2. Omnicef 300mg twice a day times 7 days 3. Prednisone 10mg twice for 5 days, daily for 2 days 4. Phenergan with codeine cough syrup one teaspoon Q 6 hours PRN 5. Use Nebulizer three times a day as scheduled 6. Smoking cessation advised. Plan and coordination of the patient's care discussed in the presence of Soft Sugar Operator Head and nurse. SCRIBED BY: JUDAH SCHMITT Field Enumerator scribed while in presence of service performed by Dr. Woods/Di Jaffe APRN on 11/23/18 ([id number])
[2018-11-23] MEDS: NORVASC PO SCH (09:12)
[2018-11-23] MEDS: ROCEPHIN 1 GM in SODIUM CHLORIDE 50 ML IV SCH (09:12)
[2018-11-23] MEDS: COZAAR PO SCH (09:12)
[2018-11-23] MEDS: ASPIRIN EC PO SCH (09:12)
[2018-11-23] MEDS: NORCO 7.5-325 PO SCH (09:13)
[2018-11-23] MEDS: COREG PO SCH (09:13)
[2018-11-23] MEDS: NEURONTIN PO SCH (09:13)
[2018-11-23] MEDS: BUSPAR PO SCH (09:13)
[2018-11-23] MEDS: COLESTID PO SCH (09:14)
[2018-11-23] MEDS: K-DUR PO SCH (09:14)
[2018-11-23] MEDS: SOLU-MEDROL 40 MG IVP SCH (10:52)
--- NOTE | 2018-11-23 12:25 | CM.DICTOOL ---
ADMISSION: 11/20/18 14:26 DISCHARGE: NOVEMBER 23, 2018 DATE OF SERVICE: 11/23/18 FINAL DIAGNOSIS FOCAL PNEUMONIA: LEFT UPPER LOBE ACUTE BRONCHITIS COUGH, CHRONIC COPD HYPERTENSION DYSLIPIDEMIA CHRONIC KIDNEY DISEASE: STAGE 2-3 GERD HEPATITIS B DEPRESSION/ANXIETY DILATED BILIARY DUCT TOBACCO USE, SMOKER GENERALIZED OSTEOARTHRITIS DEGENERATIVE JOINT DISEASE OF THE SPINE CT CHEST: 11/22/18 7 MM LEFT LOWER LOBE PLEURAL BASED NODULE; INDETERMINATE. RECOMMEND F/U CT 3-6 MONTHS. ENDOSCOPY WITH ULTRASOUND, BIOPSY AND DILATION (AUG, 2018 DR. MACY VICENTE) CHOLECYSTECTOMY HYSTERECTOMY APPENDECTOMY RENAL FISTULA CERVICAL SPINE SURGERY CARDIAC CATHETERIZATION, 2015 LAST VITALS Temp Pulse Resp BP Pulse Ox 98 F 80 20 147/76 H 94 L 11/23/18 04:35 11/23/18 04:35 11/23/18 04:35 11/23/18 04:35 11/23/18 04:35 TAKE THESE MEDICATIONS AT HOME Albuterol Sulfate [Proair Hfa] 2 puffs IH Q6H [facility] Last Admin: unknown Furosemide [Lasix] 20 mg PO Daily PRN Last Admin: unknown Hydrocodone Bitart/Acetaminophen ([place] 7.5-325) 1 tab PO TID [facility] Last Admin: 11/22/18 20:44 Dose: 1 tab Amlodipine Besylate (Norvasc) 5 mg PO BID [facility] Last Admin: 11/22/18 20:45 Dose: 5 mg Aspirin (Aspirin Ec) 81 mg PO DAILYWM [facility] Last Admin: 11/22/18 08:47 Dose: 81 mg Buspirone HCl (Buspar) 30 mg PO BID [facility] Last Admin: 11/22/18 20:44 Dose: 30 mg Carvedilol (Coreg) 6.25 mg PO DAILY [facility] Last Admin: 11/23/18 09:00 Dose: 6.25 mg Diazepam (Valium) 5 mg PO BEDTIME [facility] Last Admin: 11/22/18 20:45 Dose: 5 mg Gabapentin (Neurontin) 300 mg PO BID [facility] Last Admin: 11/22/18 20:45 Dose: 300 mg Losartan Potassium (Cozaar) 100 mg PO DAILY [facility] Last Admin: 11/22/18 08:47 Dose: 100 mg Omeprazole (Prilosec) 20 mg PO BIDAC [facility] Last Admin: 11/23/18 05:46 Dose: 20 mg Sertraline HCl (Zoloft) 100 mg PO BEDTIME [facility] Last Admin: 11/22/18 20:45 Dose: 100 mg Levalbuterol HCl [Xopenex] 1.25 mg IH TID [facility] Sucralfate (Carafate) 1 gm PO ACHS [facility] Last Admin: 11/23/18 05:46 Dose: 1 gm Omnicef 300 mg PO BID [facility] for SEVEN days Last Admin: Prednisone 10 mg PO BID for FIVE days, then 10 mg PO daily for TWO days Last Admin: Phenergan with Codeine 1 teaspoon PO Q6H PRN for cough Last Admin: ALLERGIES Sulfa (Sulfonamide Antibiotics) Adverse Reaction (Verified 11/20/18 12:57) DISCONTINUED MEDICATIONS ZESTRIL 40 MG PO BID COREG 3.125 MG PO DAILY NEW PRESCRIPTIONS: OMNICEF 300 MG PO 1 CAPSULE BID FOR SEVEN DAYS PREDNISONE 10 MG PO 1 TABLET BID FOR FIVE DAYS THEN 1 TABLET DAILY FOR TWO DAYS PHENERGAN WITH CODEINE 1 TEASPOON EVERY 6 HOURS NEEDED FOR COUGH COREG 6.25 MG PO 1 TABLET DAILY SMOKING: SMOKER DISEASE SPECIFIC EDUCATION: ABDOMINAL PAIN PNEUMONIA BRONCHITIS HYPERTENSION SMOKING CESSATION MEDICATION FOLLOW UP APPOINTMENT LAB REVIEW: 11/23/18 04:30 11/23/18 04:30 11/23/18 04:30: Sodium 138.0, Potassium 4.94, Chloride 105.8, Carbon Dioxide 22.3, Anion Gap 14.84, BUN 20.0 H, Creatinine 0.99, Estimated GFR (MDRD) 56.00, BUN/Creatinine Ratio 20.20, Glucose 128.2 H, Calcium 10.11, Total Bilirubin 0.39 , AST 20.0, ALT 26.6, Alkaline Phosphatase 110.4, Total Protein 7.08, Albumin 4.33, Globulin 2.75, Albumin/Globulin Ratio 1.57 11/23/18 04:30: WBC 10.63 H, RBC 4.76, Hgb 13.8, Hct 41.6, MCV 87.4, MCH 29.0, MCHC 33.2, RDW Coeff of Tanner 13.1, Plt Count 258 D, Immature Gran % (Auto) 0.8, Neut % (Auto) 83.0, Lymph % (Auto) 13.3, Dickenson % (Auto) 2.7, Eos % (Auto) 0.0, Baso % (Auto) 0.2, Immature Gran # (Auto) 0.1, Neut # (Auto) 8.8 H, Lymph # ( Auto) 1.4, Dickenson # (Auto) 0.3 L, Eos # (Auto) 0.0, Baso # (Auto) 0.0 PLAN: DISCHARGE HOME TODAY 11/23/2018 DIET: REGULAR DIET ACTIVITY: GRADUALLY INCREASE ACTIVITY TOLERATED KEEP YOUR SCHEDULED APPOINTMENT WITH DR. WOODS/MADDIE FERREIRA APRN ON TuesdayNovember AT 3 PM. PLEASE CALL [phone] TO RESCHEDULE IF YOU CAN NOT KEEP THAT APPOINTMENT. CODE STATUS: DO NOT RESUSCITATE ALERT, ORIENTED TIMES THREE. MS. ELENA IS AGREEABLE WITH DISCHARGE HOME TODAY. SHE IS INDEPENDENT WITH ALL ACTIVITIES OF DAILY LIVING. DOES NOT REQUIRE USE OF ASSISTANCE DEVICES FOR AMBULATION. NO STOOLS IN THE PAST 24 HOURS. HER APPETITE IS GOOD WITH MEAL INTAKE 75%-100%. NO NAUSEA/VOMITING, OR ABDOMINAL PAIN TODAY. ADEQUATE HYDRATION STATUS. SKIN IS INTACT. MARCELINO WOODS MD MADDIE FERREIRA APRN
--- NOTE | 2018-11-27 13:39 | PN ---
DATE OF SERVICE: 11/22/18 SUBJECTIVE: The patient was seen and examined with the nurse practitioner. The patient is strongly advised to quit smoking. Counseling for smoking done. PHYSICAL EXAMINATION: HEENT: Head normocephalic, atraumatic. Eyes: Extraocular muscles are intact. Pupils are equal, round and reactive to light and accommodation. Ears: No lesions. Nose appeared normal. Throat: No exudate or erythema. NECK: Supple. No JVD, no carotid bruit. No lymphadenopathy or thyromegaly. LUNGS: Decreased breath sounds but clear to auscultation. Percussion note normal. Chest symmetrical. HEART: S1, S2, no S3. No murmurs. No cyanosis or clubbing. No ascites. Pulses: Dorsalis pedis and posterior tibial pulses +1 to +2 bilaterally. ABDOMEN: Soft. Nontender. Bowel sounds active. No CVA tenderness. No mass felt. EXTREMITIES: No edema. Full range of motion of all extremities, equal. NEUROLOGIC: No focal deficit. Cranial nerves II through XII are grossly intact. No headache, no double vision or headache. SKIN: Not dry. Intact. Turgor - normal. LYMPHATIC: No palpable lymph nodes/no lymphedema. MUSCULOSKELETAL: Normal joints with no swelling. Muscle tone is normal. ASSESSMENT/PLAN: 1. Continue acute bronchitis treatment with antibiotics, nebs and steroids. The side effects of steroids including avascular necrosis of femoral head discussed. Osteoporosis discussed. 2. The patient has also had acute gastroenteritis with abdominal pain which seems to be under control. Condition otherwise stable. TIME SPENT: More than 30 minutes. Plan and coordination of the patient's care discussed in the presence of nurse. TIMMY
--- NOTE | 2018-11-27 13:43 | PN ---
DATE OF SERVICE: 11/23/18 SUBJECTIVE: The patient was hospitalized with abdominal pain, more like gastroenteritis and also had evidence of bronchitis/pneumonitis. The patient's condition has improved. She is going to be discharged on Phenergan with Codeine and Prednisone. Also counseling for smoking done. Her abdominal findings did not reveal any rise in amylase or lipase. Condition stable. The patient was seen and examined with nurse practitioner. TIME SPENT: More than 30 minutes. Plan and coordination of the patient's care discussed in the presence of nurse. TIMMY
--- NOTE | 2018-11-27 13:45 | PN ---
CODING FOR BILLING 11/20/18 LEVEL 5 11/21/18 INTERMEDIATE 11/22/18 INTERMEDIATE 11/23/18 DISCHARGE MTDD
--- NOTE | 2018-11-29 08:22 | DS ---
DATE OF SERVICE: 11/23/18 FINAL DIAGNOSIS: 1.FOCAL PNEUMONIA: LEFT UPPER LOBE 2.ACUTE BRONCHITIS 3.COUGH, CHRONIC 4.COPD 5.HYPERTENSION 6.DYSLIPIDEMIA 7.CHRONIC KIDNEY DISEASE: STAGE 2-3 8.GERD 9.HEPATITIS B 10.DEPRESSION/ANXIETY 11.DILATED BILIARY DUCT 12.TOBACCO USE, SMOKER 13.GENERALIZED OSTEOARTHRITIS 14.DEGENERATIVE JOINT DISEASE OF THE SPINE 15.CT CHEST: 11/22/18 7 MM LEFT LOWER LOBE PLEURAL BASED NODULE; INDETERMINATE. RECOMMEND F/U CT 3-6 MONTHS. 16.ENDOSCOPY WITH ULTRASOUND, BIOPSY AND DILATION (AUG, 2018 DR. MACY VICENTE) 17.CHOLECYSTECTOMY 18.HYSTERECTOMY 19.APPENDECTOMY 20.RENAL FISTULA 21.CERVICAL SPINE SURGERY 22.CARDIAC CATHETERIZATION, 2015 LAST VITALS: Temp Pulse Resp BP Pulse Ox 98 F 80 20 147/76 H 94 L 11/23/18 04:35 11/23/18 04:35 11/23/18 04:35 11/23/18 04:35 11/23/18 04:35 DISCHARGE INSTRUCTIONS: DISCHARGE HOME TODAY 11/23/2018. KEEP YOUR SCHEDULED APPOINTMENT WITH DR. WOODS/ MADDIE FERREIRA APRN ON TuesdayNovember AT 3 PM. PLEASE CALL [phone] TO RESCHEDULE IF YOU CAN NOT KEEP THAT APPOINTMENT. CODE STATUS: DO NOT RESUSCITATE. TAKE THESE MEDICATIONS AT HOME: Albuterol Sulfate [Proair Hfa] 2 puffs IH Q6H [facility] Furosemide [Lasix] 20 mg PO Daily PRN Hydrocodone Bitart/Acetaminophen ([place] 7.5-325) 1 tab PO TID [facility] Amlodipine Besylate (Norvasc) 5 mg PO BID [facility] Aspirin (Aspirin Ec) 81 mg PO DAILYWM [facility] Buspirone HCl (Buspar) 30 mg PO BID [facility] Carvedilol (Coreg) 6.25 mg PO DAILY [facility] Diazepam (Valium) 5 mg PO BEDTIME [facility] Gabapentin (Neurontin) 300 mg PO BID [facility] Losartan Potassium (Cozaar) 100 mg PO DAILY [facility] Omeprazole (Prilosec) 20 mg PO BIDAC [facility] Sertraline HCl (Zoloft) 100 mg PO BEDTIME [facility] Levalbuterol HCl [Xopenex] 1.25 mg IH TID [facility] Sucralfate (Carafate) 1 gm PO ACHS [facility] Omnicef 300 mg PO BID [facility] for SEVEN days Prednisone 10 mg PO BID for FIVE days, then 10 mg PO daily for TWO days Phenergan with Codeine 1 teaspoon PO Q6H PRN for cough ALLERGIES: Sulfa (Sulfonamide Antibiotics) Adverse Reaction (Verified 11/20/18 12:57) DISCONTINUED MEDICATIONS: ZESTRIL 40 MG PO BID COREG 3.125 MG PO DAILY NEW PRESCRIPTIONS: OMNICEF 300 MG PO 1 CAPSULE BID FOR SEVEN DAYS PREDNISONE 10 MG PO 1 TABLET BID FOR FIVE DAYS THEN 1 TABLET DAILY FOR TWO DAYS PHENERGAN WITH CODEINE 1 TEASPOON EVERY 6 HOURS NEEDED FOR COUGH COREG 6.25 MG PO 1 TABLET DAILY SMOKING: SMOKER DISEASE SPECIFIC EDUCATION: ABDOMINAL PAIN PNEUMONIA BRONCHITIS HYPERTENSION SMOKING CESSATION MEDICATION FOLLOW UP APPOINTMENT DIET: REGULAR DIET ACTIVITY: GRADUALLY INCREASE ACTIVITY TOLERATED HOSPITAL COURSE: This is a 68 year old white female who presented to the emergency room with cough, shortness of breath, abdominal pain, nausea along with diarrhea. Chest x- ray showed changes associated with COPD. CT of chest showed focal pneumonia. She was admitted and placed on Rocephin 1 gram IV daily. Kidney function was slightly elevated showing mild dehydration. She did have a questionable nodule 7mm in her left lower lobe. They recommended a repeat CT which we did yesterday evening which showed no change in the nodule and recommended a three to [address] which we will do in 3-6 months. She has improved remarkably well. She initially receiving IV Zofran and has since had no abdominal pain or nausea. Initially was running a low grade fever but has since resolved after admission. With the use of steroids she was placed on Solu-Medrol 80mg Q 12 hours along with Xopenex NEBS treatments and the Rocephin. She was improved remarkably. She requiring oxygen initially, had abnormal ABG's but that has since improved. She is 95% this morning on room air. She has home oxygen as well as home nebulizer treatment. She is to continue doing her NEBS treatments three times a day as scheduled. She has been eating well for the past 24 hours. Kidney function has improved. Her blood pressure was slightly elevated on admission so we discontinued her Lisinopril and placed her on Losartan 100mg daily as well as Coreg 6.25mg daily. We will followup with her in the office next week. Information regarding smoking cessation has been provided. TIME SPENT: More than 60 minutes. MTDD
== END 2018-11-23 13:36 | disposition home or self-care (01) | DRG 193 ==
LOC: ED 12:14 → MEDSURG B 14:26
PROVIDERS: ADMIT Internal Medicine; ATTEND Internal Medicine
DX: J18.9 Pneumonia, unspecified organism (principal); K83.1 Obstruction of bile duct; B19.10 Unspecified viral hepatitis B without hepatic coma; J06.9 Acute upper respiratory infection, unspecified; J20.9 Acute bronchitis, unspecified; J44.9 Chronic obstructive pulmonary disease, unspecified; I10 Essential (primary) hypertension; N18.2 Chronic kidney disease, stage 2 (mild); K21.9 Gastro-esophageal reflux disease without esophagitis; M19.90 Unspecified osteoarthritis, unspecified site; M47.9 Spondylosis, unspecified; E78.5 Hyperlipidemia, unspecified; E86.0 Dehydration; F41.8 Other specified anxiety disorders; R19.7 Diarrhea, unspecified; R10.9 Unspecified abdominal pain; R05 Cough; R09.81 Nasal congestion; R53.81 Other malaise; R63.0 Anorexia; R06.02 Shortness of breath; R91.1 Solitary pulmonary nodule; Z72.0 Tobacco use
CPT/HCPCS: 36415; 80053; 81001; 82150; 82550; 82803; 83605; 83690; 84145; 84484; 85007; 85025; 87040; 87502; 87651; 93005; 93010; 94640; 96365; 96375; 97802; 99284

== ENCOUNTER 2019-01-13 17:59 | Emergency (ER) | payer OTHER ==
[2019-01-13 18:03] VITALS: BMI 26.1
--- NOTE | 2019-01-13 18:18 | ED.PDOC ---
General ED Provider: Dr. BOBO LI Chief Complaint: Altered Mental Status Stated Complaint: tired, staggering,could not sleep,chronic asthma on Coreg and BP meds. Neighbour helping in the house recommended a visoit to ER Time Seen by Physician: 18:15 Mode of Arrival: Walk-In Information Source: Patient Exam Limitations: No limitations Primary Care Provider: KAYCEE WOODS Nursing and Triage Documentation Reviewed and Agree: Yes Does patient meet sepsis criteria?: No System Inflammatory Response Syndrome: Not Applicable Sepsis Protocol: For patient's 13 years and over: Temp is 96.8 and below OR 101 and greater Pulse >90 BPM Resp >20/minute Acutely Altered Mental Status Are patient's symptoms suggestive of a new infection, such as: -Pneumonia -Skin, Soft Tissue -Endocarditis -UTI -Bone, Joint Infection -Implantable Device -Acute Abdominal Infection -Wound Infection -Meningitis -Blood Stream Catheter Infection -Unknown Cardiovascular Complaint Exam - Hypertension Complaint/Exam Onset/Duration: from last night.no acute distress but chronically altered ABG, no chest kamilla Symptoms Are: Still present Timing: Intermittent Reported B/P Prior to Arrival: 168/80 Aggravating: Reports: None Alleviating: Reports: Rest Associated Signs and Symptoms: Reports: Anxiety, Weakness, Dizziness Related History: Reports: Similar episode, Current Ca Allan.Lyle, Other Related Surgical History: Reports: None Cardiac Risk Factors: Reports: Hypertension Recent Change in Medications: No A/V Nicking: No Papilledema Present: No JVD Present: No Carotid Bruit Present: No Femoral Pulses Bounding: No Differential Diagnoses: Hypertension, Other Quality Indicator For Non-Traumatic Chest Pain/Syncope: EKG Performed Review of Systems - Review Of Systems Constitutional: Reports: Fever, Weakness, Other Eyes: Reports: No symptoms Ears, Nose, Mouth, Throat: Reports: No symptoms Respiratory: Reports: Short of air, Wheezing Cardiac: Reports: No symptoms GI: Reports: No symptoms : Reports: No symptoms Musculoskeletal: Reports: No symptoms Neurological: Reports: Weakness Endocrine: Reports: No symptoms Hematologic/Lymphatic: Reports: No symptoms All Other Systems: Reviewed and Negative Past Medical History - Past Medical History Previously Healthy: No Endocrine: Reports: None Cardiovascular: Reports: Hypertension Respiratory: Reports: COPD Hematological: Reports: None Gastrointestinal: Reports: GERD Genitourinary: Reports: None Neuro/Psych: Reports: Anxiety, Depression Musculoskeletal: Reports: None Cancer: Reports: None Last Menstrual Period: N/A - Surgical History General Surgical History: Reports: Hysterectomy, Appendectomy - Family History Family History: Reports: Unknown - Social History Smoking Status: Current every day smoker Hx Substance Use: No Alcohol Screening: None - Immunizations Tetanus Shot up to Date: No Physical Exam - Physical Exam Appearance: Well-appearing Ill-appearing: Mild Pain Distress: None Eyes: JUSTINO, EOMI, Conjunctiva clear ENT: Ears normal, Nose normal, Oropharynx normal Neck: Supple Respiratory: Airway patent, Breath sounds diminished, Wheezes GI/: Soft, Nontender, No masses, Bowel sounds normal Musculoskeletal: Normal strength, ROM intact, No edema, No calf tenderness Skin: Warm, Dry, Normal color Neurological: Sensation intact, Motor intact, Reflexes intact, Alert, Oriented Psychiatric: Affect appropriate Re-Evaluation - Re-Evaluation Time of Re-Evaluation: 20:41 (COPD exacerb c Metab acid-RF) Status: Unchanged Vital Signs Stable: Yes (metabolic acidosis with RF/COPD exacerb.) Pain Level: none Appearance: NAD Lungs: Other Skin: Warm and Dry Neuro: Alert and Oriented X3 CV: RRR Physician Notification - Case Discussed Physician Notified: Consulted Dr Fabiola JUAREZ-creat 2.75- 18 ABG pH 7.289,Po2 62, CO2 44 vipul chron Time of Notification: 20:14 (Transfer to [facility] for RF.) Critical Care Note - Critical Care Note Total Time (mins): 0 Course - Course Hematology/Chemistry: 01/13/19 18:50 01/13/19 18:50 Orders, Labs, Meds: Lab Review 01/13/19 01/13/19 01/13/19 18:19 18:50 18:50 WBC 8.11 RBC 4.16 L Hgb 12.6 Hct 38.0 MCV 91.3 MCH 30.3 MCHC 33.2 RDW Coeff of Tanner 13.6 Plt Count 193 Immature Gran % (Auto) 0.2 Neut % (Auto) 48.9 Lymph % (Auto) 39.6 Pike % (Auto) 6.8 Eos % (Auto) 3.8 Baso % (Auto) 0.7 Immature Gran # (Auto) 0.0 Neut # (Auto) 4.0 Lymph # (Auto) 3.2 Pike # (Auto) 0.6 Eos # (Auto) 0.3 Baso # (Auto) 0.1 D-Dimer (Manual) Puncture Site Rr O2 Saturation 88.0 L ABG pH 7.289 L* ABG pCO2 44.2 ABG pO2 62.0 L ABG HCO3 21.2 L ABG Total CO2 23 ABG Base Excess -5 L FiO2 % 21.0 Sodium 137.7 Potassium 3.41 L Chloride 102.2 Carbon Dioxide 25.7 Anion Gap 13.21 BUN 18.5 H Creatinine 2.75 H Estimated GFR (MDRD) 17.00 BUN/Creatinine Ratio 6.72 Glucose 94.5 Calcium 8.63 Total Bilirubin 0.47 AST 20.8 ALT 14.4 Alkaline Phosphatase 88.7 NT-Pro-B Natriuret Pep 528.000 H Total Protein 6.42 Albumin 3.94 Globulin 2.48 Albumin/Globulin Ratio 1.58 01/13/19 18:50 WBC RBC Hgb Hct MCV MCH MCHC RDW Coeff of Tanner Plt Count Immature Gran % (Auto) Neut % (Auto) Lymph % (Auto) Pike % (Auto) Eos % (Auto) Baso % (Auto) Immature Gran # (Auto) Neut # (Auto) Lymph # (Auto) Pike # (Auto) Eos # (Auto) Baso # (Auto) D-Dimer (Manual) 1107.50 Puncture Site O2 Saturation ABG pH ABG pCO2 ABG pO2 ABG HCO3 ABG Total CO2 ABG Base Excess FiO2 % Sodium Potassium Chloride Carbon Dioxide Anion Gap BUN Creatinine Estimated GFR (MDRD) BUN/Creatinine Ratio Glucose Calcium Total Bilirubin AST ALT Alkaline Phosphatase NT-Pro-B Natriuret Pep Total Protein Albumin Globulin Albumin/Globulin Ratio Orders Category Date Time Status ABG DRAW REQUEST Stat CARDIO 01/13/19 18:19 Completed EKG-(ED ONLY) Stat CARDIO 01/13/19 18:36 Completed NEBULIZER TREATMENT Stat CARDIO 01/13/19 18:29 Completed NPO REMINDER: IMAGING ONCE CARE 01/13/19 18:25 Completed ED APPLY O2 .ONCE EMERGENCY 01/13/19 18:33 Active ARTERIAL BLOOD GAS [ABG] Stat LAB 01/13/19 18:19 Completed CBC W/ AUTO DIFF Stat LAB 01/13/19 18:50 Completed COMPREHENSIVE METABOLIC PANEL Stat LAB 01/13/19 18:50 Completed D-DIMER Stat LAB 01/13/19 18:50 Completed NT-PROBNP Stat LAB 01/13/19 18:50 Completed 0.9 % Sodium Chloride [Saline Flush] MEDS 01/13/19 19:13 Ordered 1 syr IVF PRN PRN Albuterol Sulfate 0.083% Neb [Albuterol 0.083% Neb] MEDS 01/13/19 18:28 Discontinued 1 vial NEB ONCE STA Ceftriaxone Sodium [Rocephin] MEDS 01/13/19 19:24 Discontinued 1 gm .ROUTE .STK-MED ONE Ceftriaxone Sodium [Rocephin] 1 gm MEDS 01/13/19 19:14 Discontinued 0.9 % Sodium Chloride [Sodium Chloride] 50 ml IV ONCE Sodium Chloride 0.9% [Sodium Chloride] 500 ml MEDS 01/13/19 19:13 Active IV 100 mls/hr CHEST, 1V AP ONLY Stat RADS 01/13/19 18:[address] CHEST PE PROTOCOL Stat RADS 01/13/19 18:[address] HEAD W/O CONTRAST Stat RADS 01/13/19 18:23 Completed Medications Generic Name Dose Route Start Last Admin Trade Name Freq PRN Reason Stop Dose Admin Sodium Chloride 500 mls @ 100 mls/hr 01/13/19 19:13 01/13/19 19:35 Sodium Chloride IV 01/14/19 00:12 100 mls/hr .Q5H STA Administration Sodium Chloride 1 syr 01/13/19 19:13 Saline Flush IVF PRN PRN To flush IV Discontinued Medications Generic Name Dose Route Start Last Admin Trade Name Freq PRN Reason Stop Dose Admin Albuterol Sulfate 1 vial 01/13/19 18:28 01/13/19 18:40 Albuterol 0.083% Neb NEB 01/13/19 18:29 1 vial ONCE STA Administration Ceftriaxone Sodium 1 gm/ 50 mls @ 75 mls/hr 01/13/19 19:14 01/13/19 19:35 Sodium Chloride IV 01/13/19 19:53 75 mls/hr ONCE STA Administration Vital Signs: Temp Pulse Resp BP Pulse Ox 01/13/19 20:11 75 158/75 H 94 L 01/13/19 18:10 139/98 H 01/13/19 18:00 100.7 F H 82 18 168/80 H 85 L SHANITA Risk Score SHANITA Risk Score: Risk Score Odds of by 30D 0 0.1 (0.1-0.2) 1 0.3 (0.2-0.3) 2 0.4 (0.3-0.5) 3 0.7 (0.6-0.9) 4 1.2 (1.0-1.5) 5 2.2 (1.9-2.6) 6 3.0 (2.5-3.6) 7 4.8 (3.8-6.1) Departure - Departure Time of Disposition: 20:44 Disposition: TSF SHORT-TRM HOSP Discharge Problem: Acute exacerbation of COPD with asthma, Renal failure (ARF), acute on chronic, Metabolic acidosis Condition: Stable Pt referred to PMD for follow-up: No (transfered to the [facility] IPMP verified?: No Allergies/Adverse Reactions: Allergies Sulfa (Sulfonamide Antibiotics) Adverse Reaction (Verified 01/13/19 18:02) Home Medications: Ambulatory Orders Diazepam [Valium] 5 mg PO BEDTIME 01/07/14 Gabapentin [Neurontin] 300 mg PO BID 01/07/14 Omeprazole [Prilosec] 20 mg PO BIDAC 01/19/14 Buspirone HCl 30 mg PO BID 10/20/14 Sertraline HCl [Zoloft] 100 mg PO BEDTIME 10/20/14 Lisinopril [Zestril] 40 mg PO BID #60 tablet 10/23/14 Aspirin [Aspir 81] 81 mg PO DAILY 11/05/16 Albuterol Sulfate [Proair Hfa] 2 puff IH Q6H 09/20/17 Levalbuterol HCl [Xopenex] 1.25 mg IH Q6HR PRN 09/20/17 Sucralfate [Carafate] 1 gm PO QID 09/20/17 Amlodipine Besylate [Norvasc] 5 mg PO BID tablet 09/26/17 Furosemide [Lasix] 20 mg PO DAILY PRN 09/26/17 Hydrocodone Bit/Acetaminophen [[place] 7.5-325] 1 tab PO TID tab 09/26/17 Carvedilol [Coreg] 6.25 mg PO DAILY #30 tablet 11/23/18 Cefdinir [Omnicef] 300 mg PO Q12HR 7 Days #14 capsule 11/23/18 Codeine/Promethazine Syrup [Phenergan with Codeine 6.25/10 mg/5 ml] 5 ml PO Q6H #6 disp.syrin 11/23/18 Prednisone 10 mg PO BIDWM 5 Days #10 tablet 11/23/18 Prednisone 10 mg PO DAILYWM 2 Days #2 tablet 11/23/18 Transfer Form Completed: Yes Disposition Discussed With: Patient, Family
[2019-01-13] MEDS ORDERED: ALBUTEROL 0.083% NEB NEB STA (18:28)
--- NOTE | 2019-01-13 19:00 | CT ---
EXAM: CT head without contrast HISTORY: Altered level of consciousness and dizziness COMPARISON: CT head 07/01/2015 and multiple priors TECHNIQUE: Serial axial images of the brain were obtained from the skull base to the vertex without IV contrast. FINDINGS: The ventricles, cisterns and sulci are normal. The swartz-white matter junction is well flaca ntained. No midline shift or mass is identified. There is no abnormal intra or extra-axial fluid co llection. The paranasal sinuses and mastoid air cells are clear. The osseous calvarium is intact. IMPRESSION: No acute intracranial abnormality or hemorrhage.
--- NOTE | 2019-01-13 19:00 | DI ---
EXAM: AP single view of the chest. HISTORY: Weakness. Staggering. FINDINGS: The bones are unremarkable. The cardiac silhouette and pulmonary vasculature are within no rmal limits. The costophrenic angles are clear. There is minimal left basilar atelectasis and/or pn eumonia. There is eventration of the right hemidiaphragm. Impression: Minimal left basilar atelectasis and/or pneumonia. Cardiomegaly.
[2019-01-13] MEDS ORDERED: SODIUM CHLORIDE 500 ML IV STA (19:13)
[2019-01-13] MEDS ORDERED: ROCEPHIN 1 GM in SODIUM CHLORIDE 50 ML IV STA (19:14)
[2019-01-13] MEDS ORDERED: ROCEPHIN ONE (19:24)
[2019-01-13 20:12] VITALS: BP 158/75
[2019-01-13 20:52] VITALS: TEMP 99.3
== END 2019-01-13 21:25 | disposition short-term general hospital (02) ==
LOC: ED 17:59
DX: J44.1 Chronic obstructive pulmonary disease with (acute) exacerbation (principal); J45.901 Unspecified asthma with (acute) exacerbation; N17.9 Acute kidney failure, unspecified; E87.2 Acidosis; R41.82 Altered mental status, unspecified; R06.02 Shortness of breath; R53.1 Weakness; R42 Dizziness and giddiness; I10 Essential (primary) hypertension; F17.210 Nicotine dependence, cigarettes, uncomplicated; Z79.899 Other long term (current) drug therapy
CPT/HCPCS: 36415; 80053; 82803; 83880; 85025; 85379; 93005; 93010; 94640; 96365; 99285

== ENCOUNTER 2019-01-13 21:29 | Outpatient (CLI) | payer OTHER ==
[2019-01-13 18:03] VITALS: BMI 26.1
== END 2019-01-13 21:48 | disposition short-term general hospital (02) ==
LOC: AMBL 21:29
PROVIDERS: ATTEND Emergency Medicine
DX: R41.82 Altered mental status, unspecified (principal); J44.1 Chronic obstructive pulmonary disease with (acute) exacerbation; N17.9 Acute kidney failure, unspecified

== ENCOUNTER 2019-04-05 08:46 | Outpatient (CLI) ==
--- NOTE | 2019-04-05 09:56 | CT ---
EXAM: CT abdomen pelvis with and without contrast HISTORY: Weight loss, abdominal pain COMPARISON: 11/20/2018 TECHNIQUE: CT abdomen pelvis performed with and without intravenous contrast. Coronal and sagittal reformatted images obtained. FINDINGS: Granulomatous calcification right lung base. Mild bibasilar subsegmental atelectasis and/ or scarring. No free air. No acute abnormalities of the bones. Heart top normal in size. Liver un remarkable. The patient status post cholecystectomy. The dilation of the common bile duct measuring up to 1.5 cm. The. No peripancreatic inflammation. Granulomas calcification spleen. Spleen other hirsch unremarkable. Adrenals unremarkable. Kidneys unremarkable. Aorta normal in caliber. Moderate atherosclerosis. Bladder unremarkable. Patient status post hysterectomy. No lymphadenopathy or as cites. Small hiatal hernia. No dilated loops small bowel. Appendix not visualized. Mild fecal ret ention in the colon. No inflammatory stranding identified in the abdomen pelvis. IMPRESSION: 1. No acute abnormality identified in the abdomen pelvis. 2. Status post cholecystectomy. Dilation common bile duct appears unchanged and previously describe d on MRI 06/26/2018. 3. Small hiatal hernia. 4. Mild fecal retention in the colon. 5. Atherosclerosis
== END 2019-04-05 08:47 | disposition home or self-care (01) ==
LOC: RAD 08:46
PROVIDERS: ATTEND Internal Medicine
DX: R10.9 Unspecified abdominal pain (principal); R63.4 Abnormal weight loss